=== PATIENT | female | born 1950 | race Caucasian/White ===

== ENCOUNTER → 2017-08-25 | Outpatient (CLI) | payer MEDICARE, OTHER ==
[2017-08-25] MEDS: GADOBUTROL 10 MMOL/10 ML VIAL IV (12:19)
== END | disposition home or self-care (01) ==
LOC: KCIC MRI 11:17
DX: K76.89 Other specified diseases of liver (principal); N28.1 Cyst of kidney, acquired; I51.7 Cardiomegaly; I10 Essential (primary) hypertension
CPT/HCPCS: 74183; A9585

== ENCOUNTER 2018-04-20 06:19 | Emergency (ER) | payer MEDICARE, OTHER ==
[~2018-04-20] VITALS: Ht 165.1 cm; Wt 79.4 kg
[~2018-04-20 06:19] MED LIST: AMLO10TA6 PO; ATOR10TA60 PO
[2018-04-20] MEDS ORDERED: IV NORMAL SALINE 1000ML BAG 1,000 ML IV ONE (07:15)
[2018-04-20] MEDS ORDERED: ONDANSETRON PF 4 MG/2 ML VIAL. IV ONE (07:15)
[2018-04-20] MEDS ORDERED: fentaNYL PF VIAL 100 MCG/2 ML VIAL IV ONE (07:15)
[2018-04-20] MEDS ORDERED: CONTRAST GIVEN. MC PRN (07:15)
[2018-04-20] MEDS ORDERED: IOHEXOL 300 MG/ML 100ML VIAL. IV ONE (07:30)
--- NOTE | 2018-04-20 07:31 | PHYS DOC ---
Past Medical History Past Medical History: Anxiety, Depression, High Cholesterol, Hypertension, Kidney Stone, UTI Past Surgical History: Tonsillectomy, Tubal ligation Additional Past Surgical Histo: kidney stone removal, lacerated ureter Alcohol Use: Rarely Drug Use: None Adult General Chief Complaint Chief Complaint: ABDOMINAL PAIN HPI HPI Patient is a 67 year old female who presents with abdominal pain as well as nausea and vomiting. Initially she had constipation she was prescribed a stool softener however that she began to have diarrhea and her pain moved over more to the left side so she was then being treated for diverticulitis by her primary care doctor she started metronidazole as well as Cipro on April 18 however symptoms seem to be worsening she is still vomiting she has crampy sharp abdominal pain mostly in the periumbilical but mostly left-sided abdominal area. No fever no chest pain symptoms are moderate there slowly worsening with time. Review of Systems Review of Systems Constitutional: Denies fever or chills [] Eyes: Denies change in visual acuity, redness, or eye pain [] HENT: Denies nasal congestion or sore throat [] Respiratory: Denies cough or shortness of breath [] Cardiovascular: No additional information not addressed in HPI [] Neurologic: Denies headache, focal weakness or sensory changes [] All other systems were reviewed and found to be within normal limits, except as documented in this note. Current Medications Current Medications Current Medications Medications (Trade) Dose Ordered Sig/Dakota Start Time Stop Time Status Last Admin Dose Admin Fentanyl Citrate (Fentanyl 2ml Vial) 50 mcg 1X ONCE 04/20/18 07:15 04/20/18 07:16 DC 04/20/18 07:59 50 MCG Info (CONTRAST GIVEN -- Rx MONITORING) 1 each PRN DAILY PRN 04/20/18 07:15 04/22/18 07:14 Iohexol (Omnipaque 300 Mg/ml) 75 ml 1X ONCE 04/20/18 07:30 04/20/18 07:31 DC 04/20/18 08:50 75 ML Magnesium Sulfate/ Dextrose 100 ml @ 100 mls/hr 1X ONCE 04/20/18 08:00 04/20/18 08:59 DC 04/20/18 08:00 100 MLS/HR Ondansetron HCl (Zofran) 4 mg 1X ONCE 04/20/18 07:15 04/20/18 07:39 DC Prochlorperazine Edisylate (Compazine) 10 mg 1X ONCE 04/20/18 08:00 04/20/18 08:01 DC 04/20/18 07:58 10 MG Sodium Chloride 1,000 ml @ 1,000 mls/hr 1X ONCE 04/20/18 07:15 04/20/18 08:14 DC 04/20/18 07:58 1,000 MLS/HR Allergies Allergies Allergies Coded Allergies Type Severity Reaction Last Updated Verified No Known Drug Allergies 08/25/17 No Physical Exam Physical Exam Constitutional: Well developed, well nourished, no acute distress, non-toxic appearance. [] HENT: Normocephalic, atraumatic, bilateral external ears normal, oropharynx moist, no oral exudates, nose normal. [] Eyes: PERRLA, EOMI, conjunctiva normal, no discharge. [] Neck: Normal range of motion, no tenderness, supple, no stridor. [] Cardiovascular:Heart rate regular rhythm, no murmur [] Lungs & Thorax: Bilateral breath sounds clear to auscultation [] Abdomen: Bowel sounds normal, soft, epigastric and left midabdo tenderness, no masses, no pulsatile masses. [] Skin: Warm, dry, no erythema, no rash. [] Back: No tenderness, no CVA tenderness. [] Extremities: No tenderness, no cyanosis, no clubbing, ROM intact, no edema. [] Neurologic: Alert and oriented X 3, normal motor function, normal sensory function, no focal deficits noted. [] Psychologic: Affect normal, judgement normal, mood normal. [] Current Patient Data Vital Signs Vital Signs Date Time Temp Pulse Resp B/P (MAP) Pulse Ox O2 Delivery O2 Flow Rate FiO2 04/20/18 06:48 98.2 72 18 130/72 (91) 96 Room Air 98.2 Lab Values Laboratory Tests Test 04/20/18 07:20 04/20/18 07:30 04/20/18 08:00 Urine Color Yellow Urine Clarity Clear Urine pH 6.0 Urine Specific [place] 1.020 Urine Protein Negative mg/dL (NEG-TRACE) Urine Glucose (UA) Negative mg/dL (NEG) Urine Ketones (Stick) 15 mg/dL (NEG) Urine Blood Negative (NEG) Urine Nitrite Negative (NEG) Urine Bilirubin Negative (NEG) Urine Urobilinogen Dipstick 0.2 mg/dL (0.2 mg/dL) Urine Leukocyte Esterase Small (NEG) Urine RBC Rare /HPF (0-2) Urine WBC 1-4 /HPF (0-4) Urine Squamous Epithelial Cells Occ /LPF Urine Bacteria 0 /HPF (0-FEW) Urine Mucus Slight /LPF White Blood Count 4.0 x10^3/uL (4.0-11.0) Red Blood Count 4.74 x10^6/uL (3.50-5.40) Hemoglobin 12.7 g/dL (12.0-15.5) Hematocrit 38.0 % (36.0-47.0) Mean Corpuscular Volume 80 fL (79-100) Mean Corpuscular Hemoglobin 27 pg (25-35) Mean Corpuscular Hemoglobin Concent 33 g/dL (31-37) Red Cell Distribution Width 16.0 % (11.5-14.5) H Platelet Count 294 x10^3/uL (140-400) Neutrophils (%) (Auto) 61 % (31-73) Lymphocytes (%) (Auto) 25 % (24-48) Monocytes (%) (Auto) 13 % (0-9) H Eosinophils (%) (Auto) 1 % (0-3) Basophils (%) (Auto) 1 % (0-3) Neutrophils # (Auto) 2.4 x10^3uL (1.8-7.7) Lymphocytes # (Auto) 1.0 x10^3/uL (1.0-4.8) Monocytes # (Auto) 0.5 x10^3/uL (0.0-1.1) Eosinophils # (Auto) 0.0 x10^3/uL (0.0-0.7) Basophils # (Auto) 0.0 x10^3/uL (0.0-0.2) Sodium Level 141 mmol/L (136-145) Potassium Level 4.5 mmol/L (3.5-5.1) Chloride Level 104 mmol/L (98-107) Carbon Dioxide Level 24 mmol/L (21-32) Anion Gap 13 (6-14) Blood Urea Nitrogen 9 mg/dL (7-20) Creatinine 0.7 mg/dL (0.6-1.0) Estimated GFR (Cockcroft-Gault) 83.5 BUN/Creatinine Ratio 13 (6-20) Glucose Level 98 mg/dL (70-99) Calcium Level 9.6 mg/dL (8.5-10.1) Total Bilirubin 0.3 mg/dL (0.2-1.0) Aspartate Amino Transferase (AST) 41 U/L (15-37) H Alanine Aminotransferase (ALT) 29 U/L (14-59) Alkaline Phosphatase 95 U/L (46-116) Total Protein 7.0 g/dL (6.4-8.2) Albumin 3.6 g/dL (3.4-5.0) Albumin/Globulin Ratio 1.1 (1.0-1.7) Lipase 133 U/L (73-393) Laboratory Tests 04/20/18 07:30 Laboratory Tests 04/20/18 08:00 EKG EKG EKG shows a normal sinus rhythm rate of 63 no acute ischemic changes noted however there is some nonspecific ST changes noted inferiorly QTC was 518 by computer read but shorter by my read is about 420 i think there is artifact that is making the computer read incorrect. no obvious ST elevation was noted.[ ] Radiology/Procedures Radiology/Procedures [] Impressions: IMPRESSION: 1. No acute intra-abdominal findings. 2. Multiple liver cysts. Electronically signed by: Reagan Garcia MD (04/20/2018 9:08 AM) [id number] Course & Med Decision Making Course & Med Decision Making Pertinent Labs and Imaging studies reviewed. (See chart for details) 67-year-old female who is presenting with initially had vomiting with constipation was treated with MiraLAX then went back and was still having discomfort and then some diarrhea so was prescribed Flagyl and Cipro over last couple of days and she is feeling worse ER workup is negative labs urine CT scan patient feels better in the emergency room after the above treatment she was discharged in stable condition. Return precautions were discussed and she was understanding. Dragon Disclaimer Dragon Disclaimer This electronic medical record was generated, in whole or in part, using a voice recognition dictation system. Departure Departure Impression: Primary Impression: Abdominal pain Disposition: HOME, SELF-CARE Condition: STABLE Referrals: BUD DE DIOS MD (PCP) EDUARDO ROSA MD Apr 20, 2018 07:31
[2018-04-20 07:34] LABS: BILIRUBIN,URINE NEGATIVE (NEG); CLARITY,URINE CLEAR; COLOR,URINE YELLOW; NITRITE,URINE NEGATIVE (NEG); PROTEIN,URINE NEGATIVE (NEG-TRACE); UROBILINOGEN,URINE 0.2 mg/dL (0.2 mg/dL)
[2018-04-20 07:44] LABS: BASO % 1 % (0-3); EOS % 1 % (0-3); HEMOGLOBIN 12.7 g/dL (12.0-15.5); LYMPH % 25 % (24-48); MEAN CORPUSCULAR HEMOGLOBIN 27 pg (25-35); MEAN CORPUSCULAR HGB CONC 33 g/dL (31-37); MEAN CORPUSCULAR VOLUME 80 fL (79-100); MONO # 0.5 x10^3/uL (0.0-1.1); MONO % 13 % (0-9); NEUT # 2.4 x10^3uL (1.8-7.7); NEUT % 61 % (31-73); PLATELET COUNT 294 x10^3/uL (140-400); RED BLOOD COUNT 4.74 x10^6/uL (3.50-5.40)
[2018-04-20 07:46] LABS: BACTERIA,URINE 0 /HPF (0-FEW); RBC,URINE RARE /HPF (0-2); SQUAMOUS EPITHELIAL CELL,UR OCC /LPF
[2018-04-20] MEDS ORDERED: PROCHLORPERAZINE 10 MG/2 ML VIAL. IV ONE (08:00)
[2018-04-20] MEDS ORDERED: MAGNESIUM SULFATE 1GM 100 ML IV ONE (08:00)
[2018-04-20 08:25] LABS: CALCIUM 9.6 mg/dL (8.5-10.1); CREATININE 0.7 mg/dL (0.6-1.0); GFR 83.5
[2018-04-20 08:27] LABS: POTASSIUM 4.5 mmol/L (3.5-5.1)
[2018-04-20 08:31] LABS: ALBUMIN 3.6 g/dL (3.4-5.0); ALBUMIN/GLOBULIN RATIO 1.1 (1.0-1.7); TOTAL BILIRUBIN 0.3 mg/dL (0.2-1.0)
--- NOTE | 2018-04-20 08:40 | EKG ---
[facility] [address] [place] [address] Test Date: 2018-04-20 Test Time: 07:28:49 Pat Name: FRANK BECKWITH Department: Room: Gender: F [employer] In[employer]: NICOLE : 1950 Requested By: EDUARDO ROSA Order Number: [id number] Reading MD: Sunil Ordonez Measurements Intervals [place] Rate: 63 P: 21 CT: 166 QRS: -26 QRSD: 74 T: 24 QT: 502 QTc: 518 Interpretive Statements SINUS RHYTHM LEFTWARD AXIS QRS(T) CONTOUR ABNORMALITY CONSIDER ANTEROSEPTAL MYOCARDIAL DAMAGE INFERIOR Q WAVES PROLONGED QT POSSIBLY ABNORMAL ECG RI6.01 No previous ECG available for comparison Electronically Signed On 04-27-2018 10:59:15 [employer] CAP[employer] by Sunil Ordonez
--- NOTE | 2018-04-20 09:12 | RAD ---
Examination: CT of the abdomen pelvis with IV contrast HISTORY: History of abdominal pain, vomiting COMPARISON: 08/09/2017 TECHNIQUE: Axial CT images of the abdomen pelvis were performed with IV contrast and coronal sagittal reformats are performed. Exposure: One or more of the following individualized dose reduction techniques were utilized for this examination: 1. Automated exposure control 2. Adjustment of the mA and/or kV according to patient size 3. Use of iterative reconstruction technique FINDINGS: Mild bibasilar lung atelectasis. No evidence of free air identified in the abdomen. Multiple cystic structures identified in the liver similar to prior exam likely cysts. The gallbladder is mildly distended. The visualized spleen, adrenals grossly appears unremarkable. The stomach is mildly distended. The visualized pancreas grossly appears unremarkable. The small bowel is nondilated. Feces and gas noted in the colon. The appendix is normal. The bilateral kidneys enhance symmetrically. Urinary bladder is mildly distended moderate degenerative changes lumbar spine. Minimal anterolisthesis of L4 on L5. IMPRESSION: 1. No acute intra-abdominal findings. 2. Multiple liver cysts. Electronically signed by: Reagan Garcia MD (04/20/2018 9:08 AM) [place] [id number]
[2018-04-20 10:00] VITALS: BP 134/77
== END 2018-04-20 10:12 | disposition home or self-care (01) ==
LOC: ER 06:19
DX: R10.13 Epigastric pain (principal); R11.2 Nausea with vomiting, unspecified; R19.7 Diarrhea, unspecified; K76.89 Other specified diseases of liver; I10 Essential (primary) hypertension; E78.00 Pure hypercholesterolemia, unspecified; Z87.440 Personal history of urinary (tract) infections; Z87.442 Personal history of urinary calculi; Z98.51 Tubal ligation status
CPT/HCPCS: 36415; 74177; 80053; 81001; 83690; 84484; 85025; 87086; 93005; 96361; 96365; 96375; 99284; J0780; J3010; J3475; J7030; Q9967

== ENCOUNTER → 2018-11-07 | Outpatient (CLI) | payer MEDICARE, OTHER ==
[~2018-11-07] MED LIST changes: -AMLO10TA6 PO; +AMLO10TA8 PO
--- NOTE | 2018-11-07 12:19 | KCIC ---
Indication:History of nephrolithiasis. Back pain. TECHNIQUE: Grayscale, color Doppler and spectral waveform is of the kidneys obtained. COMPARISON:None FINDINGS: Right kidney measures 11.6 x 4.3 x 5.2 cm without hydronephrosis. IVC is within normal limits. No aortic aneurysm. Left kidney measures 12.2 x 4.7 x 4.8 cm without hydronephrosis. Multiple hepatic cysts are seen, the largest measuring 4.4 cm. Liver measures 17 cm in longest dimension and is normal in size. Main portal vein is patent. Urinary bladder is suboptimally distended. IMPRESSION: 1. No hydronephrosis. 2. No sonographic evidence of renal stones. If concern persists further evaluation with noncontrast CT abdomen pelvis is recommended. Electronically signed by: Christiano Sue DO (11/07/2018 12:17 PM) [facility]
== END | disposition home or self-care (01) ==
LOC: KCIC US 10:22
PROVIDERS: ATTEND Internal Medicine
DX: K76.89 Other specified diseases of liver (principal); N32.89 Other specified disorders of bladder; Z87.442 Personal history of urinary calculi
CPT/HCPCS: 76770

== ENCOUNTER 2019-03-20 10:17 | Emergency (ER) | payer MEDICARE, OTHER ==
[~2019-03-20] VITALS: Ht 165.1 cm; Wt 80.7 kg
[2019-03-20] MEDS ORDERED: IV NORMAL SALINE 1000ML BAG 1,000 ML IV SCH (10:46)
[2019-03-20] MEDS ORDERED: LIDO:MAALOX 1:1 20 ML SINGLE DOSE. SWSW ONE (11:00)
[2019-03-20] MEDS ORDERED: ONDANSETRON PF 4 MG/2 ML VIAL. IVP ONE (11:00)
--- NOTE | 2019-03-20 11:01 | PHYS DOC ---
Past Medical History Past Medical History: Anxiety, Depression, High Cholesterol, Hypertension, Kidney Stone, UTI Additional Past Medical Histor: stomach ulcer Past Surgical History: Tonsillectomy, Tubal ligation Additional Past Surgical Histo: kidney stone removal, lacerated ureter, upper and lower GI scope Alcohol Use: None Drug Use: None Adult General Chief Complaint Chief Complaint: ABDOMINAL PAIN [facility] HPI Patient is a 68-year-old female who presents to the emergency department for evaluation of some generalized abdominal pain, and nausea and vomiting. She states her symptoms have been on and off for several weeks. She saw gastroenterology and had an upper endoscopy in the middle of January, and was diagnosed with a gastric ulcer. She was placed on omeprazole, Carafate, and Zofran. However, she saw her GI doctor last week, and her Carafate was decreased because she felt it was making her worse. She states her symptoms are no better and she is continuing to have some generalized abdominal pain. She has not had any hematemesis, bloody stools, black stools, or diarrhea. She reports being somewhat constipated. She has not had any fevers or chills. She denies any chest pain. There are no alleviating or exacerbating factors to her symptoms otherwise. Review of Systems Review of Systems Constitutional: Denies fever or chills [] Eyes: Denies change in visual acuity, redness, or eye pain [] HENT: Denies nasal congestion or sore throat [] Respiratory: Denies cough or shortness of breath [] Cardiovascular: The patient denies any shortness of breath, chest pain, palpitations, or orthopnea[] GI: No additional information not addressed in HPI [] : Denies dysuria or hematuria [] Musculoskeletal: Denies back pain or joint pain [] Integument: Denies rash or skin lesions [] Neurologic: Denies headache, focal weakness or sensory changes [] Endocrine: Denies polyuria or polydipsia [] All other systems were reviewed and found to be within normal limits, except as documented in this note. Current Medications Current Medications Current Medications Medications (Trade) Dose Ordered Sig/Dakota Start Time Stop Time Status Last Admin Dose Admin Info (CONTRAST GIVEN -- Rx MONITORING) 1 each PRN DAILY PRN 03/20/19 11:45 03/22/19 11:44 Iohexol (Omnipaque 300 Mg/ml) 60 ml 1X ONCE 03/20/19 11:45 03/20/19 11:46 DC 03/20/19 11:45 60 ML Lorazepam (Ativan Inj) 0.5 mg 1X ONCE 03/20/19 11:00 03/20/19 11:01 DC 03/20/19 11:53 0.5 MG Multi-Ingredient Mouthwash/Gargle (Gi Cocktail) 20 ml 1X ONCE 03/20/19 11:00 03/20/19 11:01 DC 03/20/19 11:53 20 ML Ondansetron HCl (Zofran) 4 mg 1X ONCE 03/20/19 11:00 03/20/19 11:01 DC 03/20/19 11:53 4 MG Sodium Chloride 1,000 ml @ 1,000 mls/hr Q1H 03/20/19 10:46 03/20/19 11:45 DC 03/20/19 11:53 1,000 MLS/HR Allergies Allergies Allergies Coded Allergies Type Severity Reaction Last Updated Verified No Known Drug Allergies 08/25/17 No Physical Exam Physical Exam PHYSICAL EXAM: CONSTITUTIONAL: Well developed, well nourished HEAD: normocephalic, atraumatic EENT: PERRL, EOMI. Conjunctivae normal color, sclerae non-icteric; moist mucous membranes. NECK: Supple, non-tender; no meningismus. LUNGS: Lungs CTA, breathing even and unlabored. Normal air movement. HEART: Regular rate and rhythm, no murmur CHEST: No deformity; non-tender ABDOMEN: The abdomen is soft, there is mild diffuse tenderness to palpation to the entire abdomen without focal tenderness, rebound, or guarding, normal bowel sounds are present, no masses or bruits. EXTREM: Normal ROM; no deformity, no calf tenderness. Normal pulses palpable in all extremities. There is no pedal edema. SKIN: No rash; no diaphoresis NEURO: Alert; normal speech and cognition; CN's grossly intact; strength grossly intact without focal deficit. BACK: No CVA TTP. Current Patient Data Vital Signs Vital Signs Date Time Temp Pulse Resp B/P (MAP) Pulse Ox O2 Delivery O2 Flow Rate FiO2 03/20/19 13:06 72 153/79 (103) 95 Room Air 03/20/19 12:00 16 Lab Values Laboratory Tests Test 03/20/19 11:10 White Blood Count 5.1 x10^3/uL (4.0-11.0) Red Blood Count 4.86 x10^6/uL (3.50-5.40) Hemoglobin 14.4 g/dL (12.0-15.5) Hematocrit 42.8 % (36.0-47.0) Mean Corpuscular Volume 88 fL (79-100) Mean Corpuscular Hemoglobin 30 pg (25-35) Mean Corpuscular Hemoglobin Concent 34 g/dL (31-37) Red Cell Distribution Width 13.7 % (11.5-14.5) Platelet Count 320 x10^3/uL (140-400) Neutrophils (%) (Auto) 66 % (31-73) Lymphocytes (%) (Auto) 26 % (24-48) Monocytes (%) (Auto) 7 % (0-9) Eosinophils (%) (Auto) 1 % (0-3) Basophils (%) (Auto) 1 % (0-3) Neutrophils # (Auto) 3.3 x10^3/uL (1.8-7.7) Lymphocytes # (Auto) 1.3 x10^3/uL (1.0-4.8) Monocytes # (Auto) 0.3 x10^3/uL (0.0-1.1) Eosinophils # (Auto) 0.0 x10^3/uL (0.0-0.7) Basophils # (Auto) 0.1 x10^3/uL (0.0-0.2) Urine Collection Type Unknown Urine Color Yellow Urine Clarity Clear Urine pH 6.5 Urine Specific [place] 1.010 Urine Protein Negative mg/dL (NEG-TRACE) Urine Glucose (UA) Negative mg/dL (NEG) Urine Ketones (Stick) Negative mg/dL (NEG) Urine Blood Negative (NEG) Urine Nitrite Negative (NEG) Urine Bilirubin Negative (NEG) Urine Urobilinogen Dipstick 0.2 mg/dL (0.2 mg/dL) Urine Leukocyte Esterase Negative (NEG) Urine RBC 0 /HPF (0-2) Urine WBC 0 /HPF (0-4) Urine Squamous Epithelial Cells Few /LPF Urine Bacteria 0 /HPF (0-FEW) Urine Mucus Slight /LPF Sodium Level 141 mmol/L (136-145) Potassium Level 3.9 mmol/L (3.5-5.1) Chloride Level 104 mmol/L (98-107) Carbon Dioxide Level 27 mmol/L (21-32) Anion Gap 10 (6-14) Blood Urea Nitrogen 11 mg/dL (7-20) Creatinine 1.0 mg/dL (0.6-1.0) Estimated GFR (Cockcroft-Gault) 55.1 BUN/Creatinine Ratio 11 (6-20) Glucose Level 103 mg/dL (70-99) H Calcium Level 9.9 mg/dL (8.5-10.1) Total Bilirubin 0.4 mg/dL (0.2-1.0) Aspartate Amino Transferase (AST) 20 U/L (15-37) Alanine Aminotransferase (ALT) 15 U/L (14-59) Alkaline Phosphatase 85 U/L (46-116) Troponin I Quantitative < 0.017 ng/mL (0.000-0.055) Total Protein 7.6 g/dL (6.4-8.2) Albumin 4.0 g/dL (3.4-5.0) Albumin/Globulin Ratio 1.1 (1.0-1.7) Lipase 168 U/L (73-393) Laboratory Tests 03/20/19 11:10 Laboratory Tests 03/20/19 11:10 EKG EKG Normal sinus rhythm at a rate of 72 beats for minute, [] leftward axis, normal intervals, there are no acute ischemic ST/T changes. There is a rare PVC p resent. Radiology/Procedures Radiology/Procedures PROCEDURE: CT ABD PELV W/ IV CONTRST ONLY PQRS Compliance statement: One or more of the following individualized dose reduction techniques were utilized for this examination: 1. Automated exposure control. 2. Adjustment of the mA and/or kV according to patient size. 3. Use of iterative reconstruction technique. Indication: Abdominal pain. TECHNIQUE: CT abdomen and pelvis with IV contrast with multiplanar reformats. COMPARISON: 04/20/2018 FINDINGS: Heart is normal in size. No pericardial or pleural effusion. Clear lung bases. Multiple low attenuating liver lesions, the largest in segment 8 measuring 4 cm compatible with simple cysts. Spleen, gallbladder, pancreas, adrenals within normal limits. No nephrolithiasis or hydronephrosis. No free pelvic fluid or ascites. No enlarged retroperitoneal or pelvic adenopathy. No bowel obstruction. Normal appendix. Uterus is present. Urinary bladder demonstrates no radiopaque stone. No pneumoperitoneum. No suspicious bony lesion. IMPRESSION: No acute findings.[] PROCEDURE: ABDOMEN LTD ABDOMEN LTD History: Upper abdominal pain Comparison: CT exam the same day Findings: Multiple sonographic images of the abdomen are submitted. There is no abnormality of the pancreas. There is segmental visualization of the inferior vena cava. Abdominal aortic caliber is within normal limits up to 2.5 cm proximally. There are several hypoechoic foci of the liver, largest of the right lobe about 4.5 cm, overall sonographic features of cysts. There is mild coarsening of the echotexture of the liver, possible mild hepatic steatosis. Right lobe of the liver measured 16.6 cm longitudinal. Common bile duct is within normal limits about 0.5 cm. Gallbladder is present without intraluminal abnormality, wall thickening, pericholecystic fluid. Right kidney measured 10.5 x 4.4 x 4.4 cm, no hydronephrosis. Impression: 1. There are hepatic cysts. There may be mild hepatic steatosis. There is no abnormality of the gallbladder. Course & Med Decision Making Course & Med Decision Making Patient remains stable. I discussed test results, the need for close follow-up, and return precautions. Pertinent Labs and Imaging studies reviewed. (See chart for details) []2:40 PM: Prior to being discharged, the patient called her GI doctors office, and was told that she was originally sent here for an ultrasound, which was obtained. I spoke with Dr. Wong, the patient's GI, and I discussed the test results with him. He felt that given the absence of any critical findings at this time, the patient was appropriate to follow up as an outpatient. Test results were reviewed with the patient and return precautions in detail were discussed. Dragon Disclaimer Dragon Disclaimer This electronic medical record was generated, in whole or in part, using a voice recognition dictation system. Departure Departure Impression: Primary Impression: Abdominal pain Disposition: HOME, SELF-CARE Condition: STABLE Referrals: SANTI العراقي MD (PCP) LINDSAY JUDD MD Patient Instructions: Abdominal Pain, Peptic Ulcer Disease BOZENA CASTAÑEDA MD Mar 20, 2019 11:01
[2019-03-20 11:17] LABS: BASO # 0.1 x10^3/uL (0.0-0.2); BASO % 1 % (0-3); EOS % 1 % (0-3); HEMATOCRIT 42.8 % (36.0-47.0); HEMOGLOBIN 14.4 g/dL (12.0-15.5); LYMPH # 1.3 x10^3/uL (1.0-4.8); LYMPH % 26 % (24-48); MEAN CORPUSCULAR HEMOGLOBIN 30 pg (25-35); MEAN CORPUSCULAR HGB CONC 34 g/dL (31-37); MEAN CORPUSCULAR VOLUME 88 fL (79-100); MONO # 0.3 x10^3/uL (0.0-1.1); MONO % 7 % (0-9); NEUT # 3.3 x10^3/uL (1.8-7.7); NEUT % 66 % (31-73); PLATELET COUNT 320 x10^3/uL (140-400); RED BLOOD COUNT 4.86 x10^6/uL (3.50-5.40); RED CELL DISTRIBUTION WIDTH 13.7 % (11.5-14.5); WHITE BLOOD COUNT 5.1 x10^3/uL (4.0-11.0)
[2019-03-20 11:19] LABS: BILIRUBIN,URINE NEGATIVE (NEG); CLARITY,URINE CLEAR; COLOR,URINE YELLOW; NITRITE,URINE NEGATIVE (NEG); PH,URINE 6.5; PROTEIN,URINE NEGATIVE (NEG-TRACE); UROBILINOGEN,URINE 0.2 mg/dL (0.2 mg/dL)
[2019-03-20 11:25] LABS: SQUAMOUS EPITHELIAL CELL,UR FEW /LPF
[2019-03-20 11:26] LABS: BACTERIA,URINE 0 /HPF (0-FEW); RBC,URINE 0 /HPF (0-2); WBC,URINE 0 /HPF (0-4)
[2019-03-20 11:31] LABS: CALCIUM 9.9 mg/dL (8.5-10.1); GFR 55.1; POTASSIUM 3.9 mmol/L (3.5-5.1)
[2019-03-20 11:37] LABS: ALBUMIN/GLOBULIN RATIO 1.1 (1.0-1.7); TOTAL BILIRUBIN 0.4 mg/dL (0.2-1.0); TOTAL PROTEIN 7.6 g/dL (6.4-8.2)
[2019-03-20] MEDS ORDERED: CONTRAST GIVEN. MC PRN (11:45)
[2019-03-20] MEDS ORDERED: IOHEXOL 300 MG/ML 100ML VIAL. IV ONE (11:45)
--- NOTE | 2019-03-20 12:55 | RAD ---
PQRS Compliance statement: One or more of the following individualized dose reduction techniques were utilized for this examination: 1. Automated exposure control. 2. Adjustment of the mA and/or kV according to patient size. 3. Use of iterative reconstruction technique. Indication: Abdominal pain. TECHNIQUE: CT abdomen and pelvis with IV contrast with multiplanar reformats. COMPARISON: 04/20/2018 FINDINGS: Heart is normal in size. No pericardial or pleural effusion. Clear lung bases. Multiple low attenuating liver lesions, the largest in segment 8 measuring 4 cm compatible with simple cysts. Spleen, gallbladder, pancreas, adrenals within normal limits. No nephrolithiasis or hydronephrosis. No free pelvic fluid or ascites. No enlarged retroperitoneal or pelvic adenopathy. No bowel obstruction. Normal appendix. Uterus is present. Urinary bladder demonstrates no radiopaque stone. No pneumoperitoneum. No suspicious bony lesion. IMPRESSION: No acute findings. Electronically signed by: Christiano Sue DO (03/20/2019 12:51 PM) [id number]
[2019-03-20 13:06] VITALS: BP 153/79
--- NOTE | 2019-03-20 13:53 | EKG ---
[facility] [address] [place] [address] Test Date: 2019-03-20 Test Time: 11:05:58 Pat Name: FRANK BECKWITH Department: Room: Gender: F [employer]: : 1950 Requested By: BOZENA CASTAÑEDA Order Number: [id number] Reading MD: Orestes Adams Measurements Intervals [place] Rate: 72 P: NE: QRS: -24 QRSD: 74 T: 21 QT: 374 QTc: 411 Interpretive Statements SINUS RHTYHM VENTRICULAR PREMATURE COMPLEX(ES) LEFTWARD AXIS QRS(T) CONTOUR ABNORMALITY CONSISTENT WITH INFERIOR INFARCT PROBABLY OLD ABNORMAL ECG Electronically Signed On 03-20-2019 13:59:10 [employer]OWEL DISTRIBUT[employer] by Orestes Adams
--- NOTE | 2019-03-20 14:17 | RAD ---
ABDOMEN LTD History: Upper abdominal pain Comparison: CT exam the same day Findings: Multiple sonographic images of the abdomen are submitted. There is no abnormality of the pancreas. There is segmental visualization of the inferior vena cava. Abdominal aortic caliber is within normal limits up to 2.5 cm proximally. There are several hypoechoic foci of the liver, largest of the right lobe about 4.5 cm, overall sonographic features of cysts. There is mild coarsening of the echotexture of the liver, possible mild hepatic steatosis. Right lobe of the liver measured 16.6 cm longitudinal. Common bile duct is within normal limits about 0.5 cm. Gallbladder is present without intraluminal abnormality, wall thickening, pericholecystic fluid. Right kidney measured 10.5 x 4.4 x 4.4 cm, no hydronephrosis. Impression: 1. There are hepatic cysts. There may be mild hepatic steatosis. There is no abnormality of the gallbladder. Electronically signed by: Marco Antonio Claudio MD (03/20/2019 2:14 PM) [id number]
== END 2019-03-20 14:48 | disposition home or self-care (01) ==
LOC: ER 10:17
DX: R10.84 Generalized abdominal pain (principal); R11.2 Nausea with vomiting, unspecified; E78.00 Pure hypercholesterolemia, unspecified; I10 Essential (primary) hypertension; Z87.442 Personal history of urinary calculi; Z87.440 Personal history of urinary (tract) infections; Z98.51 Tubal ligation status; Z87.19 Personal history of other diseases of the digestive system
CPT/HCPCS: 99285; J2060; J2405; J7030; Q9967; 36415; 74177; 76705; 80053; 81001; 83690; 84484; 85025; 93005; 96361; 96374; 96375

== ENCOUNTER 2019-03-23 09:54 | Inpatient (IN) | payer MEDICARE, OTHER ==
[~2019-03-23] VITALS: Ht 165.1 cm; Wt 81.3 kg
[2019-03-23] MEDS ORDERED: ONDANSETRON PF 4 MG/2 ML VIAL. IV ONE (10:45)
[2019-03-23] MEDS ORDERED: IV NORMAL SALINE 1000ML BAG 1,000 ML IV ONE (10:45)
--- NOTE | 2019-03-23 10:52 | PHYS DOC ---
Past Medical History Past Medical History: Anxiety, Depression, High Cholesterol, Hypertension, Kidney Stone, UTI Additional Past Medical Histor: stomach ulcer Past Surgical History: Tonsillectomy, Tubal ligation Additional Past Surgical Histo: kidney stone removal, lacerated ureter, upper and lower GI scope Alcohol Use: None Drug Use: None Adult General Chief Complaint Chief Complaint: BLOODY STOOL HPI HPI Patient is a 68 year old female who presents with 1 week of nausea, vomiting, abdominal pain. Patient states today she had a bowel movement in there was some red blood in the stool. Patient states there is no clots. Patient states she's never seen that much blood in her stool. Patient states the stool was soft and she is not constipated. Patient was here on March 20, 2019 for the same symptoms except for she was not having the blood in the stool. At this time she had a abdomen pelvis CT with IV contrast and an ultrasound and both were negative for any acute findings. Patient states that she took Zofran at 6:00 this morning along with her Carafate, omeprazole Review of Systems Review of Systems Constitutional: fever or chills [] GI: Generalized abdominal pain, nausea, vomiting, bloody stools or denies diarrhea [] Neurologic: Lightheadedness. Denies headache, focal weakness or sensory changes [] All other systems were reviewed and found to be within normal limits, except as documented in this note. Current Medications Current Medications Current Medications Medications (Trade) Dose Ordered Sig/Dakota Start Time Stop Time Status Last Admin Dose Admin Fentanyl Citrate (Fentanyl 2ml Vial) 50 mcg 1X ONCE 03/23/19 12:30 03/23/19 12:31 UNV Ondansetron HCl (Zofran) 4 mg 1X ONCE 03/23/19 10:45 03/23/19 10:46 DC 03/23/19 10:51 4 MG Prochlorperazine Edisylate (Compazine) 10 mg 1X ONCE 03/23/19 12:30 03/23/19 12:31 UNV Sodium Chloride 1,000 ml @ 1,000 mls/hr 1X ONCE 03/23/19 10:45 03/23/19 11:44 DC 03/23/19 10:51 1,000 MLS/HR Allergies Allergies Allergies Coded Allergies Type Severity Reaction Last Updated Verified No Known Drug Allergies 08/25/17 No Physical Exam Physical Exam Constitutional: Well developed, well nourished, no acute distress, non-toxic appearance. [] HENT: Normocephalic, atraumatic, bilateral external ears normal, oropharynx moist, no oral exudates, nose normal. [] Eyes: PERRLA, EOMI, conjunctiva normal, no discharge. [] Neck: Normal range of motion, no tenderness, supple, no stridor. [] Cardiovascular:Heart rate regular rhythm, no murmur [] Lungs & Thorax: Bilateral breath sounds clear to auscultation [] Abdomen: Bowel sounds normal, soft, no tenderness, no masses, no pulsatile masses. [] Skin: Warm, dry, no erythema, no rash. [] Back: No tenderness, no CVA tenderness. [] Extremities: No tenderness, no cyanosis, no clubbing, ROM intact, no edema. [] Neurologic: Alert and oriented X 3, normal motor function, normal sensory function, no focal deficits noted. [] Psychologic: Affect normal, judgement normal, mood normal. [] Current Patient Data Vital Signs Vital Signs Date Time Temp Pulse Resp B/P (MAP) Pulse Ox O2 Delivery O2 Flow Rate FiO2 03/23/19 11:00 62 152/65 (94) 97 03/23/19 10:50 Room Air 03/23/19 10:30 98.6 18 98.6 Lab Values Laboratory Tests Test 03/23/19 10:28 03/23/19 10:35 03/23/19 10:45 03/23/19 11:10 Urine Collection Type Unknown Urine Color Yellow Urine Clarity Clear Urine pH 7.0 Urine Specific [place] 1.015 Urine Protein Negative mg/dL (NEG-TRACE) Urine Glucose (UA) Negative mg/dL (NEG) Urine Ketones (Stick) 15 mg/dL (NEG) Urine Blood Small (NEG) Urine Nitrite Negative (NEG) Urine Bilirubin Negative (NEG) Urine Urobilinogen Dipstick 0.2 mg/dL (0.2 mg/dL) Urine Leukocyte Esterase Negative (NEG) Urine RBC Occ /HPF (0-2) Urine WBC Occ /HPF (0-4) Urine Squamous Epithelial Cells Mod /LPF Urine Bacteria 0 /HPF (0-FEW) Urine Mucus Slight /LPF Stool Occult Blood Positive (NEG) White Blood Count 4.6 x10^3/uL (4.0-11.0) Red Blood Count 4.92 x10^6/uL (3.50-5.40) Hemoglobin 14.7 g/dL (12.0-15.5) Hematocrit 43.3 % (36.0-47.0) Mean Corpuscular Volume 88 fL (79-100) Mean Corpuscular Hemoglobin 30 pg (25-35) Mean Corpuscular Hemoglobin Concent 34 g/dL (31-37) Red Cell Distribution Width 13.8 % (11.5-14.5) Platelet Count 293 x10^3/uL (140-400) Neutrophils (%) (Auto) 70 % (31-73) Lymphocytes (%) (Auto) 21 % (24-48) L Monocytes (%) (Auto) 8 % (0-9) Eosinophils (%) (Auto) 0 % (0-3) Basophils (%) (Auto) 1 % (0-3) Neutrophils # (Auto) 3.2 x10^3/uL (1.8-7.7) Lymphocytes # (Auto) 1.0 x10^3/uL (1.0-4.8) Monocytes # (Auto) 0.3 x10^3/uL (0.0-1.1) Eosinophils # (Auto) 0.0 x10^3/uL (0.0-0.7) Basophils # (Auto) 0.0 x10^3/uL (0.0-0.2) Sodium Level 140 mmol/L (136-145) Potassium Level 4.4 mmol/L (3.5-5.1) Chloride Level 104 mmol/L (98-107) Carbon Dioxide Level 29 mmol/L (21-32) Anion Gap 7 (6-14) Blood Urea Nitrogen 12 mg/dL (7-20) Creatinine 0.9 mg/dL (0.6-1.0) Estimated GFR (Cockcroft-Gault) 62.3 BUN/Creatinine Ratio 13 (6-20) Glucose Level 100 mg/dL (70-99) H Calcium Level 9.3 mg/dL (8.5-10.1) Total Bilirubin 0.5 mg/dL (0.2-1.0) Aspartate Amino Transferase (AST) 21 U/L (15-37) Alanine Aminotransferase (ALT) 18 U/L (14-59) Alkaline Phosphatase 76 U/L (46-116) Troponin I Quantitative < 0.017 ng/mL (0.000-0.055) Total Protein 6.8 g/dL (6.4-8.2) Albumin 3.8 g/dL (3.4-5.0) Albumin/Globulin Ratio 1.3 (1.0-1.7) Laboratory Tests 03/23/19 10:45 Laboratory Tests 03/23/19 11:10 EKG EKG Sinus Rhythm and no STEMI[] Interpretation Time: [address] Silva Radiology/Procedures Radiology/Procedures [] Course & Med Decision Making Course & Med Decision Making Patient states she does not really have any pain but she is uncomfortable states she she's very nauseated. Patient states she kept her medicine and applesauce down. Patient states she did vomit once this morning and was bile. Patient's generalized abdominal tenderness with palpation. Abdomen is soft. Alert and oriented. Ambulatory with a steady gait. Vital signs within normal limits. Speaks in full clear sentences. Skin pink warm and dry. Patient states she called Dr. Hull this morning and that he stated she did not need to go to the emergency room at this time. Patient states at times she will get dizzy but that has been going on all week. She states she's also gets chills that come and go but that it this has also been going on for the last week. Patient rates her generalized discomfort a 7 out of 10. 1223: Patient is still having nausea with dry heaves. Patient is having right lower back pain that wraps around to the right lower abdomen pain. Patient states she would like to stay because she does not want to go home alone and the blood in the dizziness is scaring her. He shouldn't states that she feels like her symptoms are getting worse or she over this last week. I am currently waiting on Dr. Hull to call me back and that I will let him know. 1228: I have spoken to and he states to admit her and I will consult him. Rectal Exam: Normal tone, left outer rectal nontender, non thrombosed, nonbleeding, hemorrhoids, no inner masses, Positive control Stool: Brown Guaiac: Positive Dragon Disclaimer Dragon Disclaimer This electronic medical record was generated, in whole or in part, using a voice recognition dictation system. Departure Departure Impression: Primary Impression: Bloody stool Additional Impressions: Abdominal pain Nausea & vomiting Disposition: 09 ADMITTED INPATIENT Admitting Physician: NOREEN MCGUIRE) Condition: STABLE Referrals: SANTI العراقي MD (PCP) Problem Qualifiers Additional Impressions: Abdominal pain Abdominal location: generalized Qualified Codes: R10.84 - Generalized ab dominal pain Nausea & vomiting Vomiting type: unspecified Vomiting Intractability: non-intractable Qualified Codes: R11.2 - Nausea with vomiting, unspecified LAILA GRIMM [employer] Mar 23, 2019 10:52
[2019-03-23 10:58] LABS: BASO % 1 % (0-3); EOS % 0 % (0-3); HEMATOCRIT 43.3 % (36.0-47.0); HEMOGLOBIN 14.7 g/dL (12.0-15.5); LYMPH % 21 % (24-48); MEAN CORPUSCULAR HEMOGLOBIN 30 pg (25-35); MEAN CORPUSCULAR HGB CONC 34 g/dL (31-37); MEAN CORPUSCULAR VOLUME 88 fL (79-100); MONO # 0.3 x10^3/uL (0.0-1.1); MONO % 8 % (0-9); NEUT # 3.2 x10^3/uL (1.8-7.7); NEUT % 70 % (31-73); PLATELET COUNT 293 x10^3/uL (140-400); RED BLOOD COUNT 4.92 x10^6/uL (3.50-5.40); RED CELL DISTRIBUTION WIDTH 13.8 % (11.5-14.5); WHITE BLOOD COUNT 4.6 x10^3/uL (4.0-11.0)
[2019-03-23 11:15] LABS: FECAL OB PT POSITIVE (NEG)
[2019-03-23 11:30] LABS: CALCIUM 9.3 mg/dL (8.5-10.1); CREATININE 0.9 mg/dL (0.6-1.0); GFR 62.3; POTASSIUM 4.4 mmol/L (3.5-5.1)
[2019-03-23 11:36] LABS: ALBUMIN 3.8 g/dL (3.4-5.0); ALBUMIN/GLOBULIN RATIO 1.3 (1.0-1.7); TOTAL BILIRUBIN 0.5 mg/dL (0.2-1.0); TOTAL PROTEIN 6.8 g/dL (6.4-8.2)
[2019-03-23 11:44] LABS: BACTERIA,URINE 0 /HPF (0-FEW); BILIRUBIN,URINE NEGATIVE (NEG); CLARITY,URINE CLEAR; COLOR,URINE YELLOW; NITRITE,URINE NEGATIVE (NEG); PROTEIN,URINE NEGATIVE (NEG-TRACE); RBC,URINE OCC /HPF (0-2); SQUAMOUS EPITHELIAL CELL,UR MOD /LPF; UROBILINOGEN,URINE 0.2 mg/dL (0.2 mg/dL); WBC,URINE OCC /HPF (0-4)
[2019-03-23] MEDS ORDERED: fentaNYL PF VIAL 100 MCG/2 ML VIAL IVP ONE (12:30)
[2019-03-23] MEDS ORDERED: PROCHLORPERAZINE 10 MG/2 ML VIAL. IV ONE (12:30)
[2019-03-23] MEDS ORDERED: ONDANSETRON PF 4 MG/2 ML VIAL. IV PRN ×2 (13:00→22:45)
[2019-03-23] MEDS ORDERED: fentaNYL PF VIAL 100 MCG/2 ML VIAL IV PRN (13:00)
[2019-03-23] MEDS: IV NORMAL SALINE 1000ML BAG 1,000 ML IV SCH ×2 (13:05→21:46)
[2019-03-23 15:00] VITALS: BP 149/66
[2019-03-23 19:00] VITALS: BP 139/63
[2019-03-23] MEDS: ACETAMINOPHEN 325 MG TABLET. PO PRN ×2 (19:50→23:15)
--- NOTE | 2019-03-23 22:40 | PDOC1 ---
History and Physical Date of Admission Date of Admission DATE: 03/23/19 TIME: 22:18 Identification/Chief Complaint Chief Complaint Lower GI bleeding Source Source: Patient History of Present Illness History of Present Illness Ms Liz is a 68 yo F w/ PMHx Anxiety, Depression, High Cholesterol, Hypertension, Kidney Stone (previous lacerated ureter), PUD who presents to the emergency department for evaluation of some generalized abdominal pain, and nausea and vomiting. She states her symptoms have been on and off for several weeks. She saw gastroenterology and had an upper endoscopy in the middle of January, and was diagnosed with a gastric ulcer. She was placed on omeprazole, Carafate, and Zofran. However, she saw her GI doctor last week, and her Carafate was decreased because she felt it was making her worse. She states her symptoms are no better and she is continuing to have some generalized abdominal pain. She has not had any hematemesis, but now she notes bloody stools, black stools. She reports being somewhat constipated. She has not had any fevers or chills. She denies any chest pain. There are no alleviating or exacerbating factors to her symptoms otherwise. She had an ED visit on 03/20 for similar symptoms, imaging was essentially negative at that time, now she has been vomiting daily since then and having more blood in her stools. Past Medical History Cardiovascular: HTN, Hyperlipidemia Pulmonary: No pertinent hx GI: Peptic Ulcer disease Heme/Onc: No pertinent hx Hepatobiliary: No pertinent hx Psych: Anxiety, Depression Rheumatologic: No pertinent hx Infectious disease: No pertinent hx ENT: No pertinent hx Renal/: No pertinent hx Endocrine: No pertinent hx Dermatology: No pertinent hx Past Surgical History Past Surgical History kidney stone removal, lacerated ureter, upper and lower GI scope Past Surgical History: Tubal Ligation, Tonsillectomy Family History Family History: High Cholestrol, Hypertension Social History Smoke: No ALCOHOL: none Drugs: None Current Problem List Problem List Problems Medical Problems: (1) Abdominal pain Status: Acute (2) Bloody stool Status: Acute (3) Nausea & vomiting Status: Acute Current Medications Current Medications Current Medications Sodium Chloride 1,000 ml @ 1,000 mls/hr 1X ONCE IV Last administered on 03/23/19at 10:51; Start 03/23/19 at 10:45; Stop 03/23/19 at 11:44; Status DC Ondansetron HCl (Zofran) 4 mg 1X ONCE IV Last administered on 03/23/19at 10:51; Start 03/23/19 at 10:45; Stop 03/23/19 at 10:46; Status DC Prochlorperazine Edisylate (Compazine) 10 mg 1X ONCE IV Last administered on 03/23/19at 12:40; Start 03/23/19 at 12:30; Stop 03/23/19 at 12:31; Status DC Fentanyl Citrate (Fentanyl 2ml Vial) 50 mcg 1X ONCE IVP Last administered on 03/23/19at 12:41; Start 03/23/19 at 12:30; Stop 03/23/19 at 12:31; Status DC Ondansetron HCl (Zofran) 4 mg PRN Q8HRS PRN IV NAUSEA/VOMITING Last administered on 03/23/19at 19:54; Start 03/23/19 at 13:00; Stop 03/24/19 at 12:59 Fentanyl Citrate (Fentanyl 2ml Vial) 50 mcg PRN Q1HR PRN IV PAIN; Start 03/23/19 at 13:00; Stop 03/24/19 at 12:59 Sodium Chloride 1,000 ml @ 100 mls/hr Q10H IV Last administered on 03/23/19at 21:46; Start 03/23/19 at 12:58; Stop 03/24/19 at 12:57 Acetaminophen (Tylenol) 650 mg PRN Q6HRS PRN PO pain Last administered on 03/23/19at 19:50; Start 03/23/19 at 19:45 Active Scripts Active Reported Atorvastatin Calcium 10 Mg Tablet 10 Mg PO HS Amlodipine Besylate 10 Mg Tablet 10 Mg PO DAILY Allergies Allergies: Coded Allergies: No Known Drug Allergies (Unverified , 08/25/17) ROS General: YES: Fatigue, Malaise; No: Chills, Night Sweats, Appetite, Other PSYCHOLOGICAL ROS: No: Anxiety, Behavioral Disorder, Concentration difficultie, Decreased libido, Depression, Disorientation, Hallucinations, Hostility, Irritablity, Memory difficulties, Mood Swings, Obsessive thoughts, Physical abuse, Sexual abuse, Sleep disturbances, Suicidal ideation, Other Eyes: No Blurry vision, No Decreased vision, No Double vision, No Dry eyes, No Excessive tearing, No Eye Pain, No Itchy Eyes, No Loss of vision, No Photophobia, No Scotomata, No Uses contacts, No Uses glasses, No Other HEENT: No: Heacaches, Visual Changes, Hearing change, Nasal congestion, Nasal discharge, Oral lesions, Sinus pain, Sore Throat, Epistaxis, Sneezing, Snoring, Tinnitus, Vertigo, Vocal changes, Other ALLERGY AND IMMUNOLOGY: No: Hives, Insect Bite Sensitivity, Itchy/Watery Eyes, Nasal Congestion, Post Nasal Drip, Seasonal Allergies, Other Hematological and Lymphatic: No: Bleeding Problems, Blood Clots, Blood Transfusions, Brusing, Night Sweats, Pallor, Swollen Lymph Nodes, Other ENDOCRINE: No: Breast Changes, Galactorrhea, Hair Pattern Changes, Hot Flashes, Malaise/lethargy, Mood Swings, Palpitations, Polydipsia/polyuria, Skin Changes, Temperature Intolerance, Unexpected Weight Changes, Other Breast: No New/Changing Breast Lumps, No Nipple changes, No Nipple discharge, No Other Respiratory: No: Cough, Hemoptysis, Orthopnea, Pleuritic Pain, Shortness of breath, SOB with excertion, Sputum Changes, Stridor, Tachypnea, Wheezing, Other Cardiovascular: No Chest Pain, No Palpitations, No Orthopnea, No Paroxysmal Noc. Dyspnea, No Edema, No Lt Headedness, No Other Gastrointestinal: Yes Nausea, Yes Vomiting, Yes Abdominal Pain, Yes Constipation, Yes Melena; No Diarrhea, No Hematochezia, No Other Genitourinary: No Dysuria, No Frequency, No Incontinence, No Hematuria, No Retention, No Discharge, No Urgency, No Pain, No Flank Pain, No Other, No , No , No , No , No , No , No Musculoskeletal: No Gait Disturbance, No Joint Pain, No Joint Stiffness, No Joint Swelling, No Muscle Pain, No Muscular Weakness, No Pain In:, No Swelling In:, No Other Neurological: No Behavorial Changes, No Bowel/Bladder ControlChng, No Confusion, No Dizziness, No Gait Disturbance, No Headaches, No Impaired Coord/balance, No Memory Loss, No Numbness/Tingling, No Seizures, No Speech Problems, No Tremors, No Visual Changes, No Weakness, No Other Skin: No Dry Skin, No Eczema, No Hair Changes, No Lumps, No Mole Changes, No Mottling, No Nail Changes, No Pruritus, No Rash, No Skin Lesion Changes, No Other, No Acne Physical Exam General: Alert, Oriented X3, Cooperative, No acute distress HEENT: Atraumatic, PERRLA, EOMI, Mucous membr. moist/pink Lungs: Clear to auscultation, Normal air movement Heart: S1S2, RRR, no thrills, no rubs Abdomen: Normal bowel sounds, Soft, No hepatosplenomegaly, No masses, Other (Epigastric tender) Rectal Exam: not examined Extremities: No clubbing, No cyanosis, No edema, Normal pulses, No tenderness/swelling Skin: No rashes, No breakdown, No significant lesion Neuro: Normal gait, Normal speech, Strength at 5/5 X4 ext, Normal tone, Sensation intact, Cranial nerves 3-12 NL, Reflexes 2+ Psych/Mental Status: Mental status NL, Mood NL Vitals Vitals Vital Signs Date Time Temp Pulse Resp B/P (MAP) Pulse Ox O2 Delivery O2 Flow Rate FiO2 03/23/19 20:00 Room Air 03/23/19 19:00 97.6 62 18 139/63 (88) 95 97.6 Labs Labs Laboratory Tests Test 03/23/19 10:28 03/23/19 10:35 03/23/19 10:45 03/23/19 11:10 Urine Collection Type Unknown Urine Color Yellow Urine Clarity Clear Urine pH 7.0 Urine Specific [place] 1.015 Urine Protein Negative mg/dL (NEG-TRACE) Urine Glucose (UA) Negative mg/dL (NEG) Urine Ketones (Stick) 15 mg/dL (NEG) Urine Blood Small (NEG) Urine Nitrite Negative (NEG) Urine Bilirubin Negative (NEG) Urine Urobilinogen Dipstick 0.2 mg/dL (0.2 mg/dL) Urine Leukocyte Esterase Negative (NEG) Urine RBC Occ /HPF (0-2) Urine WBC Occ /HPF (0-4) Urine Squamous Epithelial Cells Mod /LPF Urine Bacteria 0 /HPF (0-FEW) Urine Mucus Slight /LPF Stool Occult Blood Positive (NEG) White Blood Count 4.6 x10^3/uL (4.0-11.0) Red Blood Count 4.92 x10^6/uL (3.50-5.40) Hemoglobin 14.7 g/dL (12.0-15.5) Hematocrit 43.3 % (36.0-47.0) Mean Corpuscular Volume 88 fL (79-100) Mean Corpuscular Hemoglobin 30 pg (25-35) Mean Corpuscular Hemoglobin Concent 34 g/dL (31-37) Red Cell Distribution Width 13.8 % (11.5-14.5) Platelet Count 293 x10^3/uL (140-400) Neutrophils (%) (Auto) 70 % (31-73) Lymphocytes (%) (Auto) 21 % (24-48) Monocytes (%) (Auto) 8 % (0-9) Eosinophils (%) (Auto) 0 % (0-3) Basophils (%) (Auto) 1 % (0-3) Neutrophils # (Auto) 3.2 x10^3/uL (1.8-7.7) Lymphocytes # (Auto) 1.0 x10^3/uL (1.0-4.8) Monocytes # (Auto) 0.3 x10^3/uL (0.0-1.1) Eosinophils # (Auto) 0.0 x10^3/uL (0.0-0.7) Basophils # (Auto) 0.0 x10^3/uL (0.0-0.2) Sodium Level 140 mmol/L (136-145) Potassium Level 4.4 mmol/L (3.5-5.1) Chloride Level 104 mmol/L (98-107) Carbon Dioxide Level 29 mmol/L (21-32) Anion Gap 7 (6-14) Blood Urea Nitrogen 12 mg/dL (7-20) Creatinine 0.9 mg/dL (0.6-1.0) Estimated GFR (Cockcroft-Gault) 62.3 BUN/Creatinine Ratio 13 (6-20) Glucose Level 100 mg/dL (70-99) Calcium Level 9.3 mg/dL (8.5-10.1) Total Bilirubin 0.5 mg/dL (0.2-1.0) Aspartate Amino Transf (AST/SGOT) 21 U/L (15-37) Alanine Aminotransferase (ALT/SGPT) 18 U/L (14-59) Alkaline Phosphatase 76 U/L (46-116) Troponin I Quantitative < 0.017 ng/mL (0.000-0.055) Total Protein 6.8 g/dL (6.4-8.2) Albumin 3.8 g/dL (3.4-5.0) Albumin/Globulin Ratio 1.3 (1.0-1.7) Lipase 151 U/L (73-393) Laboratory Tests Test 03/23/19 10:28 03/23/19 10:35 03/23/19 10:45 03/23/19 11:10 Urine Collection Type Unknown Urine Color Yellow Urine Clarity Clear Urine pH 7.0 Urine Specific [place] 1.015 Urine Protein Negative mg/dL (NEG-TRACE) Urine Glucose (UA) Negative mg/dL (NEG) Urine Ketones (Stick) 15 mg/dL (NEG) Urine Blood Small (NEG) Urine Nitrite Negative (NEG) Urine Bilirubin Negative (NEG) Urine Urobilinogen Dipstick 0.2 mg/dL (0.2 mg/dL) Urine Leukocyte Esterase Negative (NEG) Urine RBC Occ /HPF (0-2) Urine WBC Occ /HPF (0-4) Urine Squamous Epithelial Cells Mod /LPF Urine Bacteria 0 /HPF (0-FEW) Urine Mucus Slight /LPF Stool Occult Blood Positive (NEG) White Blood Count 4.6 x10^3/uL (4.0-11.0) Red Blood Count 4.92 x10^6/uL (3.50-5.40) Hemoglobin 14.7 g/dL (12.0-15.5) Hematocrit 43.3 % (36.0-47.0) Mean Corpuscular Volume 88 fL (79-100) Mean Corpuscular Hemoglobin 30 pg (25-35) Mean Corpuscular Hemoglobin Concent 34 g/dL (31-37) Red Cell Distribution Width 13.8 % (11.5-14.5) Platelet Count 293 x10^3/uL (140-400) Neutrophils (%) (Auto) 70 % (31-73) Lymphocytes (%) (Auto) 21 % (24-48) Monocytes (%) (Auto) 8 % (0-9) Eosinophils (%) (Auto) 0 % (0-3) Basophils (%) (Auto) 1 % (0-3) Neutrophils # (Auto) 3.2 x10^3/uL (1.8-7.7) Lymphocytes # (Auto) 1.0 x10^3/uL (1.0-4.8) Monocytes # (Auto) 0.3 x10^3/uL (0.0-1.1) Eosinophils # (Auto) 0.0 x10^3/uL (0.0-0.7) Basophils # (Auto) 0.0 x10^3/uL (0.0-0.2) Sodium Level 140 mmol/L (136-145) Potassium Level 4.4 mmol/L (3.5-5.1) Chloride Level 104 mmol/L (98-107) Carbon Dioxide Level 29 mmol/L (21-32) Anion Gap 7 (6-14) Blood Urea Nitrogen 12 mg/dL (7-20) Creatinine 0.9 mg/dL (0.6-1.0) Estimated GFR (Cockcroft-Gault) 62.3 BUN/Creatinine Ratio 13 (6-20) Glucose Level 100 mg/dL (70-99) Calcium Level 9.3 mg/dL (8.5-10.1) Total Bilirubin 0.5 mg/dL (0.2-1.0) Aspartate Amino Transf (AST/SGOT) 21 U/L (15-37) Alanine Aminotransferase (ALT/SGPT) 18 U/L (14-59) Alkaline Phosphatase 76 U/L (46-116) Troponin I Quantitative < 0.017 ng/mL (0.000-0.055) Total Protein 6.8 g/dL (6.4-8.2) Albumin 3.8 g/dL (3.4-5.0) Albumin/Globulin Ratio 1.3 (1.0-1.7) Lipase 151 U/L (73-393) Images Images Abdominal US - Fatty liver, hepatic cysts CT abdomen/pelvis - Heart is normal in size. No pericardial or pleural effusion. Clear lung bases. Multiple low attenuating liver lesions, the largest in segment 8 measuring 4 cm compatible with simple cysts. Spleen, gallbladder, pancreas, adrenals within normal limits. No nephrolithiasis or hydronephrosis. No free pelvic fluid or ascites. No enlarged retroperitoneal or pelvic adenopathy. No bowel obstruction. Normal appendix. Uterus is present. Urinary bladder demonstrates no radiopaque stone. No pneumoperitoneum. No suspicious bony lesion. VTE Prophylaxis Ordered VTE Prophylaxis Devices: No VTE Pharmacological Prophylaxi: Contraindicated Assessment/Plan Assessment/Plan A/P: Intractable nausea and vomiting - possibly gastroenteritis. No hematemesis. Will keep on IV anti-emetics. NPO, IVF, consult GI Blood in stool - has been experiencing constipation, likely having diverticular bleeding, however with recent peptic ulcer diagnosis this may need further investigation Anxiety, Depression - cont meds High Cholesterol - cont statin Hypertension - cont meds PUD - cont PPI FEN - NPO PPX - SCDs FULL CODE Dispo - inpatient for nausea and vomiting GHISLAINE BARNETT MD Mar 23, 2019 22:40
[2019-03-23 23:00] VITALS: BP 133/60
[2019-03-23] MEDS: PANTOPRAZOLE IV PUSH 40 MG VIAL. IVP SCH (23:22)
[2019-03-24] MEDS: ACETAMINOPHEN 325 MG TABLET. PO PRN ×3 (02:35→20:43)
[2019-03-24 03:00] VITALS: BP 128/59
[2019-03-24] MEDS: PROCHLORPERAZINE 10 MG/2 ML VIAL. IV PRN ×2 (05:59→13:50)
[2019-03-24 07:00] VITALS: BP 134/61
[2019-03-24] MEDS: IV NORMAL SALINE 1000ML BAG 1,000 ML IV SCH (07:51)
[2019-03-24] MEDS: PANTOPRAZOLE IV PUSH 40 MG VIAL. IVP SCH (07:51)
--- NOTE | 2019-03-24 07:51 | PDOC ---
PROGRESS NOTES History of Present Illness History of Present Illness Images Images Abdominal US - Fatty liver, hepatic cysts CT abdomen/pelvis - Heart is normal in size. No pericardial or pleural effusion. Clear lung bases. Multiple low attenuating liver lesions, the largest in segment 8 measuring 4 cm compatible with simple cysts. Spleen, gallbladder, pancreas, adrenals within normal limits. No nephrolithiasis or hydronephrosis. No free pelvic fluid or ascites. No enlarged retroperitoneal or pelvic adenopathy. No bowel obstruction. Normal appendix. Uterus is present. Urinary bladder demonstrates no radiopaque stone. No pneumoperitoneum. No suspicious bony lesion. VTE Prophylaxis Ordered VTE Prophylaxis Devices: No VTE Pharmacological Prophylaxi: Contraindicated Assessment/Plan Assessment/Plan A/P: Intractable nausea and vomiting - possibly gastroenteritis. No hematemesis. Will keep on IV anti-emetics. NPO, IVF, consult GI Blood in stool - has been experiencing constipation, likely having diverticular bleeding, however with recent peptic ulcer diagnosis this may need further investigation Anxiety, Depression - cont meds High Cholesterol - cont statin Hypertension - cont meds PUD - cont PPI FEN - NPO PPX - SCDs FULL CODE Dispo - inpatient for nausea and vomiting Vitals Vitals Vital Signs Date Time Temp Pulse Resp B/P (MAP) Pulse Ox O2 Delivery O2 Flow Rate FiO2 03/24/19 03:00 98.3 73 18 128/59 (82) 93 Room Air 98.3 Physical Exam General: Alert, Oriented X3, Cooperative, No acute distress Abdomen: Normal bowel sounds, Soft, No hepatosplenomegaly, No masses, Other (Epigastric tender) Extremities: No clubbing, No cyanosis, No edema, Normal pulses, No tenderness/swelling Skin: No rashes, No breakdown, No significant lesion Labs LABS Laboratory Tests Test 03/23/19 10:28 03/23/19 10:35 03/23/19 10:45 03/23/19 11:10 Urine Collection Type Unknown Urine Color Yellow Urine Clarity Clear Urine pH 7.0 Urine Specific [place] 1.015 Urine Protein Negative mg/dL (NEG-TRACE) Urine Glucose (UA) Negative mg/dL (NEG) Urine Ketones (Stick) 15 mg/dL (NEG) Urine Blood Small (NEG) Urine Nitrite Negative (NEG) Urine Bilirubin Negative (NEG) Urine Urobilinogen Dipstick 0.2 mg/dL (0.2 mg/dL) Urine Leukocyte Esterase Negative (NEG) Urine RBC Occ /HPF (0-2) Urine WBC Occ /HPF (0-4) Urine Squamous Epithelial Cells Mod /LPF Urine Bacteria 0 /HPF (0-FEW) Urine Mucus Slight /LPF Stool Occult Blood Positive (NEG) White Blood Count 4.6 x10^3/uL (4.0-11.0) Red Blood Count 4.92 x10^6/uL (3.50-5.40) Hemoglobin 14.7 g/dL (12.0-15.5) Hematocrit 43.3 % (36.0-47.0) Mean Corpuscular Volume 88 fL (79-100) Mean Corpuscular Hemoglobin 30 pg (25-35) Mean Corpuscular Hemoglobin Concent 34 g/dL (31-37) Red Cell Distribution Width 13.8 % (11.5-14.5) Platelet Count 293 x10^3/uL (140-400) Neutrophils (%) (Auto) 70 % (31-73) Lymphocytes (%) (Auto) 21 % (24-48) Monocytes (%) (Auto) 8 % (0-9) Eosinophils (%) (Auto) 0 % (0-3) Basophils (%) (Auto) 1 % (0-3) Neutrophils # (Auto) 3.2 x10^3/uL (1.8-7.7) Lymphocytes # (Auto) 1.0 x10^3/uL (1.0-4.8) Monocytes # (Auto) 0.3 x10^3/uL (0.0-1.1) Eosinophils # (Auto) 0.0 x10^3/uL (0.0-0.7) Basophils # (Auto) 0.0 x10^3/uL (0.0-0.2) Sodium Level 140 mmol/L (136-145) Potassium Level 4.4 mmol/L (3.5-5.1) Chloride Level 104 mmol/L (98-107) Carbon Dioxide Level 29 mmol/L (21-32) Anion Gap 7 (6-14) Blood Urea Nitrogen 12 mg/dL (7-20) Creatinine 0.9 mg/dL (0.6-1.0) Estimated GFR (Cockcroft-Gault) 62.3 BUN/Creatinine Ratio 13 (6-20) Glucose Level 100 mg/dL (70-99) Calcium Level 9.3 mg/dL (8.5-10.1) Total Bilirubin 0.5 mg/dL (0.2-1.0) Aspartate Amino Transf (AST/SGOT) 21 U/L (15-37) Alanine Aminotransferase (ALT/SGPT) 18 U/L (14-59) Alkaline Phosphatase 76 U/L (46-116) Troponin I Quantitative < 0.017 ng/mL (0.000-0.055) Total Protein 6.8 g/dL (6.4-8.2) Albumin 3.8 g/dL (3.4-5.0) Albumin/Globulin Ratio 1.3 (1.0-1.7) Lipase 151 U/L (73-393) Assessment and Plan Assessmemt and Plan Problems Medical Problems: (1) Abdominal pain Status: Acute (2) Bloody stool Status: Acute (3) Nausea & vomiting Status: Acute Comment Review of Relevant I have reviewed the following items kasey (where applicable) has been applied. Labs Laboratory Tests Test 03/23/19 10:28 03/23/19 10:35 03/23/19 10:45 03/23/19 11:10 Urine Collection Type Unknown Urine Color Yellow Urine Clarity Clear Urine pH 7.0 Urine Specific [place] 1.015 Urine Protein Negative mg/dL (NEG-TRACE) Urine Glucose (UA) Negative mg/dL (NEG) Urine Ketones (Stick) 15 mg/dL (NEG) Urine Blood Small (NEG) Urine Nitrite Negative (NEG) Urine Bilirubin Negative (NEG) Urine Urobilinogen Dipstick 0.2 mg/dL (0.2 mg/dL) Urine Leukocyte Esterase Negative (NEG) Urine RBC Occ /HPF (0-2) Urine WBC Occ /HPF (0-4) Urine Squamous Epithelial Cells Mod /LPF Urine Bacteria 0 /HPF (0-FEW) Urine Mucus Slight /LPF Stool Occult Blood Positive (NEG) White Blood Count 4.6 x10^3/uL (4.0-11.0) Red Blood Count 4.92 x10^6/uL (3.50-5.40) Hemoglobin 14.7 g/dL (12.0-15.5) Hematocrit 43.3 % (36.0-47.0) Mean Corpuscular Volume 88 fL (79-100) Mean Corpuscular Hemoglobin 30 pg (25-35) Mean Corpuscular Hemoglobin Concent 34 g/dL (31-37) Red Cell Distribution Width 13.8 % (11.5-14.5) Platelet Count 293 x10^3/uL (140-400) Neutrophils (%) (Auto) 70 % (31-73) Lymphocytes (%) (Auto) 21 % (24-48) Monocytes (%) (Auto) 8 % (0-9) Eosinophils (%) (Auto) 0 % (0-3) Basophils (%) (Auto) 1 % (0-3) Neutrophils # (Auto) 3.2 x10^3/uL (1.8-7.7) Lymphocytes # (Auto) 1.0 x10^3/uL (1.0-4.8) Monocytes # (Auto) 0.3 x10^3/uL (0.0-1.1) Eosinophils # (Auto) 0.0 x10^3/uL (0.0-0.7) Basophils # (Auto) 0.0 x10^3/uL (0.0-0.2) Sodium Level 140 mmol/L (136-145) Potassium Level 4.4 mmol/L (3.5-5.1) Chloride Level 104 mmol/L (98-107) Carbon Dioxide Level 29 mmol/L (21-32) Anion Gap 7 (6-14) Blood Urea Nitrogen 12 mg/dL (7-20) Creatinine 0.9 mg/dL (0.6-1.0) Estimated GFR (Cockcroft-Gault) 62.3 BUN/Creatinine Ratio 13 (6-20) Glucose Level 100 mg/dL (70-99) Calcium Level 9.3 mg/dL (8.5-10.1) Total Bilirubin 0.5 mg/dL (0.2-1.0) Aspartate Amino Transf (AST/SGOT) 21 U/L (15-37) Alanine Aminotransferase (ALT/SGPT) 18 U/L (14-59) Alkaline Phosphatase 76 U/L (46-116) Troponin I Quantitative < 0.017 ng/mL (0.000-0.055) Total Protein 6.8 g/dL (6.4-8.2) Albumin 3.8 g/dL (3.4-5.0) Albumin/Globulin Ratio 1.3 (1.0-1.7) Lipase 151 U/L (73-393) Laboratory Tests Test 03/23/19 10:28 03/23/19 10:35 03/23/19 10:45 03/23/19 11:10 Urine Collection Type Unknown Urine Color Yellow Urine Clarity Clear Urine pH 7.0 Urine Specific [place] 1.015 Urine Protein Negative mg/dL (NEG-TRACE) Urine Glucose (UA) Negative mg/dL (NEG) Urine Ketones (Stick) 15 mg/dL (NEG) Urine Blood Small (NEG) Urine Nitrite Negative (NEG) Urine Bilirubin Negative (NEG) Urine Urobilinogen Dipstick 0.2 mg/dL (0.2 mg/dL) Urine Leukocyte Esterase Negative (NEG) Urine RBC Occ /HPF (0-2) Urine WBC Occ /HPF (0-4) Urine Squamous Epithelial Cells Mod /LPF Urine Bacteria 0 /HPF (0-FEW) Urine Mucus Slight /LPF Stool Occult Blood Positive (NEG) White Blood Count 4.6 x10^3/uL (4.0-11.0) Red Blood Count 4.92 x10^6/uL (3.50-5.40) Hemoglobin 14.7 g/dL (12.0-15.5) Hematocrit 43.3 % (36.0-47.0) Mean Corpuscular Volume 88 fL (79-100) Mean Corpuscular Hemoglobin 30 pg (25-35) Mean Corpuscular Hemoglobin Concent 34 g/dL (31-37) Red Cell Distribution Width 13.8 % (11.5-14.5) Platelet Count 293 x10^3/uL (140-400) Neutrophils (%) (Auto) 70 % (31-73) Lymphocytes (%) (Auto) 21 % (24-48) Monocytes (%) (Auto) 8 % (0-9) Eosinophils (%) (Auto) 0 % (0-3) Basophils (%) (Auto) 1 % (0-3) Neutrophils # (Auto) 3.2 x10^3/uL (1.8-7.7) Lymphocytes # (Auto) 1.0 x10^3/uL (1.0-4.8) Monocytes # (Auto) 0.3 x10^3/uL (0.0-1.1) Eosinophils # (Auto) 0.0 x10^3/uL (0.0-0.7) Basophils # (Auto) 0.0 x10^3/uL (0.0-0.2) Sodium Level 140 mmol/L (136-145) Potassium Level 4.4 mmol/L (3.5-5.1) Chloride Level 104 mmol/L (98-107) Carbon Dioxide Level 29 mmol/L (21-32) Anion Gap 7 (6-14) Blood Urea Nitrogen 12 mg/dL (7-20) Creatinine 0.9 mg/dL (0.6-1.0) Estimated GFR (Cockcroft-Gault) 62.3 BUN/Creatinine Ratio 13 (6-20) Glucose Level 100 mg/dL (70-99) Calcium Level 9.3 mg/dL (8.5-10.1) Total Bilirubin 0.5 mg/dL (0.2-1.0) Aspartate Amino Transf (AST/SGOT) 21 U/L (15-37) Alanine Aminotransferase (ALT/SGPT) 18 U/L (14-59) Alkaline Phosphatase 76 U/L (46-116) Troponin I Quantitative < 0.017 ng/mL (0.000-0.055) Total Protein 6.8 g/dL (6.4-8.2) Albumin 3.8 g/dL (3.4-5.0) Albumin/Globulin Ratio 1.3 (1.0-1.7) Lipase 151 U/L (73-393) Medications Current Medications Sodium Chloride 1,000 ml @ 1,000 mls/hr 1X ONCE IV Last administered on 03/23/19at 10:51; Start 03/23/19 at 10:45; Stop 03/23/19 at 11:44; Status DC Ondansetron HCl (Zofran) 4 mg 1X ONCE IV Last administered on 03/23/19at 10:51; Start 03/23/19 at 10:45; Stop 03/23/19 at 10:46; Status DC Prochlorperazine Edisylate (Compazine) 10 mg 1X ONCE IV Last administered on 03/23/19at 12:40; Start 03/23/19 at 12:30; Stop 03/23/19 at 12:31; Status DC Fentanyl Citrate (Fentanyl 2ml Vial) 50 mcg 1X ONCE IVP Last administered on 03/23/19 12:41; Start 03/23/19 at 12:30; Stop 03/23/19 at 12:31; Status DC Ondansetron HCl (Zofran) 4 mg PRN Q8HRS PRN IV NAUSEA/VOMITING Last administered on 03/23/19 19:54; Start 03/23/19 at 13:00; Stop 03/23/19 at 22:42; Status DC Fentanyl Citrate (Fentanyl 2ml Vial) 50 mcg PRN Q1HR PRN IV PAIN; Start 03/23/19 at 13:00; Stop 03/24/19 at 12:59 Sodium Chloride 1,000 ml @ 100 mls/hr Q10H IV Last administered on 03/23/19 21:46; Start 03/23/19 at 12:58; Stop 03/24/19 at 12:57 Acetaminophen (Tylenol) 650 mg PRN Q6HRS PRN PO pain Last administered on 03/24/19at 02:35; Start 03/23/19 at 19:45 Ondansetron HCl (Zofran) 4 mg PRN Q6HRS PRN IV NAUSEA/VOMITING Last administered on 03/24/19 02:27; Start 03/23/19 at 22:45 Amlodipine Besylate (Norvasc) 10 mg DAILY PO ; Start 03/24/19 at 09:00 Atorvastatin Calcium (Lipitor) 10 mg HS PO ; Start 03/24/19 at 21:00 Pantoprazole Sodium (PROTONIX VIAL for IV PUSH) 40 mg DAILYAC IVP Last administered on 03/23/19at 23:22; Start 03/23/19 at 23:00 Prochlorperazine Edisylate (Compazine) 10 mg PRN Q6HRS PRN IV NAUSEA/VOMITING Last administered on 03/24/19 05:59; Start 03/24/19 at 05:30 Active Scripts Active Reported Atorvastatin Calcium 10 Mg Tablet 10 Mg PO HS Amlodipine Besylate 10 Mg Tablet 10 Mg PO DAILY Vitals/I & O Vital Sign - Last 24 Hours 03/23/19 03/23/19 03/23/19 03/23/19 10:30 10:31 10:50 10:55 Temp 98.6 98.6 Pulse 76 74 68 80 Resp 18 B/P (MAP) 141/65 (90) 141/65 (90) 140/65 (90) 131/58 (82) Pulse Ox 96 98 O2 Delivery Room Air Room Air 03/23/19 03/23/19 03/23/19 03/23/19 11:00 11:30 12:22 12:39 Pulse 62 72 70 77 B/P (MAP) 152/65 (94) 140/66 (90) 162/67 (98) 149/71 (97) Pulse Ox 97 98 97 03/23/19 03/23/19 03/23/19 03/23/19 12:41 12:52 15:00 18:41 Temp 97.9 97.9 Pulse 72 62 Resp 15 18 B/P (MAP) 131/61 (84) 149/66 (93) Pulse Ox 96 96 O2 Delivery Room Air Room Air Room Air 03/23/19 03/23/19 03/23/19 03/24/19 19:00 20:00 23:00 03:00 Temp 97.6 98.4 98.3 97.6 98.4 98.3 Pulse 62 68 73 Resp 18 18 18 B/P (MAP) 139/63 (88) 133/60 (84) 128/59 (82) Pulse Ox 95 94 93 O2 Delivery Room Air Room Air Room Air Room Air Intake and Output 03/23/19 03/23/19 03/24/19 14:59 22:59 06:59 Intake Total 1000 ml 0 ml Balance 1000 ml 0 ml MAGO HUMPHREYS MD Mar 24, 2019 07:51
[2019-03-24] MEDS: amLODIPine BESYLATE 10 MG TABLET PO SCH (08:01)
--- NOTE | 2019-03-24 10:11 | EKG ---
[facility] [address] [place] [address] Test Date: 2019-03-23 Test Time: 11:02:59 Pat Name: FRANK BECKWITH Department: Room: Gender: F Formwork Carpenter: : 1950 Requested By: LAILA GRIMM Order Number: [id number] Reading MD: Measurements Intervals [place] Rate: 61 P: 18 DC: 164 QRS: -23 QRSD: 74 T: 22 QT: 436 QTc: 444 Interpretive Statements SINUS RHYTHM LEFT ATRIAL ABNORMALITY LEFTWARD AXIS QRS(T) CONTOUR ABNORMALITY CANNOT RULE OUT INFERIOR MYOCARDIAL DAMAGE ABNORMAL ECG No previous ECG available for comparison
[2019-03-24 11:00] VITALS: BP 148/70
[2019-03-24 12:09] LABS: BASO % 1 % (0-3); EOS % 0 % (0-3); HEMATOCRIT 40.5 % (36.0-47.0); HEMOGLOBIN 13.4 g/dL (12.0-15.5); LYMPH # 1.1 x10^3/uL (1.0-4.8); LYMPH % 21 % (24-48); MEAN CORPUSCULAR HEMOGLOBIN 29 pg (25-35); MEAN CORPUSCULAR HGB CONC 33 g/dL (31-37); MEAN CORPUSCULAR VOLUME 88 fL (79-100); MONO # 0.4 x10^3/uL (0.0-1.1); MONO % 8 % (0-9); NEUT # 3.7 x10^3/uL (1.8-7.7); NEUT % 71 % (31-73); PLATELET COUNT 267 x10^3/uL (140-400); RED BLOOD COUNT 4.59 x10^6/uL (3.50-5.40); RED CELL DISTRIBUTION WIDTH 13.7 % (11.5-14.5); WHITE BLOOD COUNT 5.3 x10^3/uL (4.0-11.0)
[2019-03-24 12:16] LABS: CALCIUM 9.1 mg/dL (8.5-10.1); CREATININE 0.8 mg/dL (0.6-1.0); GFR 71.3; POTASSIUM 3.9 mmol/L (3.5-5.1)
--- NOTE | 2019-03-24 13:31 | PDOC2 ---
CONSULT Date of Consult Date of Consult DATE: 03/24/19 TIME: 13:29 Reason for Consult Reason for Consult: Intractable Nausea/vomiting Past Medical History Cardiovascular: HTN, Hyperlipidemia Pulmonary: No pertinent hx GI: Peptic Ulcer disease Heme/Onc: No pertinent hx Hepatobiliary: No pertinent hx Psych: Anxiety, Depression Rheumatologic: No pertinent hx Infectious disease: No pertinent hx ENT: No pertinent hx Renal/: No pertinent hx Endocrine: No pertinent hx Dermatology: No pertinent hx Past Surgical History Past Surgical History: Tubal Ligation, Tonsillectomy Family History Family History: High Cholestrol, Hypertension Social History No ALCOHOL: none Drugs: None Current Problem List Problem List Problems Medical Problems: (1) Abdominal pain Status: Acute (2) Bloody stool Status: Acute (3) Nausea & vomiting Status: Acute Current Medications Current Medications Current Medications Sodium Chloride 1,000 ml @ 1,000 mls/hr 1X ONCE IV Last administered on 03/23/19at 10:51; Start 03/23/19 at 10:45; Stop 03/23/19 at 11:44; Status DC Ondansetron HCl (Zofran) 4 mg 1X ONCE IV Last administered on 03/23/19at 10:51; Start 03/23/19 at 10:45; Stop 03/23/19 at 10:46; Status DC Prochlorperazine Edisylate (Compazine) 10 mg 1X ONCE IV Last administered on 03/23/19at 12:40; Start 03/23/19 at 12:30; Stop 03/23/19 at 12:31; Status DC Fentanyl Citrate (Fentanyl 2ml Vial) 50 mcg 1X ONCE IVP Last administered on 03/23/19at 12:41; Start 03/23/19 at 12:30; Stop 03/23/19 at 12:31; Status DC Ondansetron HCl (Zofran) 4 mg PRN Q8HRS PRN IV NAUSEA/VOMITING Last administered on 03/23/19at 19:54; Start 03/23/19 at 13:00; Stop 03/23/19 at 22:42; Status DC Fentanyl Citrate (Fentanyl 2ml Vial) 50 mcg PRN Q1HR PRN IV PAIN; Start 03/23/19 at 13:00; Stop 03/24/19 at 12:59; Status DC Sodium Chloride 1,000 ml @ 100 mls/hr Q10H IV Last administered on 03/24/19 07:51; Start 03/23/19 at 12:58; Stop 03/24/19 at 12:57; Status DC Acetaminophen (Tylenol) 650 mg PRN Q6HRS PRN PO pain Last administered on 03/24/19 10:24; Start 03/23/19 at 19:45 Ondansetron HCl (Zofran) 4 mg PRN Q6HRS PRN IV NAUSEA/VOMITING Last administered on 03/24/19 02:27; Start 03/23/19 at 22:45 Amlodipine Besylate (Norvasc) 10 mg DAILY PO Last administered on 03/24/19 08:01; Start 03/24/19 at 09:00 Atorvastatin Calcium (Lipitor) 10 mg HS PO ; Start 03/24/19 at 21:00 Pantoprazole Sodium (PROTONIX VIAL for IV PUSH) 40 mg DAILYAC IVP Last adminis tered on 03/24/19 07:51; Start 03/23/19 at 23:00 Prochlorperazine Edisylate (Compazine) 10 mg PRN Q6HRS PRN IV NAUSEA/VOMITING Last administered on 03/24/19 05:59; Start 03/24/19 at 05:30 Active Scripts Active Reported Atorvastatin Calcium 10 Mg Tablet 10 Mg PO HS Amlodipine Besylate 10 Mg Tablet 10 Mg PO DAILY Allergies Allergies: Coded Allergies: No Known Drug Allergies (Unverified , 08/25/17) Vitals VITALS Vital Signs Date Time Temp Pulse Resp B/P (MAP) Pulse Ox O2 Delivery O2 Flow Rate FiO2 03/24/19 11:00 98.5 69 14 148/70 (96) 95 Room Air 98.5 Labs Labs Laboratory Tests Test 03/23/19 10:28 03/23/19 10:35 03/23/19 10:45 03/23/19 11:10 Urine Collection Type Unknown Urine Color Yellow Urine Clarity Clear Urine pH 7.0 Urine Specific [place] 1.015 Urine Protein Negative mg/dL (NEG-TRACE) Urine Glucose (UA) Negative mg/dL (NEG) Urine Ketones (Stick) 15 mg/dL (NEG) Urine Blood Small (NEG) Urine Nitrite Negative (NEG) Urine Bilirubin Negative (NEG) Urine Urobilinogen Dipstick 0.2 mg/dL (0.2 mg/dL) Urine Leukocyte Esterase Negative (NEG) Urine RBC Occ /HPF (0-2) Urine WBC Occ /HPF (0-4) Urine Squamous Epithelial Cells Mod /LPF Urine Bacteria 0 /HPF (0-FEW) Urine Mucus Slight /LPF Stool Occult Blood Positive (NEG) White Blood Count 4.6 x10^3/uL (4.0-11.0) Red Blood Count 4.92 x10^6/uL (3.50-5.40) Hemoglobin 14.7 g/dL (12.0-15.5) Hematocrit 43.3 % (36.0-47.0) Mean Corpuscular Volume 88 fL (79-100) Mean Corpuscular Hemoglobin 30 pg (25-35) Mean Corpuscular Hemoglobin Concent 34 g/dL (31-37) Red Cell Distribution Width 13.8 % (11.5-14.5) Platelet Count 293 x10^3/uL (140-400) Neutrophils (%) (Auto) 70 % (31-73) Lymphocytes (%) (Auto) 21 % (24-48) Monocytes (%) (Auto) 8 % (0-9) Eosinophils (%) (Auto) 0 % (0-3) Basophils (%) (Auto) 1 % (0-3) Neutrophils # (Auto) 3.2 x10^3/uL (1.8-7.7) Lymphocytes # (Auto) 1.0 x10^3/uL (1.0-4.8) Monocytes # (Auto) 0.3 x10^3/uL (0.0-1.1) Eosinophils # (Auto) 0.0 x10^3/uL (0.0-0.7) Basophils # (Auto) 0.0 x10^3/uL (0.0-0.2) Sodium Level 140 mmol/L (136-145) Potassium Level 4.4 mmol/L (3.5-5.1) Chloride Level 104 mmol/L (98-107) Carbon Dioxide Level 29 mmol/L (21-32) Anion Gap 7 (6-14) Blood Urea Nitrogen 12 mg/dL (7-20) Creatinine 0.9 mg/dL (0.6-1.0) Estimated GFR (Cockcroft-Gault) 62.3 BUN/Creatinine Ratio 13 (6-20) Glucose Level 100 mg/dL (70-99) Calcium Level 9.3 mg/dL (8.5-10.1) Total Bilirubin 0.5 mg/dL (0.2-1.0) Aspartate Amino Transf (AST/SGOT) 21 U/L (15-37) Alanine Aminotransferase (ALT/SGPT) 18 U/L (14-59) Alkaline Phosphatase 76 U/L (46-116) Troponin I Quantitative < 0.017 ng/mL (0.000-0.055) Total Protein 6.8 g/dL (6.4-8.2) Albumin 3.8 g/dL (3.4-5.0) Albumin/Globulin Ratio 1.3 (1.0-1.7) Lipase 151 U/L (73-393) Test 03/24/19 11:58 White Blood Count 5.3 x10^3/uL (4.0-11.0) Red Blood Count 4.59 x10^6/uL (3.50-5.40) Hemoglobin 13.4 g/dL (12.0-15.5) Hematocrit 40.5 % (36.0-47.0) Mean Corpuscular Volume 88 fL (79-100) Mean Corpuscular Hemoglobin 29 pg (25-35) Mean Corpuscular Hemoglobin Concent 33 g/dL (31-37) Red Cell Distribution Width 13.7 % (11.5-14.5) Platelet Count 267 x10^3/uL (140-400) Neutrophils (%) (Auto) 71 % (31-73) Lymphocytes (%) (Auto) 21 % (24-48) Monocytes (%) (Auto) 8 % (0-9) Eosinophils (%) (Auto) 0 % (0-3) Basophils (%) (Auto) 1 % (0-3) Neutrophils # (Auto) 3.7 x10^3/uL (1.8-7.7) Lymphocytes # (Auto) 1.1 x10^3/uL (1.0-4.8) Monocytes # (Auto) 0.4 x10^3/uL (0.0-1.1) Eosinophils # (Auto) 0.0 x10^3/uL (0.0-0.7) Basophils # (Auto) 0.0 x10^3/uL (0.0-0.2) Sodium Level 141 mmol/L (136-145) Potassium Level 3.9 mmol/L (3.5-5.1) Chloride Level 104 mmol/L (98-107) Carbon Dioxide Level 26 mmol/L (21-32) Anion Gap 11 (6-14) Blood Urea Nitrogen 7 mg/dL (7-20) Creatinine 0.8 mg/dL (0.6-1.0) Estimated GFR (Cockcroft-Gault) 71.3 Glucose Level 88 mg/dL (70-99) Calcium Level 9.1 mg/dL (8.5-10.1) Laboratory Tests Test 03/24/19 11:58 White Blood Count 5.3 x10^3/uL (4.0-11.0) Red Blood Count 4.59 x10^6/uL (3.50-5.40) Hemoglobin 13.4 g/dL (12.0-15.5) Hematocrit 40.5 % (36.0-47.0) Mean Corpuscular Volume 88 fL (79-100) Mean Corpuscular Hemoglobin 29 pg (25-35) Mean Corpuscular Hemoglobin Concent 33 g/dL (31-37) Red Cell Distribution Width 13.7 % (11.5-14.5) Platelet Count 267 x10^3/uL (140-400) Neutrophils (%) (Auto) 71 % (31-73) Lymphocytes (%) (Auto) 21 % (24-48) Monocytes (%) (Auto) 8 % (0-9) Eosinophils (%) (Auto) 0 % (0-3) Basophils (%) (Auto) 1 % (0-3) Neutrophils # (Auto) 3.7 x10^3/uL (1.8-7.7) Lymphocytes # (Auto) 1.1 x10^3/uL (1.0-4.8) Monocytes # (Auto) 0.4 x10^3/uL (0.0-1.1) Eosinophils # (Auto) 0.0 x10^3/uL (0.0-0.7) Basophils # (Auto) 0.0 x10^3/uL (0.0-0.2) Sodium Level 141 mmol/L (136-145) Potassium Level 3.9 mmol/L (3.5-5.1) Chloride Level 104 mmol/L (98-107) Carbon Dioxide Level 26 mmol/L (21-32) Anion Gap 11 (6-14) Blood Urea Nitrogen 7 mg/dL (7-20) Creatinine 0.8 mg/dL (0.6-1.0) Estimated GFR (Cockcroft-Gault) 71.3 Glucose Level 88 mg/dL (70-99) Calcium Level 9.1 mg/dL (8.5-10.1) Assessment/Plan Assessment/Plan N/V- intractable, with position al component, differential includes: worsening of her gastric ulcer disease, gastroparesis, chronic cholecystitis, Addisions disease, and/or increased REIMBURSEMENT ANALYST pressure Plan HIDA EF fasting cortisol level CT head/interval EGD and GES if above unrevealing Full note dictated LINDSAY JUDD MD Mar 24, 2019 13:31
[2019-03-24 15:00] VITALS: BP 130/70
--- NOTE | 2019-03-24 15:38 | CONS ---
DATE OF CONSULTATION: 03/24/2019 GI CONSULTATION REASON FOR CONSULTATION: Intractable nausea and vomiting. HISTORY OF PRESENT ILLNESS: This is a 68-year-old female with past medical history significant for depression, hyperlipidemia, hypertension, nephrolithiasis, status post tonsillectomy, tubal ligation, is admitted to [facility] with intractable nausea and vomiting. Previous imaging and endoscopy did reveal gastric ulcers. Ultrasound is unrevealing for stones. CT scan unrevealing for mass or malignancy within the intra-abdominal cavity. The patient states she has been unable to maintain her p.o. intake, has been admitted for intractable symptoms. She states there is a positional component, raising the question of possible increased intracranial pressure. No family history of gallbladder disease was encountered. A PIPIDA scan and CT scan of the head would be pursued as well as cortisol levels. PAST MEDICAL HISTORY: Gastric ulcers, depression, hyperlipidemia, hypertension, nephrolithiasis. ALLERGIES: None. MEDICATIONS: Include atorvastatin, amlodipine, pantoprazole, ondansetron. SOCIAL HISTORY: She is . Does not drink or smoke at this time. FAMILY HISTORY: Noncontributory. REVIEW OF SYSTEMS: Per records. PHYSICAL EXAMINATION: GENERAL: Reveals a thin, ill-appearing female. VITAL SIGNS: Temperature 96.5, pulse 59, respirations 14, blood pressure is 145/70. HEENT: Normocephalic, atraumatic head. Pupils and extraocular muscles are not tested. Sclerae anicteric. NECK: Supple. LUNGS: Clear. CARDIOVASCULAR: Reveals an S1, S2 without S3, S4 or appreciable murmur. ABDOMEN: Reveals a soft abdomen with epigastric tenderness to deep palpation without appreciable hepatosplenomegaly. EXTREMITIES: Reveals no cyanosis, clubbing or edema. LABORATORY STUDIES: Sodium 141, potassium 3.9, chloride 104, bicarbonate 26, BUN 7, creatinine 0.8, glucose is 88, calcium 9.1, total bilirubin 0.5, AST of 20, ALT of 16, alkaline phosphatase 76, total protein 6.5, albumin 3.5, lipase is 151. Hemoglobin is 13.4, hematocrit 46.5, white count 5.3, platelet count is 267,000. Previous imaging was unrevealing. IMPRESSION: Intractable nausea and vomiting, etiology to be determined. Differential does include gastric obstruction with healing of gastric ulcers, gastroparesis, chronic cholecystitis, Lukas's disease, increasing intracranial pressure. Therefore, we recommend a HIDA scan with ejection fraction and cortisol level, CT scan of the head, gastric emptying study and upper endoscopy, interval, if symptoms do not improve with the above workup. LINDSAY JUDD MD DR: BEATRIS/monique JOB#: [id number] / [id number]
[2019-03-24 19:00] VITALS: BP 127/57
[2019-03-24] MEDS: ATORVASTATIN CALCIUM 10 MG TABLET. PO SCH (20:43)
[2019-03-24 23:04] VITALS: BP 136/61
[2019-03-25] MEDS: ACETAMINOPHEN 325 MG TABLET. PO PRN ×3 (01:59→20:45)
[2019-03-25 03:05] VITALS: BP 132/55
[2019-03-25] MEDS: PROCHLORPERAZINE 10 MG/2 ML VIAL. IV PRN ×3 (06:33→18:41)
[2019-03-25 07:00] VITALS: BP 134/70
[2019-03-25] MEDS: PANTOPRAZOLE IV PUSH 40 MG VIAL. IVP SCH (07:30)
--- NOTE | 2019-03-25 08:34 | PDOC ---
PROGRESS NOTES History of Present Illness History of Present Illness Images Images Abdominal US - Fatty liver, hepatic cysts CT abdomen/pelvis - Heart is normal in size. No pericardial or pleural effusion. Clear lung bases. Multiple low attenuating liver lesions, the largest in segment 8 measuring 4 cm compatible with simple cysts. Spleen, gallbladder, pancreas, adrenals within normal limits. No nephrolithiasis or hydronephrosis. No free pelvic fluid or ascites. No enlarged retroperitoneal or pelvic adenopathy. No bowel obstruction. Normal appendix. Uterus is present. Urinary bladder demonstrates no radiopaque stone. No pneumoperitoneum. No suspicious bony lesion. VTE Prophylaxis Ordered VTE Prophylaxis Devices: No VTE Pharmacological Prophylaxi: Contraindicated Assessment/Plan Assessment/Plan A/P: Intractable nausea and vomiting - possibly gastroenteritis. No hematemesis. Will keep on IV anti-emetics. NPO, IVF, GI FOLLOWING Blood in stool - has been experiencing constipation, likely having diverticular bleeding, however with recent peptic ulcer diagnosis this may need further investigation Anxiety, Depression - cont meds High Cholesterol - cont statin Hypertension - cont meds PUD - cont PPI FEN - NPO PPX - SCDs FULL CODE Dispo - inpatient for nausea and vomiting HIDA SCAN Vitals Vitals Vital Signs Date Time Temp Pulse Resp B/P (MAP) Pulse Ox O2 Delivery O2 Flow Rate FiO2 03/25/19 07:00 98.3 74 18 134/70 (91) 94 Room Air 98.3 Physical Exam General: Alert, Oriented X3, Cooperative, No acute distress Lungs: Clear Abdomen: Normal bowel sounds, Soft, No hepatosplenomegaly, No masses, Other (Epigastric tender) Extremities: No clubbing, No cyanosis, No edema, Normal pulses, No tend erness/swelling Skin: No rashes, No breakdown, No significant lesion Labs LABS PQRS Compliance statement: One or more of the following individualized dose reduction techniques were utilized for this examination: 1. Automated exposure control. 2. Adjustment of the mA and/or kV according to patient size. 3. Use of iterative reconstruction technique. Indication: Abdominal pain. TECHNIQUE: CT abdomen and pelvis with IV contrast with multiplanar reformats. COMPARISON: 04/20/2018 FINDINGS: Heart is normal in size. No pericardial or pleural effusion. Clear lung bases. Multiple low attenuating liver lesions, the largest in segment 8 measuring 4 cm compatible with simple cysts. Spleen, gallbladder, pancreas, adrenals within normal limits. No nephrolithiasis or hydronephrosis. No free pelvic fluid or ascites. No enlarged retroperitoneal or pelvic adenopathy. No bowel obstruction. Normal appendix. Uterus is present. Urinary bladder demonstrates no radiopaque stone. No pneumoperitoneum. No suspicious bony lesion. IMPRESSION: No acute findings. Electronically signed by: Christiano Temple DO (03/20/2019 12:51 PM) [facility] [email or web address] DICTATED and SIGNED BY: CHRISTIANO TEMPLE DO DATE: 03/20/19 1251 Laboratory Tests Test 03/24/19 11:58 White Blood Count 5.3 x10^3/uL (4.0-11.0) Red Blood Count 4.59 x10^6/uL (3.50-5.40) Hemoglobin 13.4 g/dL (12.0-15.5) Hematocrit 40.5 % (36.0-47.0) Mean Corpuscular Volume 88 fL (79-100) Mean Corpuscular Hemoglobin 29 pg (25-35) Mean Corpuscular Hemoglobin Concent 33 g/dL (31-37) Red Cell Distribution Width 13.7 % (11.5-14.5) Platelet Count 267 x10^3/uL (140-400) Neutrophils (%) (Auto) 71 % (31-73) Lymphocytes (%) (Auto) 21 % (24-48) Monocytes (%) (Auto) 8 % (0-9) Eosinophils (%) (Auto) 0 % (0-3) Basophils (%) (Auto) 1 % (0-3) Neutrophils # (Auto) 3.7 x10^3/uL (1.8-7.7) Lymphocytes # (Auto) 1.1 x10^3/uL (1.0-4.8) Monocytes # (Auto) 0.4 x10^3/uL (0.0-1.1) Eosinophils # (Auto) 0.0 x10^3/uL (0.0-0.7) Basophils # (Auto) 0.0 x10^3/uL (0.0-0.2) Sodium Level 141 mmol/L (136-145) Potassium Level 3.9 mmol/L (3.5-5.1) Chloride Level 104 mmol/L (98-107) Carbon Dioxide Level 26 mmol/L (21-32) Anion Gap 11 (6-14) Blood Urea Nitrogen 7 mg/dL (7-20) Creatinine 0.8 mg/dL (0.6-1.0) Estimated GFR (Cockcroft-Gault) 71.3 Glucose Level 88 mg/dL (70-99) Calcium Level 9.1 mg/dL (8.5-10.1) Assessment and Plan Assessmemt and Plan Problems Medical Problems: (1) Abdominal pain Status: Acute (2) Bloody stool Status: Acute (3) Nausea & vomiting Status: Acute Comment Review of Relevant I have reviewed the following items kasey (where applicable) has been applied. Labs Laboratory Tests Test 03/23/19 10:28 03/23/19 10:35 03/23/19 10:45 03/23/19 11:10 Urine Collection Type Unknown Urine Color Yellow Urine Clarity Clear Urine pH 7.0 Urine Specific [place] 1.015 Urine Protein Negative mg/dL (NEG-TRACE) Urine Glucose (UA) Negative mg/dL (NEG) Urine Ketones (Stick) 15 mg/dL (NEG) Urine Blood Small (NEG) Urine Nitrite Negative (NEG) Urine Bilirubin Negative (NEG) Urine Urobilinogen Dipstick 0.2 mg/dL (0.2 mg/dL) Urine Leukocyte Esterase Negative (NEG) Urine RBC Occ /HPF (0-2) Urine WBC Occ /HPF (0-4) Urine Squamous Epithelial Cells Mod /LPF Urine Bacteria 0 /HPF (0-FEW) Urine Mucus Slight /LPF Stool Occult Blood Positive (NEG) White Blood Count 4.6 x10^3/uL (4.0-11.0) Red Blood Count 4.92 x10^6/uL (3.50-5.40) Hemoglobin 14.7 g/dL (12.0-15.5) Hematocrit 43.3 % (36.0-47.0) Mean Corpuscular Volume 88 fL (79-100) Mean Corpuscular Hemoglobin 30 pg (25-35) Mean Corpuscular Hemoglobin Concent 34 g/dL (31-37) Red Cell Distribution Width 13.8 % (11.5-14.5) Platelet Count 293 x10^3/uL (140-400) Neutrophils (%) (Auto) 70 % (31-73) Lymphocytes (%) (Auto) 21 % (24-48) Monocytes (%) (Auto) 8 % (0-9) Eosinophils (%) (Auto) 0 % (0-3) Basophils (%) (Auto) 1 % (0-3) Neutrophils # (Auto) 3.2 x10^3/uL (1.8-7.7) Lymphocytes # (Auto) 1.0 x10^3/uL (1.0-4.8) Monocytes # (Auto) 0.3 x10^3/uL (0.0-1.1) Eosinophils # (Auto) 0.0 x10^3/uL (0.0-0.7) Basophils # (Auto) 0.0 x10^3/uL (0.0-0.2) Sodium Level 140 mmol/L (136-145) Potassium Level 4.4 mmol/L (3.5-5.1) Chloride Level 104 mmol/L (98-107) Carbon Dioxide Level 29 mmol/L (21-32) Anion Gap 7 (6-14) Blood Urea Nitrogen 12 mg/dL (7-20) Creatinine 0.9 mg/dL (0.6-1.0) Estimated GFR (Cockcroft-Gault) 62.3 BUN/Creatinine Ratio 13 (6-20) Glucose Level 100 mg/dL (70-99) Calcium Level 9.3 mg/dL (8.5-10.1) Total Bilirubin 0.5 mg/dL (0.2-1.0) Aspartate Amino Transf (AST/SGOT) 21 U/L (15-37) Alanine Aminotransferase (ALT/SGPT) 18 U/L (14-59) Alkaline Phosphatase 76 U/L (46-116) Troponin I Quantitative < 0.017 ng/mL (0.000-0.055) Total Protein 6.8 g/dL (6.4-8.2) Albumin 3.8 g/dL (3.4-5.0) Albumin/Globulin Ratio 1.3 (1.0-1.7) Lipase 151 U/L (73-393) Test 03/24/19 11:58 White Blood Count 5.3 x10^3/uL (4.0-11.0) Red Blood Count 4.59 x10^6/uL (3.50-5.40) Hemoglobin 13.4 g/dL (12.0-15.5) Hematocrit 40.5 % (36.0-47.0) Mean Corpuscular Volume 88 fL (79-100) Mean Corpuscular Hemoglobin 29 pg (25-35) Mean Corpuscular Hemoglobin Concent 33 g/dL (31-37) Red Cell Distribution Width 13.7 % (11.5-14.5) Platelet Count 267 x10^3/uL (140-400) Neutrophils (%) (Auto) 71 % (31-73) Lymphocytes (%) (Auto) 21 % (24-48) Monocytes (%) (Auto) 8 % (0-9) Eosinophils (%) (Auto) 0 % (0-3) Basophils (%) (Auto) 1 % (0-3) Neutrophils # (Auto) 3.7 x10^3/uL (1.8-7.7) Lymphocytes # (Auto) 1.1 x10^3/uL (1.0-4.8) Monocytes # (Auto) 0.4 x10^3/uL (0.0-1.1) Eosinophils # (Auto) 0.0 x10^3/uL (0.0-0.7) Basophils # (Auto) 0.0 x10^3/uL (0.0-0.2) Sodium Level 141 mmol/L (136-145) Potassium Level 3.9 mmol/L (3.5-5.1) Chloride Level 104 mmol/L (98-107) Carbon Dioxide Level 26 mmol/L (21-32) Anion Gap 11 (6-14) Blood Urea Nitrogen 7 mg/dL (7-20) Creatinine 0.8 mg/dL (0.6-1.0) Estimated GFR (Cockcroft-Gault) 71.3 Glucose Level 88 mg/dL (70-99) Calcium Level 9.1 mg/dL (8.5-10.1) Laboratory Tests Test 03/24/19 11:58 White Blood Count 5.3 x10^3/uL (4.0-11.0) Red Blood Count 4.59 x10^6/uL (3.50-5.40) Hemoglobin 13.4 g/dL (12.0-15.5) Hematocrit 40.5 % (36.0-47.0) Mean Corpuscular Volume 88 fL (79-100) Mean Corpuscular Hemoglobin 29 pg (25-35) Mean Corpuscular Hemoglobin Concent 33 g/dL (31-37) Red Cell Distribution Width 13.7 % (11.5-14.5) Platelet Count 267 x10^3/uL (140-400) Neutrophils (%) (Auto) 71 % (31-73) Lymphocytes (%) (Auto) 21 % (24-48) Monocytes (%) (Auto) 8 % (0-9) Eosinophils (%) (Auto) 0 % (0-3) Basophils (%) (Auto) 1 % (0-3) Neutrophils # (Auto) 3.7 x10^3/uL (1.8-7.7) Lymphocytes # (Auto) 1.1 x10^3/uL (1.0-4.8) Monocytes # (Auto) 0.4 x10^3/uL (0.0-1.1) Eosinophils # (Auto) 0.0 x10^3/uL (0.0-0.7) Basophils # (Auto) 0.0 x10^3/uL (0.0-0.2) Sodium Level 141 mmol/L (136-145) Potassium Level 3.9 mmol/L (3.5-5.1) Chloride Level 104 mmol/L (98-107) Carbon Dioxide Level 26 mmol/L (21-32) Anion Gap 11 (6-14) Blood Urea Nitrogen 7 mg/dL (7-20) Creatinine 0.8 mg/dL (0.6-1.0) Estimated GFR (Cockcroft-Gault) 71.3 Glucose Level 88 mg/dL (70-99) Calcium Level 9.1 mg/dL (8.5-10.1) Medications Current Medications Sodium Chloride 1,000 ml @ 1,000 mls/hr 1X ONCE IV Last administered on 03/23/19at 10:51; Start 03/23/19 at 10:45; Stop 03/23/19 at 11:44; Status DC Ondansetron HCl (Zofran) 4 mg 1X ONCE IV Last administered on 03/23/19at 10:51; Start 03/23/19 at 10:45; Stop 03/23/19 at 10:46; Status DC Prochlorperazine Edisylate (Compazine) 10 mg 1X ONCE IV Last administered on 03/23/19 12:40; Start 03/23/19 at 12:30; Stop 03/23/19 at 12:31; Status DC Fentanyl Citrate (Fentanyl 2ml Vial) 50 mcg 1X ONCE IVP Last administered on 03/23/19 12:41; Start 03/23/19 at 12:30; Stop 03/23/19 at 12:31; Status DC Ondansetron HCl (Zofran) 4 mg PRN Q8HRS PRN IV NAUSEA/VOMITING Last administered on 03/23/19 19:54; Start 03/23/19 at 13:00; Stop 03/23/19 at 22:42; Status DC Fentanyl Citrate (Fentanyl 2ml Vial) 50 mcg PRN Q1HR PRN IV PAIN; Start 03/23/19 at 13:00; Stop 03/24/19 at 12:59; Status DC Sodium Chloride 1,000 ml @ 100 mls/hr Q10H IV Last administered on 03/24/19 07:51; Start 03/23/19 at 12:58; Stop 03/24/19 at 12:57; Status DC Acetaminophen (Tylenol) 650 mg PRN Q6HRS PRN PO pain Last administered on 03/25/19 01:59; Start 03/23/19 at 19:45 Ondansetron HCl (Zofran) 4 mg PRN Q6HRS PRN IV NAUSEA/VOMITING Last administered on 03/24/19 02:27; Start 03/23/19 at 22:45 Amlodipine Besylate (Norvasc) 10 mg DAILY PO Last administered on 03/24/19 08:01; Start 03/24/19 at 09:00 Atorvastatin Calcium (Lipitor) 10 mg HS PO Last administered on 03/24/19 20:43; Start 03/24/19 at 21:00 Pantoprazole Sodium (PROTONIX VIAL for IV PUSH) 40 mg DAILYAC IVP Last a dministered on 03/24/19 07:51; Start 03/23/19 at 23:00 Prochlorperazine Edisylate (Compazine) 10 mg PRN Q6HRS PRN IV NAUSEA/VOMITING Last administered on 03/25/19 06:33; Start 03/24/19 at 05:30 Active Scripts Active Reported Atorvastatin Calcium 10 Mg Tablet 10 Mg PO HS Amlodipine Besylate 10 Mg Tablet 10 Mg PO DAILY Vitals/I & O Vital Sign - Last 24 Hours 03/24/19 03/24/19 03/24/19 03/24/19 11:00 15:00 19:00 19:59 Temp 98.5 97.9 98.6 98.5 97.9 98.6 Pulse 69 71 73 Resp 14 16 18 B/P (MAP) 148/70 (96) 130/70 (90) 127/57 (80) Pulse Ox 95 95 94 O2 Delivery Room Air Room Air Room Air Room Air 03/24/19 03/25/19 03/25/19 23:04 03:05 07:00 Temp 98.7 98.2 98.3 98.7 98.2 98.3 Pulse 69 61 74 Resp 18 16 18 B/P (MAP) 136/61 (86) 132/55 (80) 134/70 (91) Pulse Ox 95 94 94 O2 Delivery Room Air Room Air Room Air Intake and Output 03/24/19 03/24/19 03/25/19 15:00 23:00 07:00 Intake Total 0 ml 240 ml Balance 0 ml 240 ml MAGO HUMPHREYS MD Mar 25, 2019 08:34
[2019-03-25] MEDS: amLODIPine BESYLATE 10 MG TABLET PO SCH ×2 (08:43→12:37)
[2019-03-25] MEDS ORDERED: SINCALIDE 1.63 MCG in IV NORMAL SALINE 50ML 30 ML IV ONE (10:30)
[2019-03-25 11:30] VITALS: BP 132/75
[2019-03-25] MEDS ORDERED: LIDO:MAALOX 1:1 20 ML SINGLE DOSE. PO PRN (14:00)
--- NOTE | 2019-03-25 14:03 | PDOC ---
G I PROGRESS NOTE Subjective AM nausea; otherwise OK. Physical Exam Lungs clear. RRR Abdomen soft, not tender. Review of Relevant I have reviewed the following items kasey (where applicable) has been applied. Labs Laboratory Tests Test 03/24/19 11:58 White Blood Count 5.3 x10^3/uL (4.0-11.0) Red Blood Count 4.59 x10^6/uL (3.50-5.40) Hemoglobin 13.4 g/dL (12.0-15.5) Hematocrit 40.5 % (36.0-47.0) Mean Corpuscular Volume 88 fL (79-100) Mean Corpuscular Hemoglobin 29 pg (25-35) Mean Corpuscular Hemoglobin Concent 33 g/dL (31-37) Red Cell Distribution Width 13.7 % (11.5-14.5) Platelet Count 267 x10^3/uL (140-400) Neutrophils (%) (Auto) 71 % (31-73) Lymphocytes (%) (Auto) 21 % (24-48) Monocytes (%) (Auto) 8 % (0-9) Eosinophils (%) (Auto) 0 % (0-3) Basophils (%) (Auto) 1 % (0-3) Neutrophils # (Auto) 3.7 x10^3/uL (1.8-7.7) Lymphocytes # (Auto) 1.1 x10^3/uL (1.0-4.8) Monocytes # (Auto) 0.4 x10^3/uL (0.0-1.1) Eosinophils # (Auto) 0.0 x10^3/uL (0.0-0.7) Basophils # (Auto) 0.0 x10^3/uL (0.0-0.2) Sodium Level 141 mmol/L (136-145) Potassium Level 3.9 mmol/L (3.5-5.1) Chloride Level 104 mmol/L (98-107) Carbon Dioxide Level 26 mmol/L (21-32) Anion Gap 11 (6-14) Blood Urea Nitrogen 7 mg/dL (7-20) Creatinine 0.8 mg/dL (0.6-1.0) Estimated GFR (Cockcroft-Gault) 71.3 Glucose Level 88 mg/dL (70-99) Calcium Level 9.1 mg/dL (8.5-10.1) Vitals/I & O Vital Sign - Last 24 Hours 03/24/19 03/24/19 03/24/19 03/24/19 15:00 19:00 19:59 23:04 Temp 97.9 98.6 98.7 97.9 98.6 98.7 Pulse 71 73 69 Resp 16 18 18 B/P (MAP) 130/70 (90) 127/57 (80) 136/61 (86) Pulse Ox 95 94 95 O2 Delivery Room Air Room Air Room Air Room Air 03/25/19 03/25/19 03/25/19 03/25/19 03:05 07:00 08:00 11:30 Temp 98.2 98.3 98.2 98.2 98.3 98.2 Pulse 61 74 75 Resp 16 18 14 B/P (MAP) 132/55 (80) 134/70 (91) 132/75 (94) Pulse Ox 94 94 94 O2 Delivery Room Air Room Air Room Air Room Air 03/25/19 12:37 Pulse 75 B/P (MAP) 132/75 Intake and Output 03/24/19 03/24/19 03/25/19 15:00 23:00 07:00 Intake Total 0 ml 240 ml Balance 0 ml 240 ml Images GBEF 86% Problem List Problems Medical Problems: (1) Abdominal pain Status: Acute (2) Bloody stool Status: Acute (3) Nausea & vomiting Status: Acute Assessment Atypical GERD? Bleeding likely benign local anal source a la hemorrhoids. Plan of Care Note Po PPI BID. try diet GI cocktail prn. SARAH DOCKERY MD Mar 25, 2019 14:03
[2019-03-25 15:00] VITALS: BP 124/65
--- NOTE | 2019-03-25 15:05 | RAD ---
HEPATOBILIARY SCAN WITH EJECTION FRACTION History: Abdominal pain Procedure: Serial static images are obtained of the liver and biliary system in the frontal projection following IV administration of 5.5 mCi of Technetium 99m Choletec. After filling of the gallbladder, 1.6 mcg of Sincalide were infused over 30 minutes and dynamic imaging continued over this period. The gallbladder ejection fraction was calculated. Findings: There is prompt hepatic clearance of tracer from the blood pool. There is homogeneous distribution throughout the liver. There is normal filling of the gallbladder and normal emptying into the biliary system and small bowel. The gallbladder ejection fraction measures 86% (normal gallbladder EF is 35% or greater). IMPRESSION: 1. The cystic duct and common bile duct are patent. Negative for acute cholecystitis. 2. The gallbladder ejection fraction is normal Electronically signed by: Marco Antonio Angeles MD (03/25/2019 3:02 PM) [facility]
[2019-03-25] MEDS: PANTOPRAZOLE 40 MG TABLET.DR. PO SCH (16:58)
[2019-03-25 19:00] VITALS: BP 113/53
[2019-03-25] MEDS: ATORVASTATIN CALCIUM 10 MG TABLET. PO SCH (20:45)
[2019-03-25 23:00] VITALS: BP 125/66
[2019-03-26 03:00] VITALS: BP 118/65
[2019-03-26] MEDS: PROCHLORPERAZINE 10 MG/2 ML VIAL. IV PRN ×2 (04:09→11:40)
[2019-03-26] MEDS: ACETAMINOPHEN 325 MG TABLET. PO PRN ×2 (04:15→11:40)
[2019-03-26 05:29] LABS: BASO % 1 % (0-3); EOS # 0.1 x10^3/uL (0.0-0.7); EOS % 2 % (0-3); HEMATOCRIT 41.6 % (36.0-47.0); HEMOGLOBIN 13.8 g/dL (12.0-15.5); LYMPH # 1.2 x10^3/uL (1.0-4.8); LYMPH % 24 % (24-48); MEAN CORPUSCULAR HEMOGLOBIN 30 pg (25-35); MEAN CORPUSCULAR HGB CONC 33 g/dL (31-37); MEAN CORPUSCULAR VOLUME 89 fL (79-100); MONO # 0.5 x10^3/uL (0.0-1.1); MONO % 9 % (0-9); NEUT # 3.2 x10^3/uL (1.8-7.7); NEUT % 64 % (31-73); PLATELET COUNT 265 x10^3/uL (140-400); RED BLOOD COUNT 4.68 x10^6/uL (3.50-5.40); RED CELL DISTRIBUTION WIDTH 13.5 % (11.5-14.5)
[2019-03-26 05:39] LABS: ALBUMIN 3.5 g/dL (3.4-5.0); ALBUMIN/GLOBULIN RATIO 1.1 (1.0-1.7); CALCIUM 9.1 mg/dL (8.5-10.1); CREATININE 0.8 mg/dL (0.6-1.0); GFR 71.3; POTASSIUM 3.9 mmol/L (3.5-5.1); TOTAL BILIRUBIN 0.6 mg/dL (0.2-1.0); TOTAL PROTEIN 6.7 g/dL (6.4-8.2)
[2019-03-26 07:00] VITALS: BP 134/65
--- NOTE | 2019-03-26 08:46 | PDOC ---
PROGRESS NOTES History of Present Illness History of Present Illness Images Images Abdominal US - Fatty liver, hepatic cysts CT abdomen/pelvis - Heart is normal in size. No pericardial or pleural effusion. Clear lung bases. Multiple low attenuating liver lesions, the largest in segment 8 measuring 4 cm compatible with simple cysts. Spleen, gallbladder, pancreas, adrenals within normal limits. No nephrolithiasis or hydronephrosis. No free pelvic fluid or ascites. No enlarged retroperitoneal or pelvic adenopathy. No bowel obstruction. Normal appendix. Uterus is present. Urinary bladder demonstrates no radiopaque stone. No pneumoperitoneum. No suspicious bony lesion. VTE Prophylaxis Ordered VTE Prophylaxis Devices: No VTE Pharmacological Prophylaxi: Contraindicated Assessment/Plan Assessment/Plan A/P: Intractable nausea and vomiting - possibly gastroenteritis. No hematemesis. Will keep on IV anti-emetics. NPO, IVF, GI FOLLOWING Blood in stool - has been experiencing constipation, likely having diverticular bleeding, however with recent peptic ulcer diagnosis this may need further investigation Anxiety, Depression - cont meds High Cholesterol - cont statin Hypertension - cont meds PUD - cont PPI FEN - SOFT DIET PPX - SCDs FULL CODE Dispo - inpatient for nausea and vomiting HIDA SCAN The cystic duct and common bile duct are patent. Negative for acute cholecystitis. The gallbladder ejection fraction is normal D/C TODAY 03/26 ED SOFT DIET, SEE gi one week Vitals Vitals Vital Signs Date Time Temp Pulse Resp B/P (MAP) Pulse Ox O2 Delivery O2 Flow Rate FiO2 03/26/19 07:00 97.7 71 17 134/65 (88) 95 Room Air 97.7 Physical Exam General: Alert, Oriented X3, Cooperative, No acute distress Heart: Regular rate, Normal S1 Lungs: Clear Abdomen: Normal bowel sounds, Soft, No hepatosplenomegaly, No masses, Other (Epigastric tender) Extremities: No clubbing, No cyanosis, No edema, Normal pulses, No tenderness/swelling Skin: No rashes, No breakdown, No significant lesion Labs LABS HEPATOBILIARY SCAN WITH EJECTION FRACTION History: Abdominal pain Procedure: Serial static images are obtained of the liver and biliary system in the frontal projection following IV administration of 5.5 mCi of Technetium 99m Choletec. After filling of the gallbladder, 1.6 mcg of Sincalide were infused over 30 minutes and dynamic imaging continued over this period. The gallbladder ejection fraction was calculated. Findings: There is prompt hepatic clearance of tracer from the blood pool. There is homogeneous distribution throughout the liver. There is normal filling of the gallbladder and normal emptying into the biliary system and small bowel. The gallbladder ejection fraction measures 86% (normal gallbladder EF is 35% or greater). IMPRESSION: 1. The cystic duct and common bile duct are patent. Negative for acute cholecystitis. 2. The gallbladder ejection fraction is normal Electronically signed by: Marco Antonio Angeles MD (03/25/2019 3:02 PM) [facility] Laboratory Tests Test 03/26/19 04:45 White Blood Count 5.0 x10^3/uL (4.0-11.0) Red Blood Count 4.68 x10^6/uL (3.50-5.40) Hemoglobin 13.8 g/dL (12.0-15.5) Hematocrit 41.6 % (36.0-47.0) Mean Corpuscular Volume 89 fL (79-100) Mean Corpuscular Hemoglobin 30 pg (25-35) Mean Corpuscular Hemoglobin Concent 33 g/dL (31-37) Red Cell Distribution Width 13.5 % (11.5-14.5) Platelet Count 265 x10^3/uL (140-400) Neutrophils (%) (Auto) 64 % (31-73) Lymphocytes (%) (Auto) 24 % (24-48) Monocytes (%) (Auto) 9 % (0-9) Eosinophils (%) (Auto) 2 % (0-3) Basophils (%) (Auto) 1 % (0-3) Neutrophils # (Auto) 3.2 x10^3/uL (1.8-7.7) Lymphocytes # (Auto) 1.2 x10^3/uL (1.0-4.8) Monocytes # (Auto) 0.5 x10^3/uL (0.0-1.1) Eosinophils # (Auto) 0.1 x10^3/uL (0.0-0.7) Basophils # (Auto) 0.0 x10^3/uL (0.0-0.2) Sodium Level 139 mmol/L (136-145) Potassium Level 3.9 mmol/L (3.5-5.1) Chloride Level 104 mmol/L (98-107) Carbon Dioxide Level 27 mmol/L (21-32) Anion Gap 8 (6-14) Blood Urea Nitrogen 13 mg/dL (7-20) Creatinine 0.8 mg/dL (0.6-1.0) Estimated GFR (Cockcroft-Gault) 71.3 BUN/Creatinine Ratio 16 (6-20) Glucose Level 98 mg/dL (70-99) Calcium Level 9.1 mg/dL (8.5-10.1) Total Bilirubin 0.6 mg/dL (0.2-1.0) Aspartate Amino Transf (AST/SGOT) 16 U/L (15-37) Alanine Aminotransferase (ALT/SGPT) 11 U/L (14-59) Alkaline Phosphatase 75 U/L (46-116) Total Protein 6.7 g/dL (6.4-8.2) Albumin 3.5 g/dL (3.4-5.0) Albumin/Globulin Ratio 1.1 (1.0-1.7) Assessment and Plan Assessmemt and Plan Problems Medical Problems: (1) Abdominal pain Status: Acute (2) Bloody stool Status: Acute (3) Nausea & vomiting Status: Acute Comment Review of Relevant I have reviewed the following items kasey (where applicable) has been applied. Labs Laboratory Tests Test 03/24/19 11:58 03/26/19 04:45 White Blood Count 5.3 x10^3/uL (4.0-11.0) 5.0 x10^3/uL (4.0-11.0) Red Blood Count 4.59 x10^6/uL (3.50-5.40) 4.68 x10^6/uL (3.50-5.40) Hemoglobin 13.4 g/dL (12.0-15.5) 13.8 g/dL (12.0-15.5) Hematocrit 40.5 % (36.0-47.0) 41.6 % (36.0-47.0) Mean Corpuscular Volume 88 fL (79-100) 89 fL (79-100) Mean Corpuscular Hemoglobin 29 pg (25-35) 30 pg (25-35) Mean Corpuscular Hemoglobin Concent 33 g/dL (31-37) 33 g/dL (31-37) Red Cell Distribution Width 13.7 % (11.5-14.5) 13.5 % (11.5-14.5) Platelet Count 267 x10^3/uL (140-400) 265 x10^3/uL (140-400) Neutrophils (%) (Auto) 71 % (31-73) 64 % (31-73) Lymphocytes (%) (Auto) 21 % (24-48) 24 % (24-48) Monocytes (%) (Auto) 8 % (0-9) 9 % (0-9) Eosinophils (%) (Auto) 0 % (0-3) 2 % (0-3) Basophils (%) (Auto) 1 % (0-3) 1 % (0-3) Neutrophils # (Auto) 3.7 x10^3/uL (1.8-7.7) 3.2 x10^3/uL (1.8-7.7) Lymphocytes # (Auto) 1.1 x10^3/uL (1.0-4.8) 1.2 x10^3/uL (1.0-4.8) Monocytes # (Auto) 0.4 x10^3/uL (0.0-1.1) 0.5 x10^3/uL (0.0-1.1) Eosinophils # (Auto) 0.0 x10^3/uL (0.0-0.7) 0.1 x10^3/uL (0.0-0.7) Basophils # (Auto) 0.0 x10^3/uL (0.0-0.2) 0.0 x10^3/uL (0.0-0.2) Sodium Level 141 mmol/L (136-145) 139 mmol/L (136-145) Potassium Level 3.9 mmol/L (3.5-5.1) 3.9 mmol/L (3.5-5.1) Chloride Level 104 mmol/L (98-107) 104 mmol/L (98-107) Carbon Dioxide Level 26 mmol/L (21-32) 27 mmol/L (21-32) Anion Gap 11 (6-14) 8 (6-14) Blood Urea Nitrogen 7 mg/dL (7-20) 13 mg/dL (7-20) Creatinine 0.8 mg/dL (0.6-1.0) 0.8 mg/dL (0.6-1.0) Estimated GFR (Cockcroft-Gault) 71.3 71.3 Glucose Level 88 mg/dL (70-99) 98 mg/dL (70-99) Calcium Level 9.1 mg/dL (8.5-10.1) 9.1 mg/dL (8.5-10.1) BUN/Creatinine Ratio 16 (6-20) Total Bilirubin 0.6 mg/dL (0.2-1.0) Aspartate Amino Transf (AST/SGOT) 16 U/L (15-37) Alanine Aminotransferase (ALT/SGPT) 11 U/L (14-59) Alkaline Phosphatase 75 U/L (46-116) Total Protein 6.7 g/dL (6.4-8.2) Albumin 3.5 g/dL (3.4-5.0) Albumin/Globulin Ratio 1.1 (1.0-1.7) Laboratory Tests Test 03/26/19 04:45 White Blood Count 5.0 x10^3/uL (4.0-11.0) Red Blood Count 4.68 x10^6/uL (3.50-5.40) Hemoglobin 13.8 g/dL (12.0-15.5) Hematocrit 41.6 % (36.0-47.0) Mean Corpuscular Volume 89 fL (79-100) Mean Corpuscular Hemoglobin 30 pg (25-35) Mean Corpuscular Hemoglobin Concent 33 g/dL (31-37) Red Cell Distribution Width 13.5 % (11.5-14.5) Platelet Count 265 x10^3/uL (140-400) Neutrophils (%) (Auto) 64 % (31-73) Lymphocytes (%) (Auto) 24 % (24-48) Monocytes (%) (Auto) 9 % (0-9) Eosinophils (%) (Auto) 2 % (0-3) Basophils (%) (Auto) 1 % (0-3) Neutrophils # (Auto) 3.2 x10^3/uL (1.8-7.7) Lymphocytes # (Auto) 1.2 x10^3/uL (1.0-4.8) Monocytes # (Auto) 0.5 x10^3/uL (0.0-1.1) Eosinophils # (Auto) 0.1 x10^3/uL (0.0-0.7) Basophils # (Auto) 0.0 x10^3/uL (0.0-0.2) Sodium Level 139 mmol/L (136-145) Potassium Level 3.9 mmol/L (3.5-5.1) Chloride Level 104 mmol/L (98-107) Carbon Dioxide Level 27 mmol/L (21-32) Anion Gap 8 (6-14) Blood Urea Nitrogen 13 mg/dL (7-20) Creatinine 0.8 mg/dL (0.6-1.0) Estimated GFR (Cockcroft-Gault) 71.3 BUN/Creatinine Ratio 16 (6-20) Glucose Level 98 mg/dL (70-99) Calcium Level 9.1 mg/dL (8.5-10.1) Total Bilirubin 0.6 mg/dL (0.2-1.0) Aspartate Amino Transf (AST/SGOT) 16 U/L (15-37) Alanine Aminotransferase (ALT/SGPT) 11 U/L (14-59) Alkaline Phosphatase 75 U/L (46-116) Total Protein 6.7 g/dL (6.4-8.2) Albumin 3.5 g/dL (3.4-5.0) Albumin/Globulin Ratio 1.1 (1.0-1.7) Medications Current Medications Sodium Chloride 1,000 ml @ 1,000 mls/hr 1X ONCE IV Last administered on 03/23/19at 10:51; Start 03/23/19 at 10:45; Stop 03/23/19 at 11:44; Status DC Ondansetron HCl (Zofran) 4 mg 1X ONCE IV Last administered on 03/23/19at 10:51; Start 03/23/19 at 10:45; Stop 03/23/19 at 10:46; Status DC Prochlorperazine Edisylate (Compazine) 10 mg 1X ONCE IV Last administered on 03/23/19at 12:40; Start 03/23/19 at 12:30; Stop 03/23/19 at 12:31; Status DC Fentanyl Citrate (Fentanyl 2ml Vial) 50 mcg 1X ONCE IVP Last administered on 03/23/19at 12:41; Start 03/23/19 at 12:30; Stop 03/23/19 at 12:31; Status DC Ondansetron HCl (Zofran) 4 mg PRN Q8HRS PRN IV NAUSEA/VOMITING Last administered on 03/23/19 19:54; Start 03/23/19 at 13:00; Stop 03/23/19 at 22:42; Status DC Fentanyl Citrate (Fentanyl 2ml Vial) 50 mcg PRN Q1HR PRN IV PAIN; Start 03/23/19 at 13:00; Stop 03/24/19 at 12:59; Status DC Sodium Chloride 1,000 ml @ 100 mls/hr Q10H IV Last administered on 03/24/19 07:51; Start 03/23/19 at 12:58; Stop 03/24/19 at 12:57; Status DC Acetaminophen (Tylenol) 650 mg PRN Q6HRS PRN PO pain Last administered on 03/26/19 04:15; Start 03/23/19 at 19:45 Ondansetron HCl (Zofran) 4 mg PRN Q6HRS PRN IV NAUSEA/VOMITING Last administered on 03/24/19 02:27; Start 03/23/19 at 22:45 Amlodipine Besylate (Norvasc) 10 mg DAILY PO Last administered on 03/25/19 12:37; Start 03/24/19 at 09:00 Atorvastatin Calcium (Lipitor) 10 mg HS PO Last administered on 03/25/19 20:45; Start 03/24/19 at 21:00 Pantoprazole Sodium (PROTONIX VIAL for IV PUSH) 40 mg DAILYAC IVP Last administered on 03/24/19 07:51; Start 03/23/19 at 23:00; Stop 03/25/19 at 14:00; Status DC Prochlorperazine Edisylate (Compazine) 10 mg PRN Q6HRS PRN IV NAUSEA/VOMITING Last administered on 03/26/19 04:09; Start 03/24/19 at 05:30 Sincalide 1.63 mcg/Sodium Chloride 30 ml @ 120 mls/hr 1X ONCE IV Last administered on 03/25/19 10:30; Start 03/25/19 at 10:30; Stop 03/25/19 at 10:44; Status DC Pantoprazole Sodium (Protonix) 40 mg BIDAC PO Last administered on 11/30/19at 16:58; Start 03/25/19 at 16:30 Multi-Ingredient Mouthwash/Gargle (Gi Cocktail) 20 ml PRN QID PRN PO DYSPEPSIA; Start 03/25/19 at 14:00 Active Scripts Active Reported Atorvastatin Calcium 10 Mg Tablet 10 Mg PO HS Amlodipine Besylate 10 Mg Tablet 10 Mg PO DAILY Vitals/I & O Vital Sign - Last 24 Hours 03/25/19 03/25/19 03/25/19 03/25/19 11:30 12:37 15:00 19:00 Temp 98.2 98.0 98.0 98.2 98.0 98.0 Pulse 75 75 78 66 Resp 14 16 16 B/P (MAP) 132/75 (94) 132/75 124/65 (84) 113/53 (73) Pulse Ox 94 93 91 O2 Delivery Room Air Room Air 03/25/19 03/25/19 03/26/19 03/26/19 20:00 23:00 03:00 07:00 Temp 98.2 97.8 97.7 98.2 97.8 97.7 Pulse 80 61 71 Resp 16 16 17 B/P (MAP) 125/66 (85) 118/65 (82) 134/65 (88) Pulse Ox 93 94 95 O2 Delivery Room Air Room Air Room Air Intake and Output 03/25/19 03/25/19 03/26/19 15:00 23:00 07:00 Intake Total 100 ml Balance 100 ml MAGO HUMPHREYS MD Mar 26, 2019 08:46
[2019-03-26] MEDS: PANTOPRAZOLE 40 MG TABLET.DR. PO SCH (08:54)
[2019-03-26] MEDS: amLODIPine BESYLATE 10 MG TABLET PO SCH (08:54)
[2019-03-26 11:04] VITALS: BP 137/68
--- NOTE | 2019-03-26 11:25 | PDOC3 ---
Discharge Summary Date of Admission: Mar 23, 2019 Date of Discharge: Mar 26, 2019 Follow-Up: 3-5 days Admitting Diagnosis comment: VTE Prophylaxis Ordered VTE Prophylaxis Devices: No VTE Pharmacological Prophylaxi: Contraindicated discharge dx Assessment/Plan A/P: Intractable nausea and vomiting - possibly gastroenteritis. No hematemesis. GI FOLLOWING Blood in stool - has been experiencing constipation, likely having diverticular bleeding, however with recent peptic ulcer diagnosis this may need further investigation Anxiety, Depression - cont meds High Cholesterol - cont statin Hypertension - cont meds PUD - cont PPI FEN - SOFT DIET PPX - SCDs FULL CODE Dispo - inpatient for nausea and vomiting HIDA SCAN The cystic duct and common bile duct are patent. Negative for acute cholecystitis. The gallbladder ejection fraction is normal D/C TODAY 03/26 ED SOFT DIET, SEE gi one week if not improved Vitals Vitals Vital Signs Date Time Temp Pulse Resp B/P (MAP) Pulse Ox O2 Delivery O2 Flow Rate FiO2 03/26/19 07:00 97.7 71 17 134/65 (88) 95 Room Air 97.7 Physical Exam General: Alert, Oriented X3, Cooperative, No acute distress Heart: Regular rate, Normal S1 Lungs: Clear Abdomen: Normal bowel sounds, Soft, No hepatosplenomegaly, No masses, Other (Epigastric tender) Extremities: No clubbing, No cyanosis, No edema, Normal pulses, No tenderness/swelling Skin: No rashes, No breakdown, No significant lesion Labs LABS HEPATOBILIARY SCAN WITH EJECTION FRACTION History: Abdominal pain Procedure: Serial static images are obtained of the liver and biliary system in the frontal projection following IV administration of 5.5 mCi of Technetium 99m Choletec. After filling of the gallbladder, 1.6 mcg of Sincalide were infused over 30 minutes and dynamic imaging continued over this period. The gallbladder ejection fraction was calculated. Findings: There is prompt hepatic clearance of tracer from the blood pool. There is homogeneous distribution throughout the liver. There is normal filling of the gallbladder and normal emptying into the biliary system and small bowel. The gallbladder ejection fraction measures 86% (normal gallbladder EF is 35% or greater). IMPRESSION: 1. The cystic duct and common bile duct are patent. Negative for acute cholecystitis. 2. The gallbladder ejection fraction is normal Electronically signed by: Marco Antonio Angeles MD (03/25/2019 3:02 PM) [facility] FINAL DIAGNOSIS Problems Medical Problems: (1) Abdominal pain Status: Acute (2) Bloody stool Status: Acute (3) Nausea & vomiting Status: Acute Brief Hospital Course Ms. Liz is a 68 old [sex] who presented with [intractable vomiting ] CONDITION AT DISCHARGE: Improved Discharge Medications Current Medications Sodium Chloride 1,000 ml @ 1,000 mls/hr 1X ONCE IV Last administered on 03/23/19at 10:51; Start 03/23/19 at 10:45; Stop 03/23/19 at 11:44; Status DC Ondansetron HCl (Zofran) 4 mg 1X ONCE IV Last administered on 03/23/19at 10:51; Start 03/23/19 at 10:45; Stop 03/23/19 at 10:46; Status DC Prochlorperazine Edisylate (Compazine) 10 mg 1X ONCE IV Last administered on 03/23/19at 12:40; Start 03/23/19 at 12:30; Stop 03/23/19 at 12:31; Status DC Fentanyl Citrate (Fentanyl 2ml Vial) 50 mcg 1X ONCE IVP Last administered on 03/23/19at 12:41; Start 03/23/19 at 12:30; Stop 03/23/19 at 12:31; Status DC Ondansetron HCl (Zofran) 4 mg PRN Q8HRS PRN IV NAUSEA/VOMITING Last administered on 03/23/19at 19:54; Start 03/23/19 at 13:00; Stop 03/23/19 at 22:42; Status DC Fentanyl Citrate (Fentanyl 2ml Vial) 50 mcg PRN Q1HR PRN IV PAIN; Start 03/23/19 at 13:00; Stop 03/24/19 at 12:59; Status DC Sodium Chloride 1,000 ml @ 100 mls/hr Q10H IV Last administered on 03/24/19at 07:51; Start 03/23/19 at 12:58; Stop 03/24/19 at 12:57; Status DC Acetaminophen (Tylenol) 650 mg PRN Q6HRS PRN PO pain Last administered on 03/26/19at 04:15; Start 03/23/19 at 19:45 Ondansetron HCl (Zofran) 4 mg PRN Q6HRS PRN IV NAUSEA/VOMITING Last administered on 03/24/19 02:27; Start 03/23/19 at 22:45 Amlodipine Besylate (Norvasc) 10 mg DAILY PO Last administered on 03/26/19 08:54; Start 03/24/19 at 09:00 Atorvastatin Calcium (Lipitor) 10 mg HS PO Last administered on 03/25/19at 20:45; Start 03/24/19 at 21:00 Pantoprazole Sodium (PROTONIX VIAL for IV PUSH) 40 mg DAILYAC IVP Last administered on 03/24/19 07:51; Start 03/23/19 at 23:00; Stop 03/25/19 at 14:00; Status DC Prochlorperazine Edisylate (Compazine) 10 mg PRN Q6HRS PRN IV NAUSEA/VOMITING Last administered on 03/26/19 04:09; Start 03/24/19 at 05:30 Sincalide 1.63 mcg/Sodium Chloride 30 ml @ 120 mls/hr 1X ONCE IV Last administered on 03/25/19at 10:30; Start 03/25/19 at 10:30; Stop 03/25/19 at 10:44; Status DC Pantoprazole Sodium (Protonix) 40 mg BIDAC PO Last administered on 03/26/19 08:54; Start 03/25/19 at 16:30 Multi-Ingredient Mouthwash/Gargle (Gi Cocktail) 20 ml PRN QID PRN PO DYSPEPSIA; Start 03/25/19 at 14:00 Active Scripts Active Reported Atorvastatin Calcium 10 Mg Tablet 10 Mg PO HS Amlodipine Besylate 10 Mg Tablet 10 Mg PO DAILY Vital Signs Vital Signs Date Time Temp Pulse Resp B/P (MAP) Pulse Ox O2 Delivery O2 Flow Rate FiO2 03/26/19 11:04 98.2 73 17 137/68 (91) 94 Room Air 98.2 Labs Laboratory Tests Test 03/24/19 11:58 03/26/19 04:45 White Blood Count 5.3 x10^3/uL (4.0-11.0) 5.0 x10^3/uL (4.0-11.0) Red Blood Count 4.59 x10^6/uL (3.50-5.40) 4.68 x10^6/uL (3.50-5.40) Hemoglobin 13.4 g/dL (12.0-15.5) 13.8 g/dL (12.0-15.5) Hematocrit 40.5 % (36.0-47.0) 41.6 % (36.0-47.0) Mean Corpuscular Volume 88 fL (79-100) 89 fL (79-100) Mean Corpuscular Hemoglobin 29 pg (25-35) 30 pg (25-35) Mean Corpuscular Hemoglobin Concent 33 g/dL (31-37) 33 g/dL (31-37) Red Cell Distribution Width 13.7 % (11.5-14.5) 13.5 % (11.5-14.5) Platelet Count 267 x10^3/uL (140-400) 265 x10^3/uL (140-400) Neutrophils (%) (Auto) 71 % (31-73) 64 % (31-73) Lymphocytes (%) (Auto) 21 % (24-48) 24 % (24-48) Monocytes (%) (Auto) 8 % (0-9) 9 % (0-9) Eosinophils (%) (Auto) 0 % (0-3) 2 % (0-3) Basophils (%) (Auto) 1 % (0-3) 1 % (0-3) Neutrophils # (Auto) 3.7 x10^3/uL (1.8-7.7) 3.2 x10^3/uL (1.8-7.7) Lymphocytes # (Auto) 1.1 x10^3/uL (1.0-4.8) 1.2 x10^3/uL (1.0-4.8) Monocytes # (Auto) 0.4 x10^3/uL (0.0-1.1) 0.5 x10^3/uL (0.0-1.1) Eosinophils # (Auto) 0.0 x10^3/uL (0.0-0.7) 0.1 x10^3/uL (0.0-0.7) Basophils # (Auto) 0.0 x10^3/uL (0.0-0.2) 0.0 x10^3/uL (0.0-0.2) Sodium Level 141 mmol/L (136-145) 139 mmol/L (136-145) Potassium Level 3.9 mmol/L (3.5-5.1) 3.9 mmol/L (3.5-5.1) Chloride Level 104 mmol/L (98-107) 104 mmol/L (98-107) Carbon Dioxide Level 26 mmol/L (21-32) 27 mmol/L (21-32) Anion Gap 11 (6-14) 8 (6-14) Blood Urea Nitrogen 7 mg/dL (7-20) 13 mg/dL (7-20) Creatinine 0.8 mg/dL (0.6-1.0) 0.8 mg/dL (0.6-1.0) Estimated GFR (Cockcroft-Gault) 71.3 71.3 Glucose Level 88 mg/dL (70-99) 98 mg/dL (70-99) Calcium Level 9.1 mg/dL (8.5-10.1) 9.1 mg/dL (8.5-10.1) BUN/Creatinine Ratio 16 (6-20) Total Bilirubin 0.6 mg/dL (0.2-1.0) Aspartate Amino Transf (AST/SGOT) 16 U/L (15-37) Alanine Aminotransferase (ALT/SGPT) 11 U/L (14-59) Alkaline Phosphatase 75 U/L (46-116) Total Protein 6.7 g/dL (6.4-8.2) Albumin 3.5 g/dL (3.4-5.0) Albumin/Globulin Ratio 1.1 (1.0-1.7) Laboratory Tests Test 03/26/19 04:45 White Blood Count 5.0 x10^3/uL (4.0-11.0) Red Blood Count 4.68 x10^6/uL (3.50-5.40) Hemoglobin 13.8 g/dL (12.0-15.5) Hematocrit 41.6 % (36.0-47.0) Mean Corpuscular Volume 89 fL (79-100) Mean Corpuscular Hemoglobin 30 pg (25-35) Mean Corpuscular Hemoglobin Concent 33 g/dL (31-37) Red Cell Distribution Width 13.5 % (11.5-14.5) Platelet Count 265 x10^3/uL (140-400) Neutrophils (%) (Auto) 64 % (31-73) Lymphocytes (%) (Auto) 24 % (24-48) Monocytes (%) (Auto) 9 % (0-9) Eosinophils (%) (Auto) 2 % (0-3) Basophils (%) (Auto) 1 % (0-3) Neutrophils # (Auto) 3.2 x10^3/uL (1.8-7.7) Lymphocytes # (Auto) 1.2 x10^3/uL (1.0-4.8) Monocytes # (Auto) 0.5 x10^3/uL (0.0-1.1) Eosinophils # (Auto) 0.1 x10^3/uL (0.0-0.7) Basophils # (Auto) 0.0 x10^3/uL (0.0-0.2) Sodium Level 139 mmol/L (136-145) Potassium Level 3.9 mmol/L (3.5-5.1) Chloride Level 104 mmol/L (98-107) Carbon Dioxide Level 27 mmol/L (21-32) Anion Gap 8 (6-14) Blood Urea Nitrogen 13 mg/dL (7-20) Creatinine 0.8 mg/dL (0.6-1.0) Estimated GFR (Cockcroft-Gault) 71.3 BUN/Creatinine Ratio 16 (6-20) Glucose Level 98 mg/dL (70-99) Calcium Level 9.1 mg/dL (8.5-10.1) Total Bilirubin 0.6 mg/dL (0.2-1.0) Aspartate Amino Transf (AST/SGOT) 16 U/L (15-37) Alanine Aminotransferase (ALT/SGPT) 11 U/L (14-59) Alkaline Phosphatase 75 U/L (46-116) Total Protein 6.7 g/dL (6.4-8.2) Albumin 3.5 g/dL (3.4-5.0) Albumin/Globulin Ratio 1.1 (1.0-1.7) Allergies Allergies Coded Allergies Type Severity Reaction Last Updated Verified No Known Drug Allergies 08/25/17 No Disposition/Orders: D/C to Home MAGO HUMPHREYS MD Mar 26, 2019 11:25
[2019-03-26] MEDS ORDERED: PANT40TA77 PO (11:28)
[2019-03-26] MEDS ORDERED: PROC10TA57 PO (11:28)
[2019-03-26] MEDS ORDERED: ACET325T9 PO (11:28)
--- NOTE | 2019-03-26 11:29 | DISCH ---
DISCHARGE INSTRUCTIONS Condition on Discharge Condition on Discharge: Stable Activity After Discharge Activity Instructions for Disc: Activity as tolerated Lifting Instructions after Dis: No heavy lifting, No pulling or pushing Exercise Instruction after Dis: Walk 10 min, 3 x per day Driving Instructions after Dis: Do not drive today Diet after Discharge Diet after Discharge: Regular Liquid Texture: Thin Liquid Checks after Discharge Checks after discharge: Check blood press - daily Contacting the DR. after DC Call your doctor for: If your condition worsens Warfarin Follow-Up Warfarin Follow UP: see gi in one week if not improving MAGO HUMPHREYS MD Mar 26, 2019 11:29
--- NOTE | 2019-03-26 13:48 | NUR ---
Discharge Note: FRANK BECKWITH Discharge instructions and discharge home medications reviewed with Patient and a copy given. All questions have been answered and understanding verbalized. The following instructions and handouts were given: Diet for Gastroesophageal Reflux Disease, Adult; Nausea and Vomiting; Abdominal Pain; Gastroesophageal Reflux Disease, Adult, Bloody Stools Discontinued lines and drains: peripheral IVs in right FA and left AC removed. Patient discharged to home with self-care via ambulation to private vehicle. This nurse spoke with GI MD. MD stated ok to [place].
== END 2019-03-26 13:30 | disposition home or self-care (01) | DRG 391 ==
LOC: ER 09:54 → 5 SOUTH 12:36
PROVIDERS: ADMIT Internal Medicine; ATTEND Internal Medicine
DX: K52.9 Noninfective gastroenteritis and colitis, unspecified (principal); K57.91 Diverticulosis of intestine, part unspecified, without perforation or abscess with bleeding; E78.00 Pure hypercholesterolemia, unspecified; E78.5 Hyperlipidemia, unspecified; F32.9 Major depressive disorder, single episode, unspecified; F41.9 Anxiety disorder, unspecified; I10 Essential (primary) hypertension; K59.00 Constipation, unspecified; K64.9 Unspecified hemorrhoids; K76.0 Fatty (change of) liver, not elsewhere classified; K76.89 Other specified diseases of liver; Z82.49 Family history of ischemic heart disease and other diseases of the circulatory system; Z87.11 Personal history of peptic ulcer disease; Z87.442 Personal history of urinary calculi; Z90.49 Acquired absence of other specified parts of digestive tract
CPT/HCPCS: 36415; 74177; 76705; 78227; 80048; 80053; 81001; 82274; 82533; 83690; 84484; 85025; 93005; 96361; 96374; 96375; A9537; C9113; J0780; J2405; J2805; J3010; J7030; 99285-25; G0378

== ENCOUNTER → 2019-04-05 | Outpatient (CLI) | payer MEDICARE, OTHER ==
[2019-03-26 11:04] VITALS: BP 137/68
[~2019-04-05] MED LIST changes: +ACET325T9 PO; +PANT40TA77 PO; +PROC10TA57 PO
--- NOTE | 2019-04-05 12:40 | RAD ---
Gastric Emptying Study Indication: Nausea and vomiting x2 months. Abdominal tenderness. Procedure: Anterior and posterior projection static images are obtained over the stomach following oral administration of 2 mCi of 99 M technetium sulfur colloid in a solid meal (egg and toast). Time points include an immediate baseline, and 1, 2, 3, and 4 hours post ingestion. Findings: There is progressive emptying of the stomach on sequential images. Percentage retention at... One hour is 36% (normal 34.8-91%). Two hours 11% (normal 2.7-60%). Three hours 4% (normal 0.5-28%). Four hours 2% (normal 0-10%). Impression: Normal gastric emptying times Consensus Recommendations for Gastric Emptying Scintigraphy: A Joint Report of the [place] [employer] Society and the Society of Nuclear Medicine: J. Nucl. Med. Technol. June 2007 vol. 36 no. 1 44-54 Grading for severity of delayed GE based on the 4-h value: grade 1 (mild): 11?20% retention at 4 h grade 2 (moderate): 21?35% retention at 4 h grade 3 (severe): 36?50% retention at 4 h grade 4 (very severe): >50% retention at 4 h. Electronically signed by: Harinder Silverio MD (04/05/2019 12:37 PM) [id number]
== END | disposition home or self-care (01) ==
LOC: NM 07:45
PROVIDERS: ATTEND Internal Medicine Gastroenterology
DX: R10.817 Generalized abdominal tenderness (principal); R11.2 Nausea with vomiting, unspecified; I10 Essential (primary) hypertension
CPT/HCPCS: 78264; A9541

== ENCOUNTER 2019-04-26 12:23 | Emergency (ER) | payer MEDICARE, OTHER ==
[~2019-04-26] VITALS: Ht 165.1 cm; Wt 81.6 kg
[2019-04-26] MEDS ORDERED: IV NORMAL SALINE 1000ML BAG 1,000 ML IV ONE (13:00)
[2019-04-26] MEDS ORDERED: METOCLOPRAMIDE HCL 10 MG/2 ML VIAL. IVP ONE (13:00)
[2019-04-26] MEDS ORDERED: DEXAMETHASONE 4 MG TABLET PO ONE (13:00)
[2019-04-26] MEDS ORDERED: KETOROLAC 15 MG/ML VIAL. IVP ONE (13:00)
[2019-04-26 13:19] LABS: BASO # 0.1 x10^3/uL (0.0-0.2); BASO % 1 % (0-3); EOS # 0.1 x10^3/uL (0.0-0.7); EOS % 1 % (0-3); HEMOGLOBIN 13.5 g/dL (12.0-15.5); LYMPH # 1.4 x10^3/uL (1.0-4.8); LYMPH % 25 % (24-48); MEAN CORPUSCULAR HEMOGLOBIN 30 pg (25-35); MEAN CORPUSCULAR HGB CONC 34 g/dL (31-37); MEAN CORPUSCULAR VOLUME 89 fL (79-100); MONO # 0.5 x10^3/uL (0.0-1.1); MONO % 9 % (0-9); NEUT # 3.5 x10^3/uL (1.8-7.7); NEUT % 64 % (31-73); PLATELET COUNT 276 x10^3/uL (140-400); RED BLOOD COUNT 4.52 x10^6/uL (3.50-5.40); RED CELL DISTRIBUTION WIDTH 14.1 % (11.5-14.5); WHITE BLOOD COUNT 5.5 x10^3/uL (4.0-11.0)
[2019-04-26 13:28] LABS: CREATININE 0.9 mg/dL (0.6-1.0); GFR 62.3; POTASSIUM 4.1 mmol/L (3.5-5.1)
--- NOTE | 2019-04-26 13:30 | PHYS DOC ---
Past Medical History Past Medical History: Anxiety, Depression, High Cholesterol, Hypertension, Kidney Stone, UTI Additional Past Medical Histor: stomach ulcer Past Surgical History: Tonsillectomy, Tubal ligation Additional Past Surgical Histo: kidney stone removal, lacerated ureter, upper and lower GI scope Additional Information: nonsmoker Alcohol Use: None Drug Use: None Adult General Chief Complaint Chief Complaint: Palpitations HPI HPI Patient is a 68-year-old female with past medical history of high blood pressure, high cholesterol, and anxiety is presenting to the emergency department with palpitations. Patient states for the last 2 weeks she has felt weak and overall just not like herself. She states that she was having a GI procedure done when they noticed that she had an irregular heartbeat on her rhythm strip and she was told to follow up with cardiology and come to the emergency department to be evaluated. Patient denies chest pain, shortness breath, confusion, abdominal pain, constipation, diarrhea, dysuria, increased frequency, increased leg swelling. Patient states that this is never happened before. Patient denies trauma. Review of Systems Review of Systems Constitutional: Denies fever or chills Eyes: Denies redness or eye pain HENT: Denies nasal congestion or sore throat Respiratory: Denies cough or shortness of breath Cardiovascular: Denies chest pain, reports palpitations GI: Denies abdominal pain, nausea, or vomiting : Denies dysuria or hematuria Musculoskeletal: Denies back pain or joint pain Integument: Denies rash or skin lesions Neurologic: Denies focal weakness or sensory changes, reports headache Complete systems were reviewed and found to be within normal limits, except as documented in this note. Current Medications Current Medications Current Medications Medications (Trade) Dose Ordered Sig/Dakota Start Time Stop Time Status Last Admin Dose Admin Dexamethasone (Decadron) 10 mg 1X ONCE 04/26/19 13:00 04/26/19 13:07 DC 04/26/19 13:31 10 MG Ketorolac Tromethamine (Toradol 15mg Vial) 15 mg 1X ONCE 04/26/19 13:00 04/26/19 13:07 DC 04/26/19 13:26 15 MG Metoclopramide HCl (Reglan Vial) 10 mg 1X ONCE 04/26/19 13:00 04/26/19 13:07 DC 04/26/19 13:23 10 MG Sodium Chloride 1,000 ml @ 1,000 mls/hr 1X ONCE 04/26/19 13:00 04/26/19 13:59 DC 04/26/19 13:23 1,000 MLS/HR Allergies Allergies Allergies Coded Allergies Type Severity Reaction Last Updated Verified No Known Drug Allergies 08/25/17 No Physical Exam Physical Exam Constitutional: Well developed, well nourished, no acute distress, non-toxic appearance HENT: Normocephalic, atraumatic, oropharynx moist Eyes: Conjunctiva normal, no discharge Neck: Normal range of motion, no tenderness, supple Cardiovascular: Heart rate normal, regular rhythm Lungs & Thorax: Bilateral breath sounds clear to auscultation, no wheezing Abdomen: Soft, no tenderness Skin: Warm, dry, no erythema, no rash Back: No tenderness, no CVA tenderness Extremities: No tenderness, ROM intact, no edema Neurologic: Alert and oriented X 3, no focal deficits noted Psychologic: Affect normal, judgement normal, mood normal Current Patient Data Vital Signs Vital Signs Date Time Temp Pulse Resp B/P (MAP) Pulse Ox O2 Delivery O2 Flow Rate FiO2 04/26/19 15:06 124/89 (101) 93 Room Air 04/26/19 14:43 75 14 04/26/19 12:35 98.0 98.0 Lab Values Laboratory Tests Test 04/26/19 13:10 04/26/19 13:15 White Blood Count 5.5 x10^3/uL (4.0-11.0) Red Blood Count 4.52 x10^6/uL (3.50-5.40) Hemoglobin 13.5 g/dL (12.0-15.5) Hematocrit 40.0 % (36.0-47.0) Mean Corpuscular Volume 89 fL (79-100) Mean Corpuscular Hemoglobin 30 pg (25-35) Mean Corpuscular Hemoglobin Concent 34 g/dL (31-37) Red Cell Distribution Width 14.1 % (11.5-14.5) Platelet Count 276 x10^3/uL (140-400) Neutrophils (%) (Auto) 64 % (31-73) Lymphocytes (%) (Auto) 25 % (24-48) Monocytes (%) (Auto) 9 % (0-9) Eosinophils (%) (Auto) 1 % (0-3) Basophils (%) (Auto) 1 % (0-3) Neutrophils # (Auto) 3.5 x10^3/uL (1.8-7.7) Lymphocytes # (Auto) 1.4 x10^3/uL (1.0-4.8) Monocytes # (Auto) 0.5 x10^3/uL (0.0-1.1) Eosinophils # (Auto) 0.1 x10^3/uL (0.0-0.7) Basophils # (Auto) 0.1 x10^3/uL (0.0-0.2) Prothrombin Time 13.0 SEC (11.7-14.0) Prothrombin Time INR 1.0 (0.8-1.1) Activated Partial Thromboplast Time 26 SEC (24-38) Sodium Level 143 mmol/L (136-145) Potassium Level 4.1 mmol/L (3.5-5.1) Chloride Level 105 mmol/L (98-107) Carbon Dioxide Level 25 mmol/L (21-32) Anion Gap 13 (6-14) Blood Urea Nitrogen 15 mg/dL (7-20) Creatinine 0.9 mg/dL (0.6-1.0) Estimated GFR (Cockcroft-Gault) 62.3 BUN/Creatinine Ratio 17 (6-20) Glucose Level 103 mg/dL (70-99) H Calcium Level 9.0 mg/dL (8.5-10.1) Magnesium Level 2.4 mg/dL (1.8-2.4) Total Bilirubin 0.3 mg/dL (0.2-1.0) Aspartate Amino Transferase (AST) 17 U/L (15-37) Alanine Aminotransferase (ALT) 17 U/L (14-59) Alkaline Phosphatase 85 U/L (46-116) Creatine Kinase 99 U/L (26-192) Creatine Kinase MB (Mass) 1.5 ng/mL (0.0-3.6) Creatine Kinase MB Relative Index 1.5 % (0-4) Troponin I Quantitative < 0.017 ng/mL (0.000-0.055) LV-Kcx-R-Type Natriuretic Peptide 163 pg/mL (0-124) H Total Protein 7.1 g/dL (6.4-8.2) Albumin 3.9 g/dL (3.4-5.0) Albumin/Globulin Ratio 1.2 (1.0-1.7) Lipase 199 U/L (73-393) Thyroid Stimulating Hormone (TSH) 0.856 uIU/mL (0.358-3.74) Free Thyroxine 1.16 ng/dL (0.76-1.46) Free Triiodothyronine (T3) pg/mL 2.89 pg/mL (2.18-3.98) Urine Collection Type Void Urine Color Yellow Urine Clarity Clear Urine pH 7.5 Urine Specific [place] 1.020 Urine Protein Negative mg/dL (NEG-TRACE) Urine Glucose (UA) Negative mg/dL (NEG) Urine Ketones (Stick) Trace mg/dL (NEG) Urine Blood Negative (NEG) Urine Nitrite Negative (NEG) Urine Bilirubin Negative (NEG) Urine Urobilinogen Dipstick 0.2 mg/dL (0.2 mg/dL) Urine Leukocyte Esterase Small (NEG) Urine RBC Occ /HPF (0-2) Urine WBC 1-4 /HPF (0-4) Urine Squamous Epithelial Cells Mod /LPF Urine Bacteria Few /HPF (0-FEW) Urine Mucus Slight /LPF Laboratory Tests 04/26/19 13:10 Laboratory Tests 04/26/19 13:10 EKG EKG EKG at 1238 that shows sinus rhythm at 40 bpm with periodic PVCs, no ST elevations Radiology/Procedures Radiology/Procedures [] Course & Med Decision Making Course & Med Decision Making Pertinent Labs reviewed. (See chart for details) Patient is a 68-year-old female with a past medical history of high blood pressure, high cholesterol, and anxiety as presents to emergency department with palpitations. Patient was seen and examined at bedside. Physical exam was significant for heart rate regular rhythm, no murmur, lungs clear to auscultation bilaterally. Labs ordered. EKG at 1238 that shows sinus rhythm at 40 bpm with periodic PVCs, no ST elevations. In triage the patient's heart rate was in the 40s but upon moving to the room patient's heart rate improved to 75 bpm. Labs normal, nausea treated. Patient will be discharged home with referral to cardiology for further evaluation of palpitations. Patient stable for discharge with outpatient follow-up with PCP. Discussed findings and plan with patient and family, who acknowledge understanding and agreement. Dragon Disclaimer Dragon Disclaimer This electronic medical record was generated, in whole or in part, using a voice recognition dictation system. Departure Departure Impression: Primary Impression: Palpitations Disposition: 01 HOME, SELF-CARE Condition: STABLE Referrals: SANTI العراقي MD (PCP) CM BELTRAN MD Patient Instructions: Palpkamini, Miqu-oj-Joda SARAH SIDHU DO Apr 26, 2019 13:30
[2019-04-26 13:34] LABS: ALBUMIN 3.9 g/dL (3.4-5.0); ALBUMIN/GLOBULIN RATIO 1.2 (1.0-1.7); MAGNESIUM 2.4 mg/dL (1.8-2.4); TOTAL BILIRUBIN 0.3 mg/dL (0.2-1.0); TOTAL PROTEIN 7.1 g/dL (6.4-8.2)
[2019-04-26 13:39] LABS: BILIRUBIN,URINE NEGATIVE (NEG); COLOR,URINE YELLOW; NITRITE,URINE NEGATIVE (NEG); PH,URINE 7.5; PROTEIN,URINE NEGATIVE (NEG-TRACE); UROBILINOGEN,URINE 0.2 mg/dL (0.2 mg/dL)
[2019-04-26 13:45] LABS: FREE T4 1.16 ng/dL (0.76-1.46); THYROID STIM HORMONE (TSH) 0.856 uIU/mL (0.358-3.74)
[2019-04-26 13:47] LABS: CLARITY,URINE CLEAR
[2019-04-26 13:51] LABS: BACTERIA,URINE FEW /HPF (0-FEW); RBC,URINE OCC /HPF (0-2); SQUAMOUS EPITHELIAL CELL,UR MOD /LPF
[2019-04-26 15:06] VITALS: BP 124/89
--- NOTE | 2019-04-27 06:02 | EKG ---
[facility] [address] [place] [address] Test Date: 2019-04-26 Test Time: 12:38:55 Pat Name: FRANK BECKWITH Department: Room: Gender: F [employer]: : 1950 Requested By: SARAH SIDHU Order Number: [id number] Reading MD: Measurements Intervals [place] Rate: 39 P: MS: QRS: 54 QRSD: 134 T: -109 QT: 510 QTc: 418 Interpretive Statements SECOND OR THIRD DEGREE AV-BLOCK LEFT BUNDLE BRANCH BLOCK ABNORMAL ECG No previous ECG available for comparison
== END 2019-04-26 15:29 | disposition home or self-care (01) ==
LOC: ER 12:23
DX: R00.2 Palpitations (principal); R11.2 Nausea with vomiting, unspecified; I10 Essential (primary) hypertension; E78.00 Pure hypercholesterolemia, unspecified; F41.9 Anxiety disorder, unspecified; G43.909 Migraine, unspecified, not intractable, without status migrainosus; Z98.51 Tubal ligation status; Z87.440 Personal history of urinary (tract) infections; Z87.442 Personal history of urinary calculi
CPT/HCPCS: 36415; 80053; 81001; 82553; 83690; 83735; 83880; 84439; 84443; 84481; 84484; 85025; 85610; 85730; 87086; 93005; 96361; 96374; 96375; 99285; J1885; J2765; J7030; J8540

== ENCOUNTER → 2019-05-09 | Outpatient (CLI) | payer MEDICARE, OTHER ==
[2019-04-26 15:06] VITALS: BP 124/89
[~2019-05-09] MED LIST changes: +GADOTERATE 7.5 MMOL/15ML VIAL. IVP ONE
--- NOTE | 2019-05-09 15:59 | KCIC ---
BRAIN WO/W CONTRAST History: Headaches. Nausea and vomiting. Technique: Multiplanar, multi sequential pre and postcontrast MR imaging was performed of the brain. Comparison: None Findings: No acute infarct. No intracranial hemorrhage. No mass effect. No hydrocephalus. Mild brain parenchymal volume loss. Mild foci of T2/FLAIR hyperintensities within the hemispheric white matter, most often due to chronic microvascular ischemia. Small chronic left cerebellar lacunar infarct. Incidentally noted small right anterior cranial fossa arachnoid cyst measures 1.9 x 1.7 cm.. No evidence of empty sella or slitlike lateral ventricles to suggest intracranial hypertension. Optic nerve sheaths are relatively normal. No pathologic enhancement. Incidentally noted left frontal developmental venous anomaly. Imaged orbits are unremarkable. Imaged paranasal sinuses and mastoid air cells are clear. Impression: 1. No acute intracranial abnormality. No MRI evidence of intracranial hypertension. 2. Mild brain parenchymal volume loss. 3. Small chronic left cerebellar lacunar infarct. Electronically signed by: Storm Finch DO (05/09/2019 3:56 PM) [facility]-KC[facility]
== END | disposition home or self-care (01) ==
LOC: KCIC MRI 13:26
PROVIDERS: ATTEND Nurse Practitioner Family
DX: I63.81 Other cerebral infarction due to occlusion or stenosis of small artery (principal); G93.0 Cerebral cysts
CPT/HCPCS: 70553; A9575

== ENCOUNTER 2020-07-07 14:10 | Emergency (ER) | payer MEDICARE, OTHER ==
[~2020-07-07] VITALS: Ht 165.1 cm; Wt 80.0 kg
[~2020-07-07 14:10] MED LIST changes: +AMLO-187 PO; -AMLO10TA8 PO; -GADOTERATE 7.5 MMOL/15ML VIAL. IVP ONE
[2020-07-07 14:39] LABS: BASO # 0.1 x10^3/uL (0.0-0.2); BASO % 1 % (0-3); EOS # 0.1 x10^3/uL (0.0-0.7); EOS % 1 % (0-3); HEMATOCRIT 43.1 % (36.0-47.0); HEMOGLOBIN 14.6 g/dL (12.0-15.5); LYMPH # 1.6 x10^3/uL (1.0-4.8); LYMPH % 17 % (24-48); MEAN CORPUSCULAR HEMOGLOBIN 30 pg (25-35); MEAN CORPUSCULAR HGB CONC 34 g/dL (31-37); MEAN CORPUSCULAR VOLUME 88 fL (79-100); MONO # 0.6 x10^3/uL (0.0-1.1); MONO % 6 % (0-9); NEUT # 6.9 x10^3/uL (1.8-7.7); NEUT % 75 % (31-73); PLATELET COUNT 334 x10^3/uL (140-400); RED BLOOD COUNT 4.87 x10^6/uL (3.50-5.40); RED CELL DISTRIBUTION WIDTH 13.4 % (11.5-14.5); WHITE BLOOD COUNT 9.3 x10^3/uL (4.0-11.0)
[2020-07-07 14:42] LABS: BILIRUBIN,URINE NEGATIVE (NEG); CLARITY,URINE CLEAR; COLOR,URINE YELLOW; NITRITE,URINE NEGATIVE (NEG); PH,URINE 5.5 (<5.0-8.0); PROTEIN,URINE NEGATIVE (NEG-TRACE); UROBILINOGEN,URINE 0.2 mg/dL (0.2 mg/dL)
--- NOTE | 2020-07-07 14:44 | RAD ---
EXAM: Chest, single view. HISTORY: Coarse breath. COMPARISON: None. FINDINGS: A frontal view of the chest is obtained. There is no infiltrate, pleural effusion or pneumo thorax.. There is a prominent cardiac silhouette, likely accentuated due to portable technique. IMPRESSION: No acute pulmonary finding. Electronically signed by: Meri Sawyer MD (07/07/2020 2:42 PM) [id number]
[2020-07-07 14:51] LABS: CALCIUM 9.8 mg/dL (8.5-10.1); CREATININE 0.8 mg/dL (0.6-1.0); GFR 70.9; POTASSIUM 3.9 mmol/L (3.5-5.1)
[2020-07-07 14:53] LABS: BACTERIA,URINE 0 /HPF (0-FEW); RBC,URINE 0 /HPF (0-2)
[2020-07-07 14:57] LABS: ALBUMIN 3.9 g/dL (3.4-5.0); ALBUMIN/GLOBULIN RATIO 1.2 (1.0-1.7); TOTAL BILIRUBIN 0.3 mg/dL (0.2-1.0); TOTAL PROTEIN 7.2 g/dL (6.4-8.2)
[2020-07-07] MEDS ORDERED: IV NORMAL SALINE 1000ML BAG 1,000 ML IV ONE (15:15)
[2020-07-07] MEDS ORDERED: MECLIZINE HCL 12.5 MG TABLET. PO ONE (15:15)
--- NOTE | 2020-07-07 16:04 | ED.ADGEN ---
Past Medical History Past Medical History: Anxiety, Depression, High Cholesterol, Hypertension, Kidney Stone, UTI Additional Past Medical Histor: stomach ulcer Past Surgical History: Tonsillectomy, Tubal ligation Additional Past Surgical Histo: kidney stone removal, lacerated ureter Smoking Status: Never Smoker Alcohol Use: None Drug Use: None General Adult EDM: Chief Complaint: DIZZY/LIGHT HEADED HPI: HPI: Patient is a 70-year-old female who presents to the emergency room complaining of lightheadedness, feeling generally unwell, and minimal rectal bleeding. Patient states that this morning she woke up with a migraine. She wakes up with migraines often. Her headache felt like all past headaches. She states that it has mostly gone away. She did take Excedrin and right after taking Excedrin she started to having this lightheaded feeling. She states that she had some bright red rectal bleeding this afternoon. She has had rectal bleeding before. She states that this was a small amount. She denies any kind of shortness of breath. She does not have any kind of chest pain. She called her GI physician who recommended that she come to the emergency room for evaluation. She recently saw the route delivery supervisor Dr. Tim due to some lightheaded feelings. She does have an irregular heartbeat and this is unchanged from prior. She states that she got a completely normal work-up from Dr. Tim. Review of Systems: Review of Systems: Complete ROS is negative unless otherwise documented in HPI Current Medications: Current Medications Medications (Trade) Dose Ordered Sig/Dakota Start Time Stop Time Status Last Admin Dose Admin Meclizine HCl (Antivert) 25 mg 1X ONCE 07/07/20 15:15 07/07/20 15:16 DC 07/07/20 15:26 25 MG Sodium Chloride 1,000 ml @ 1,000 mls/hr 1X ONCE 07/07/20 15:15 07/07/20 16:14 DC 07/07/20 15:27 1,000 MLS/HR Allergies: Allergies: Allergies Coded Allergies Type Severity Reaction Last Updated Verified No Known Drug Allergies 08/25/17 No Physical Exam: PE: General: Awake, alert, NAD. Well Nourished, well hydrated. Cooperative HEENT: Atraumatic, EOMI, PERRL, airway patent, moist oral mucosa Neck: Supple, trachea midline Respiratory: CTA bilaterally, normal effort, no wheezing/crackles CV: RRR, no murmur, cap refill <2 GI: Soft, nondistended, nontender, no masses MSK: No obvious deformities Skin: Warm, dry, intact Neuro: A&O x3, speech NL, sensory and motor grossly intact, no focal deficits Psych: Normal affect, normal mood, not suicidal or homicidal Current Patient Data: Labs: Laboratory Tests Test 07/07/20 13:21 07/07/20 14:35 Urine Collection Type Unknown Urine Color Yellow Urine Clarity Clear Urine pH 5.5 (<5.0-8.0) Urine Specific [place] 1.010 (1.000-1.030) Urine Protein Negative mg/dL (NEG-TRACE) Urine Glucose (UA) Negative mg/dL (NEG) Urine Ketones (Stick) Negative mg/dL (NEG) Urine Blood Negative (NEG) Urine Nitrite Negative (NEG) Urine Bilirubin Negative (NEG) Urine Urobilinogen Dipstick 0.2 mg/dL (0.2 mg/dL) Urine Leukocyte Esterase Negative (NEG) Urine RBC 0 /HPF (0-2) Urine WBC 1-4 /HPF (0-4) Urine Squamous Epithelial Cells Few /LPF Urine Bacteria 0 /HPF (0-FEW) White Blood Count 9.3 x10^3/uL (4.0-11.0) Red Blood Count 4.87 x10^6/uL (3.50-5.40) Hemoglobin 14.6 g/dL (12.0-15.5) Hematocrit 43.1 % (36.0-47.0) Mean Corpuscular Volume 88 fL (79-100) Mean Corpuscular Hemoglobin 30 pg (25-35) Mean Corpuscular Hemoglobin Concent 34 g/dL (31-37) Red Cell Distribution Width 13.4 % (11.5-14.5) Platelet Count 334 x10^3/uL (140-400) Neutrophils (%) (Auto) 75 % (31-73) H Lymphocytes (%) (Auto) 17 % (24-48) L Monocytes (%) (Auto) 6 % (0-9) Eosinophils (%) (Auto) 1 % (0-3) Basophils (%) (Auto) 1 % (0-3) Neutrophils # (Auto) 6.9 x10^3/uL (1.8-7.7) Lymphocytes # (Auto) 1.6 x10^3/uL (1.0-4.8) Monocytes # (Auto) 0.6 x10^3/uL (0.0-1.1) Eosinophils # (Auto) 0.1 x10^3/uL (0.0-0.7) Basophils # (Auto) 0.1 x10^3/uL (0.0-0.2) Sodium Level 141 mmol/L (136-145) Potassium Level 3.9 mmol/L (3.5-5.1) Chloride Level 105 mmol/L (98-107) Carbon Dioxide Level 24 mmol/L (21-32) Anion Gap 12 (6-14) Blood Urea Nitrogen 13 mg/dL (7-20) Creatinine 0.8 mg/dL (0.6-1.0) Estimated GFR (Cockcroft-Gault) 70.9 BUN/Creatinine Ratio 16 (6-20) Glucose Level 110 mg/dL (70-99) H Calcium Level 9.8 mg/dL (8.5-10.1) Total Bilirubin 0.3 mg/dL (0.2-1.0) Aspartate Amino Transferase (AST) 25 U/L (15-37) Alanine Aminotransferase (ALT) 28 U/L (14-59) Alkaline Phosphatase 98 U/L (46-116) Troponin I Quantitative < 0.017 ng/mL (0.000-0.055) Total Protein 7.2 g/dL (6.4-8.2) Albumin 3.9 g/dL (3.4-5.0) Albumin/Globulin Ratio 1.2 (1.0-1.7) Laboratory Tests 07/07/20 14:35 Laboratory Tests 07/07/20 14:35 Vital Signs: Vital Signs Date Time Temp Pulse Resp B/P (MAP) Pulse Ox O2 Delivery O2 Flow Rate FiO2 07/07/20 16:56 72 16 157/6 (56) 95 Room Air 07/07/20 14:15 98.6 98.6 EKG: EKG: [] Heart Score: C/O Chest Pain: N/A Risk Factors: Risk Factors: DM, Current or recent (<one month) smoker, HTN, HLP, family h istory of CAD, obesity. Risk Scores: Score 0 - 3: 2.5% MACE over next 6 weeks - Discharge Home Score 4 - 6: 20.3% MACE over next 6 weeks - Admit for Clinical Observation Score 7 - 10: 72.7% MACE over next 6 weeks - Early Invasive Strategies Radiology/Procedures: Radiology/Procedures: [] Course & Med Decision Making: Course & Med Decision Making Pertinent Labs and Imaging studies reviewed. (See chart for details) Patient is a 70-year-old female with a history of hypertension, PVCs who presents to the emergency room complaining of generalized weakness and lightheadedness. History and exam are significant for rectal bleeding. Patient does not have any Given age and history differential for generalized weakness includes dehydration, electrolyte abnormalities, anemia, infection, arrhythmia, medication side effect, rectal bleed. At this time CBC, BMP, EKG, UA, troponin, chest x-ray were ordered to evaluate for causes of weakness. Work-up is unremarkable. Hemoglobin is normal. Patient was given fluids and meclizine. CT and pelvis was ordered due to patient's rectal bleeding. Patient does have colitis. I have discussed the case with Dr. Hogan the on-call GI physician. He states that he does feel that it is safe for the patient to go home. We discussed symptoms that would require her to return. I had a long discussion of risks and benefits of admission versus discharge with the patient. At this time she would like to try to go home. We will place her on Augmentin and give her medications for symptom control. She will return to the emergency room if she has any kind of syncope, worsening rectal bleeding, shortness of breath, chest pain. Patient's test results and vitals while in the ED were fully reviewed and discussed with the patient. Patient is stable and at this time does not need admission to the hospital. We have discussed strict return precautions and the importance of following up with their Primary Care Physician. Patient stated understanding and was given an opportunity to ask any questions. Patient is in agreement with plan. Elyssa Disclaimer: Elyssa Disclaimer: This electronic medical record was generated, in whole or in part, using a voice recognition dictation system. Departure Departure Impression: Primary Impression: Lightheaded Additional Impression: Colitis Disposition: 01 DC HOME SELF CARE/HOMELESS Condition: STABLE Referrals: SANTI العراقي MD (PCP) Patient Instructions: Colitis Scripts Ondansetron (ONDANSETRON ODT) 4 Mg Tab.rapdis 1 TAB PO PRN Q6-8HRS, #16 TAB Prov: JAUN JOAQUIN MD 07/07/20 Hyoscyamine Sulfate (LEVSIN-SL) 0.125 Mg Tab.subl 2-Km TAB SL PRN Q4HRS PRN for pain for 5 Days, #60 TAB 0 Refills Prov: JAUN JOAQUIN MD 07/07/20 Amoxicillin/Potassium Clav (AUGMENTIN 875-125 TABLET) 1 Each Tablet 1 TAB PO Q12HR, #20 TAB Prov: JAUN JOAQUIN MD 07/07/20 Problem Qualifiers JAUN JOAQUIN MD Jul 07, 2020 16:04
[2020-07-07 16:56] VITALS: BP 157/6
--- NOTE | 2020-07-07 16:56 | RAD ---
CT abdomen and pelvis without contrast 07/07/2020. Reason for exam: Pain and rectal bleeding. Helical noncontrast images were performed. Exposure: One or more of the following individualized dose reduction techniques were utilized for this examination: 1. Automated exposure control 2. Adjustme nt of the mA and/or kV according to patient size 3. Use of iterative reconstruction technique. Brennen rison is made with a prior study of 03/20/2019. FINDINGS: The lung bases are clear. The liver again shows several cysts. No new liver lesion is seen. Evaluation of the solid organs is slightly limited by lack of IV contrast. The spleen appears normal . The kidneys show no apparent mass or obstruction. The adrenal glands are not enlarged. The pancreas appears normal. No retroperitoneal or mesenteric adenopathy is seen. There is no apparent abdominal mass. There may be some thickening of the wall the colon near the splenic flexure at the distal trans verse segment, although evaluation is limited by lack of oral contrast and relatively poor distention . A normal appendix is shown arising from the cecum. Scanning in the Images through the pelvis show no abnormality of the distal ureters or bladder. No pelvic or inguinal adenopathy is seen. There is no apparent pelvic soft tissue mass or inflammatory process. IMPRESSION: There are possible findings of segmental colitis in the distal transverse segment. No oth er acute abnormality is seen. Electronically signed by: Sunil Persaud Jr., MD (07/07/2020 4:54 PM) [facility]
[2020-07-07] MEDS ORDERED: AMOX1TAB61 PO (17:39)
[2020-07-07] MEDS ORDERED: ONDA4TAB12 PO (17:39)
[2020-07-07] MEDS ORDERED: HYOS0.1265 SL (17:39)
[2020-07-07] MEDS ORDERED: HYOSCYAMINE 0.125 MG TAB.RAPDIS PO PRN (17:45)
[2020-07-07] MEDS ORDERED: ONDANSETRON PF 4 MG/2 ML VIAL. IVP ONE (17:45)
[2020-07-07] MEDS ORDERED: AMOXICILLIN/K CLAV 875/125MG TABLET. PO ONE (18:15)
--- NOTE | 2020-07-07 19:07 | EKG ---
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
== END 2020-07-07 18:15 | disposition home or self-care (01) ==
LOC: ER 14:10
DX: K52.9 Noninfective gastroenteritis and colitis, unspecified (principal); K62.5 Hemorrhage of anus and rectum; R42 Dizziness and giddiness; F41.9 Anxiety disorder, unspecified; F32.9 Major depressive disorder, single episode, unspecified; E78.00 Pure hypercholesterolemia, unspecified; I10 Essential (primary) hypertension; Z87.442 Personal history of urinary calculi; Z98.51 Tubal ligation status; Z90.89 Acquired absence of other organs
CPT/HCPCS: 36415; 71045; 74176; 80053; 81001; 84484; 85025; 93005; 96361; 96374; 99285; J2405; J7030; J8597

== ENCOUNTER → 2020-07-10 | Outpatient (CLI) | payer MEDICARE, OTHER ==
[2020-07-07 16:56] VITALS: BP 157/6
[~2020-07-10] MED LIST changes: +AMOX1TAB61 PO; +HYOS0.1265 SL; +IOHEXOL 350 MG/ML 100 ML VIAL. IV ONE; +ONDA4TAB12 PO
--- NOTE | 2020-07-10 17:29 | RAD ---
Exam: CT angiogram abdomen and pelvis with intravenous contrast Indication: GI bleed, evaluate for ischemic colitis. Comparison: CT abdomen pelvis 07/07/2020 Technique: Helical CT imaging performed of the abdomen and pelvis after the intravenous administratio n of 90 mL Omnipaque 350 contrast. Sagittal and coronal reformats were obtained. One or more of the following individualized dose reduction techniques were utilized for this examinat ion: 1. Automated exposure control 2. Adjustment of the mA and/or kV according to patient size 3. Use of iterative reconstruction technique. Findings: Vasculature: The abdominal aorta is normal in caliber. No aneurysm or dissection. Minimal scattered c alcifications. The celiac, superior mesenteric, renal, and inferior mesenteric artery origins are nor mal in caliber and patent. The iliac arteries are patent. Other: Lung bases are clear. The heart is mildly enlarged. There are multiple simple cysts in the semaj er, largest 4.1 cm. The gallbladder, bile ducts, pancreas, spleen, and adrenal glands are normal. Kid neys are normal in size and enhancement. No hydronephrosis. Subcentimeter hypodensities in the left k idney are likely simple cyst. Ureters are normal. Bladder is decompressed. Uterus is unremarkable. No adnexal mass. The, small bowel, colon and appendix are normal. Possible wall thickening in the dista l transverse colon has resolved. No free fluid or free air. No lymphadenopathy. Mild levoscoliosis of the lumbar spine. There is grade 1 spondylolisthesis and severe degenerative disc disease at L4-L5. Mild degenerative disc disease at other levels. There is severe facet arthrosis at L4-L5 and L5-S1. Impression: 1. No aortic aneurysm or dissection. No significant atherosclerosis. Patent abdominal aortic branche s. 2. Normal appearance of the bowel. Possible wall thickening in the distal transverse colon on prior exam has resolved. Electronically signed by: Jolanta Haile MD (07/10/2020 5:27 PM) [id number]
== END ==
LOC: CT 12:33
PROVIDERS: ATTEND Internal Medicine
DX: K62.5 Hemorrhage of anus and rectum (principal); I51.7 Cardiomegaly; K76.89 Other specified diseases of liver; M47.817 Spondylosis without myelopathy or radiculopathy, lumbosacral region
CPT/HCPCS: 74174; Q9967

== ENCOUNTER 2020-07-20 07:02 | Emergency (ER) | payer MEDICARE, OTHER ==
[~2020-07-20] VITALS: Ht 170.2 cm; Wt 80.0 kg
[~2020-07-20 07:02] MED LIST changes: -IOHEXOL 350 MG/ML 100 ML VIAL. IV ONE
[2020-07-20 07:05] VITALS: BP 162/76
--- NOTE | 2020-07-20 07:23 | PHYS DOC ---
Past Medical History Past Medical History: Anxiety, Depression, High Cholesterol, Hypertension, Kidney Stone, UTI Additional Past Medical Histor: stomach ulcer Past Surgical History: Tonsillectomy, Tubal ligation Additional Past Surgical Histo: kidney stone removal, lacerated ureter Smoking Status: Never Smoker Alcohol Use: None Drug Use: None General Adult EDM: Chief Complaint: ABDOMINAL PAIN HPI: HPI: This is a pleasant 70-year-old female presented emerge department today with diarrhea over the past 10 to 12 hours. She recently was diagnosed with colitis and has been taking Augmentin and finished a 14-day course. Previously she had abdominal pain with a small amount of diarrhea. She had some blood in her stools also. Her blood in her stools has resolved however over the past 12 hours she has had large-volume diarrhea with cramping of the abdomen that is mild nonradiating and without alleviating factors. She has felt nauseous and had a few episodes of dry heaving without significantly productive emesis. She is no longer having blood in her stools. She denies chest pain shortness of breath fevers or chills. She denies any new rashes. Review of systems negative for chest pain shortness of breath headache fevers chills nausea vomiting or nuchal rigidity. All other review of systems negative ED course: 70-year-old female presenting with cramping in the abdomen and diarrhea. On arrival the patient is afebrile with a normal heart rate. Blood pressure elevated 162/76. Abdominal exam is unremarkable. CBC unremarkable. Chemistry panel unremarkable. Urine analysis unremarkable. CT abdomen pelvis unremarkable for acute pathology. She was unable to provide a specimen for C. difficile sampling. We will discharge patient to follow-up with PCP in 1 to 2 days. She is to return if she has any worsening condition or any other concerns. She understands the need for close follow-up. The patient has been examined and was not found to have an emergency medical condition. The patient was then discharged home in stable condition to follow up with their primary care physician over the next 1-2 days. They were to return if their symptoms worsened or if they were concerned for any reason. They were also instructed to return to the emergency department if they were unable to get the recommended and appropriate follow-up. [id number] discharge instructions and return precautions were given. Patient's questions were answered to their satisfaction. Patient is comfortable with plan. Review of Systems: Review of Systems: Constitutional: Denies fever or chills. [] Eyes: Denies change in visual acuity. [] HENT: Denies nasal congestion or sore throat. [] Respiratory: Denies cough or shortness of breath. [] Cardiovascular: Denies chest pain or edema. [] GI: positive for diarrhea : Denies dysuria. [] Musculoskeletal: Denies back pain or joint pain. [] Integument: Denies rash. [] Neurologic: Denies headache, focal weakness or sensory changes. [] Endocrine: Denies polyuria or polydipsia. [] Lymphatic: Denies swollen glands. [] Psychiatric: Denies depression or anxiety. [] Heart Score: C/O Chest Pain: No Risk Factors: Risk Factors: DM, Current or recent (<one month) smoker, HTN, HLP, family history of CAD, obesity. Risk Scores: Score 0 - 3: 2.5% MACE over next 6 weeks - Discharge Home Score 4 - 6: 20.3% MACE over next 6 weeks - Admit for Clinical Observation Score 7 - 10: 72.7% MACE over next 6 weeks - Early Invasive Strategies Current Medications: Current Medications Medications (Trade) Dose Ordered Sig/Dakota Start Time Stop Time Status Last Admin Dose Admin Metoclopramide HCl (Reglan Vial) 10 mg 1X ONCE 07/20/20 07:30 07/20/20 07:31 UNV Sodium Chloride 1,000 ml @ 1,000 mls/hr 1X ONCE 07/20/20 07:30 07/20/20 08:29 UNV Allergies: Allergies: Allergies Coded Allergies Type Severity Reaction Last Updated Verified tramadol Adverse Reaction Unknown Nausea and Vomiting 07/20/20 Yes Physical Exam: PE: Constitutional: Well developed, well nourished, no acute distress, non-toxic appearance. [] HENT: Normocephalic, atraumatic, bilateral external ears normal, oropharynx moist, no oral exudates, nose normal. [] Eyes: PERRLA, EOMI, conjunctiva normal, no discharge. [] Neck: Normal range of motion, no tenderness, supple, no stridor. [] Cardiovascular:Heart rate regular rhythm, no murmur [] Lungs & Thorax: Bilateral breath sounds clear to auscultation [] Abdomen: Bowel sounds normal, soft, no tenderness, no masses, no pulsatile masses. [] Negative McBurney's point. Negative Latham sign. Nondistended. No rebound tenderness or guarding. Skin: Warm, dry, no erythema, no rash. [] Back: No tenderness, no CVA tenderness. [] Extremities: No tenderness, no cyanosis, no clubbing, ROM intact, no edema. [] Neurologic: Alert and oriented X 3, normal motor function, normal sensory function, no focal deficits noted. [] Psychologic: Affect normal, judgement normal, mood normal. [] EKG: EKG: [] Radiology/Procedures: Radiology/Procedures: [] Course & Med Decision Making: Course & Med Decision Making Pertinent Labs and Imaging studies reviewed. (See chart for details) [] Dragon Disclaimer: Dragon Disclaimer: This electronic medical record was generated, in whole or in part, using a voice recognition dictation system. Departure Departure Impression: Primary Impression: Abdominal pain Disposition: 01 DC HOME SELF CARE/HOMELESS Condition: STABLE Referrals: SANTI العراقي MD (PCP) Patient Instructions: Diarrhea Additional Instructions: EMERGENCY DEPARTMENT GENERAL DISCHARGE INSTRUCTIONS Follow-up with your primary physician in 1 to 2 days for repeat abdominal exam. Return to the emergency department if you have any new or concerning findings. If you are unable to get into the follow-up appointment you will need to return to the emergency department for reexamination. Thank you for coming to [facility] Emergency Department (ED) today and trusting us with you care. We trust that you had a positive experience in our Emergency Department. If you wish to speak to the department management, you may call the Director at [phone]. Follow up is important in emergency/acute care visits. This condition should be evaluated by your primary care physician and any necessary consulting services for continued management within a few days (1-2) after discharge. Return to the emergency department if you have any new or concerning symptoms including but not limited to fever, chills, nausea, vomiting, intractable pain, any new rashes, chest pain, shortness of breath, uncontrolled bleeding, difficulty breathing, and/or vision loss. 1. Do you have a private Doctor? If you do not have a private doctor, please ask for a resource list of physicians or clinics that may be able to assist you with follow up care. 2. If a lab test or culture has been done and does not come back immediately, your results will be reviewed and you will be notified if you need a change in treatment. 3. Your care today has been supervised by a physician who is specially trained in emergency care. Many problems require more than one evaluation for a complete diagnosis and treatment. We recommend that you schedule your follow up appointment as recommended to ensure complete treatment of you illness or injury. If you are unable to obtain follow up care and continue to have a problem, or if your condition worsens, we recommend that you return to the ED. 4. We are not able to safely determine your condition over the phone nor are we able to give sound medical advice over the phone. For these safety reasons, if you call for medical advice we will ask you to come to the ED for further evaluation. IF YOUR SYMPTOMS WORSEN OR NEW SYMPTOMS DEVELOP, OR YOU HAVE CONCERNS ABOUT YOUR CONDITION; OR IF YOUR CONDITION WORSENS WHILE YOU ARE WAITING FOR YOUR FOLLOW UP APPOINTMENT; EITHER CONTACT YOUR PRIMARY CARE DOCTOR, THE PHYSICIAN WHOSE NAME AND NUMBER YOU WERE GIVEN, OR RETURN TO THE ED IMMEDIATELY. RAMONITA MENDIETA MD Jul 20, 2020 07:23
[2020-07-20] MEDS ORDERED: IV NORMAL SALINE 1000ML BAG 1,000 ML IV ONE (07:30)
[2020-07-20] MEDS ORDERED: METOCLOPRAMIDE HCL 10 MG/2 ML VIAL. IVP ONE (07:30)
[2020-07-20] MEDS: fentaNYL PF VIAL 100 MCG/2 ML VIAL IV PRN ×2 (07:52→08:56)
[2020-07-20 08:05] LABS: BASO # 0.1 x10^3/uL (0.0-0.2); BASO % 1 % (0-3); EOS # 0.1 x10^3/uL (0.0-0.7); EOS % 2 % (0-3); LYMPH # 1.1 x10^3/uL (1.0-4.8); LYMPH % 18 % (24-48); MEAN CORPUSCULAR HEMOGLOBIN 30 pg (25-35); MEAN CORPUSCULAR HGB CONC 33 g/dL (31-37); MEAN CORPUSCULAR VOLUME 90 fL (79-100); MONO # 0.3 x10^3/uL (0.0-1.1); MONO % 5 % (0-9); NEUT # 4.5 x10^3/uL (1.8-7.7); NEUT % 74 % (31-73); PLATELET COUNT 316 x10^3/uL (140-400); RED BLOOD COUNT 4.67 x10^6/uL (3.50-5.40); RED CELL DISTRIBUTION WIDTH 13.5 % (11.5-14.5); WHITE BLOOD COUNT 6.1 x10^3/uL (4.0-11.0)
[2020-07-20 08:08] LABS: BILIRUBIN,URINE NEGATIVE (NEG); CLARITY,URINE CLEAR; COLOR,URINE YELLOW; NITRITE,URINE NEGATIVE (NEG); PH,URINE 5.5 (<5.0-8.0); PROTEIN,URINE NEGATIVE (NEG-TRACE); UROBILINOGEN,URINE 0.2 mg/dL (0.2 mg/dL)
[2020-07-20 08:11] LABS: BACTERIA,URINE 0 /HPF (0-FEW); RBC,URINE 0 /HPF (0-2); WBC,URINE 0 /HPF (0-4)
[2020-07-20 08:12] LABS: CALCIUM 9.5 mg/dL (8.5-10.1); CREATININE 0.8 mg/dL (0.6-1.0); GFR 70.9; POTASSIUM 4.2 mmol/L (3.5-5.1)
[2020-07-20 08:19] LABS: ALBUMIN 3.7 g/dL (3.4-5.0); DIRECT BILIRUBIN 0.1 mg/dL (0.0-0.2); TOTAL BILIRUBIN 0.3 mg/dL (0.2-1.0); TOTAL PROTEIN 7.2 g/dL (6.4-8.2)
[2020-07-20] MEDS ORDERED: IOHEXOL 300 MG/ML 100ML VIAL. IV ONE (08:30)
[2020-07-20] MEDS ORDERED: CONTRAST GIVEN. MC PRN (08:30)
--- NOTE | 2020-07-20 08:45 | RAD ---
EXAMINATION: CT ABDOMEN+PELVIS W (CT ABDOMEN/PELVIS WITH IV CONTRAST) CLINICAL HISTORY: Abdominal pain and diarrhea TECHNIQUE: CT of the abdomen and pelvis was performed using standard technique, scanning from just ab ove the dome of the diaphragm to the symphysis pubis following administration of intravenous contrast . CT Dose Reduction Employed: One or more of the following individualized dose reduction techniques wer e utilized for this examination: 1. Automated exposure control 2. Adjustment of the mA and/or kV ac cording to patient size 3. Use of iterative reconstruction technique. COMPARISON: CTA abdomen/pelvis 07/10/2020 FINDINGS: Partially visualized heart and lung bases unremarkable. Multiple hepatic cysts again noted. Gallbladder, pancreas, spleen, adrenal glands, and kidneys unrema rkable. Mildly filled urinary bladder. No significant pelvic free fluid. No bowel dilation or definite wall thickening. Minimal distention of the stomach, small bowel, and co sagar limits evaluation. Normal appendix. Minimal arterial calcification without aneurysm. No new enlarged mesenteric or retroperitoneal lymph nodes. Levoconvex curvature of the lumbar spine. Thoracolumbar degenerative changes. IMPRESSION: No evidence of acute abdominopelvic abnormality or significant interval change. Electronically signed by: Eric Childress DO (07/20/2020 8:43 AM) [id number]
== END 2020-07-20 09:10 | disposition home or self-care (01) ==
LOC: ER 07:02
DX: R10.9 Unspecified abdominal pain (principal); R19.7 Diarrhea, unspecified; E78.00 Pure hypercholesterolemia, unspecified; I10 Essential (primary) hypertension; Z87.442 Personal history of urinary calculi; Z87.440 Personal history of urinary (tract) infections; Z98.51 Tubal ligation status; Z88.6 Allergy status to analgesic agent
CPT/HCPCS: 74177; 80048; 80076; 81001; 83690; 84484; 85025; 87493; 96361; 96374; 96375; 96376; 99285; J2765; J3010; J7030; Q9967

== ENCOUNTER 2020-08-12 11:08 | Outpatient (CLI) | payer MEDICARE, OTHER ==
[~2020-08-12] VITALS: Ht 165.1 cm; Wt 78.9 kg
[2020-08-12] VITALS (9 sets, daily range): BP systolic 104–141; BP diastolic 53–81
[2020-08-12 11:58] LABS: HEMATOCRIT 44.5 % (36.0-47.0); HEMOGLOBIN 15.4 g/dL (12.0-15.5); RED BLOOD COUNT 4.94 x10^6/uL (3.50-5.40); RED CELL DISTRIBUTION WIDTH 13.7 % (11.5-14.5); WHITE BLOOD COUNT 6.5 x10^3/uL (4.0-11.0)
[2020-08-12 12:08] LABS: PROTHROMBIN TIME PATIENT 13.4 SEC (11.7-14.0)
[2020-08-12 12:11] LABS: CALCIUM 10.4 mg/dL (8.5-10.1); GFR 54.8; POTASSIUM 4.1 mmol/L (3.5-5.1)
[2020-08-12] MEDS ORDERED: IODIXANOL 320 MG/ML 100 ML VIAL. ONE ×2 (12:15)
[2020-08-12] MEDS ORDERED: LIDOCAINE 1% PF 2 ML VIAL. ONE (12:19)
[2020-08-12] MEDS ORDERED: nitroglycerin SL (12:45)
[2020-08-12] MEDS ORDERED: ASPI-621 PO (12:45)
[2020-08-12] MEDS ORDERED: BUTA-177 PO (12:45)
[2020-08-12] MEDS ORDERED: POLY119P4 PO (12:45)
[2020-08-12] MEDS ORDERED: ATOR20TA58 PO (12:45)
[2020-08-12] MEDS ORDERED: FAMO-63 PO (12:45)
[2020-08-12] MEDS ORDERED: HEPARIN for IV BOLUS 10,000 UNIT/10 ML VIAL. ONE (12:49)
[2020-08-12] MEDS ORDERED: VERAPAMIL 5 MG/2 ML VIAL. ONE (12:49)
[2020-08-12] MEDS ORDERED: NITROGLYCERIN 200 MCG/2 ML SYRINGE FOR CATH/VASC LAB. ONE ×2 (12:49→13:12)
[2020-08-12] MEDS ORDERED: MIDAZOLAM HCL/PF 2 MG/2 ML VIAL. ONE ×2 (12:49→13:09)
[2020-08-12] MEDS ORDERED: fentaNYL PF VIAL 100 MCG/2 ML VIAL ONE ×2 (12:49→13:12)
--- NOTE | 2020-08-12 12:58 | PDOC ---
MODERATE SEDATION ASSESSMENT RISKS/ALTERNATIVES Risks/Alternatives Risks and alternatives of this type of sedation and procedure discussed with: RISK/ALTERNATIVES: Patient H & P ON CHART H & P H & P on chart and reviewed for co-morbid conditions and appropriate labs. H&P ON CHART: Yes STATUS PREG STATUS ASSESSED: N/A MEDS/ALLERGIES REVIEWED Meds/Allergies Reviewed Medications and Allergies including time and route of recently administered narcotics and sedatives. MEDS/ALLERGIES REVIEWED: Yes ASA RATING ASA RATING: II AIRWAY ASSESSMENT Airway Assessment Airway patency, oral function limitations, presence of caps, crowns, dentures, partials, and ability to extend neck assessed. AIRWAY ASSESSMENT: Yes MALLAMPATI SCORE MALLAMPATI SCORE: II PRE-SEDATION ASSESSMENT PRE-SEDATION ASSESSMENT: Yes CM BELTRAN MD Aug 12, 2020 12:58
[2020-08-12] MEDS ORDERED: LIDOCAINE 1% Multi-Dose 20 ML VIAL. ONE (13:15)
[2020-08-12] MEDS ORDERED: MIDAZOLAM HCL/PF 2 MG/2 ML VIAL. IV ONE (13:30)
[2020-08-12] MEDS ORDERED: IODIXANOL 320 MG/ML 100 ML VIAL. IART ONE (13:30)
[2020-08-12] MEDS ORDERED: HEPARIN for IV BOLUS 10,000 UNIT/10 ML VIAL. IART ONE (13:30)
[2020-08-12] MEDS ORDERED: fentaNYL PF VIAL 100 MCG/2 ML VIAL IV ONE (13:30)
[2020-08-12] MEDS ORDERED: LIDOCAINE 1% Multi-Dose 20 ML VIAL. INJ ONE (13:30)
[2020-08-12] MEDS ORDERED: LIDOCAINE 1% PF 2 ML VIAL. INJ ONE (13:30)
[2020-08-12] MEDS ORDERED: VERAPAMIL 5 MG/2 ML VIAL. IART ONE (13:30)
[2020-08-12] MEDS ORDERED: NITROGLYCERIN 200 MCG/2 ML SYRINGE FOR CATH/VASC LAB. IART ONE (13:30)
[2020-08-12] MEDS ORDERED: CONTRAST GIVEN. MC PRN (14:00)
--- NOTE | 2020-08-12 14:19 | CARD ---
MR#: [id number] Date of Study: 08/12/2020 Ordering Physician: CM TIM, Referring Physician: CM TIM, Tech: RT Lizeth(R)() APPROVED REPORT Technologist: Nial Presley RT(R)() Nurse: Yamel Davis RN Procedure(s) performed: Fluoro Time: 4.7 min Dose: 45 Gycm2 Contrast: 54ml Mod Sed:35 min LHC, Coronary angiography HISTORY : The patient is a 70 year-old female with a history of . INDICATION The indication(s) include : unstable angina , dyspnea. [facility] Clinical Frailty Scale [facility] Clinical Frailty Scale: Moderately Frail Heart Failure Heart Failure: No CASE TECHNIQUE IV conscious sedation was used throughout procedure with appropriate monitoring and was performed in the presence of a registered nurse who was an independent trained observer other than the physician p erforming the procedure. During this case, Fluoroscopy and low osmolar contrast were used for imaging . Specimen(s) Removed: N/A Estimated Blood loss: 15 cc's. PROCEDURE NARRATIVE After explaining the risks and benefits of the procedure and alternatives, informed consent was obtai mena. The patient was brought electively to the cardiac catheterization lab in a fasting state. A sydnee eout was performed confirming the patient's name, date of , procedure, and site of procedure. A ll necessary personnel were wearing the appropriate protective equipment and radiation monitor device s. (See nursing notes for medications administered). The right wrist was prepped in usual sterile f ashion. Under 1% lidocaine local anesthesia, a 6Fr sheath was inserted in the right radial artery wit h the seldinger technique. Multiple attempts to advance a 6Fr TIG, 5Fr TIG, 4fr JR4 were unsuccessful due to significant spasm at the level of the elbow. Therefore, this approach was abandoned. The [facility] t groin was sterilely prepped and draped in the usual fashion. The right groin was infiltrated with 10 mL of 2% lidocaine for subcutaneous anesthesia. A 6 F sheath was inserted into the right femoral artery without difficulty. Right and left coronary angiography was performed using a 4Fr JR4 and JL4 catheter. Left ventricular end diastolic pressure was obtained with a JR4 catheter and pullback was performed . All catheter exchanges and advancements were performed over a guidewire. At case compl etion the right femoral sheath was removed and hemostasis was achieived with manual compression. The right radial sheath was removed and hemostasis was achieved with a radial band inflated to 13mL of ai r. There were no acute complications. HEMODYNAMICS: AO: 130/80 LVEDP 9 mm Hg No gradient on LV to aortic pullback. LEFT VENTRICULOGRAM: Deferred due to known normal EF. CORONARY ANGIOGRAPHY: LM is a large caliber vessel with normal angiographic appearance. LAD is a large caliber vessel with normal angiographic appearance. D1 is a moderate caliber vessel with normal angiographic appearance. LCx is a moderate caliber non-dominant vessel with mild diffuse irregularities of up to 30% OM1 is a moderate caliber vessel with mild diffuse irregularities of up to 30%. RCA is a large caliber dominant vessel with normal angiographic appearance. RPDA is a moderate caliber vessels with normal angiographic appearance. Conclusion 1. Normal left sided filling pressures. 2. No significant coronary disease. Recommendations Continue medical therapy for nausea per GI. Consider other non-cardiac causes. Signed by : Cm Tim, Electronically Approved : 08/12/2020 14:19:11
--- NOTE | 2020-08-12 15:05 | NUR ---
Echo at bedside, pt on L side with pillow support. HASMUKH RN
--- NOTE | 2020-08-12 16:08 | NUR ---
Discharge Note: FRANK BECKWITH Discharge instructions and discharge home medications reviewed with Patient and a copy given. All questions have been answered and understanding verbalized. Dressing to R wrist is clean and dry, armboard in place, dressing to R groin dry and intact The following instructions and handouts were given: angiogram transradial, groin site care, sedation. Discontinued lines and drains: Peripheral IV intact. Patient discharged to Home or Self Care with Friend via Wheelchair HASMUKH RODRIGUEZ Addendum: 08/12/20 at 1611 by NIXON ALATORRE RN Amended: Links added.
--- NOTE | 2020-08-12 16:44 | CARD ---
MR#: [id number] Date of Study: 08/12/2020 Ordering Physician: YANG BELTRAN, Referring Physician: YANG BELTRAN, Tech: Michelle Alston [facility] APPROVED REPORT EXAM: Two-dimensional and M-mode echocardiogram with Doppler and color Doppler. Other Information Quality : Good Technically limited study due to body habitus. INDICATION Dyspnea S/P Cardiac Cath, Unstable Angina 2D DIMENSIONS RVDd2.9 (2.9-3.5cm)Left Atrium(2D)2.3 (1.6-4.0cm) IVSd0.6 (0.7-1.1cm)Aortic Root(2D)3.8 (2.0-3.7cm) LVDd4.7 (3.9-5.9cm)LVOT Diameter2.3 (1.8-2.4cm) PWd0.7 (0.7-1.1cm)LVDs2.9 (2.5-4.0cm) FS (%) 30.0 %LVEF(%)60.0 (>50%) Aortic Valve AoV Peak Rosendo.154.5cm/sAoV VTI28.7cm AO Peak GR.9.5mmHgLVOT VTI 16.27cm AO Mean GR.6mmHgAVA (VTI)2.30cm2 AI P 1/2 [id number] Mitral Valve MV E Anvndljz86.7cm/sMV DECEL [id number] MV A Knmkibhb09.3cm/sE/A Ratio0.6 TDI Lateral E' P. V5.66cm/sMedial E' P. V4.25cm/s E/Lateral E'7.7E/Medial E'10.3 Tricuspid Valve TR P. Dwwaeztm644rm/sRAP UCZEUJIP1tqGl TR Peak Gr.84efNfMTHC42izXw Pulmonary Vein S1 Ctnnyiix60.5cm/sS2 Korelnff53.49cm/s D2 Oqsrdoyd90.5cm/s LEFT VENTRICLE The left ventricle is normal size. There is normal left ventricular wall thickness. The left ventricu lar systolic function is normal and the ejection fraction is within normal range. The Ejection Fracti on is 55-60%. There is normal LV segmental wall motion. Transmitral Doppler flow pattern is Grade I-a bnormal relaxation pattern. RIGHT VENTRICLE The right ventricle is normal size. The right ventricular systolic function is normal. ATRIA The left atrium size is normal. The right atrium size is normal. The interatrial septum is intact wit h no evidence for an atrial septal defect or patent foramen ovale as noted on 2-D or Doppler imaging. AORTIC VALVE The aortic valve is normal in structure and function. Doppler and Color Flow revealed mild to moderat e aortic regurgitation. There is no significant aortic valvular stenosis. MITRAL VALVE The mitral valve is calcified but opens well. There is no evidence of mitral valve prolapse. There is no mitral valve stenosis. Doppler and Color Flow revealed no mitral valve regurgitation noted. TRICUSPID VALVE The tricuspid valve is normal in structure and function. Doppler and Color Flow revealed trace tricus pid regurgitation. The PA pressure was estimated at 38 mmHg. There is no tricuspid valve stenosis. PULMONIC VALVE The pulmonic valve is not well visualized. Doppler and Color Flow revealed no pulmonic valvular regur gitation. There is no pulmonic valvular stenosis. GREAT VESSELS The aortic root is moderately dilated at 3.8 cm. The ascending aorta is moderately dilated at 3.7 cm. The IVC is normal in size and collapses >50% with inspiration. PERICARDIAL EFFUSION There is no evidence of significant pericardial effusion. Critical Notification Critical Value: No <Conclusion> The left ventricular systolic function is normal and the ejection fraction is within normal range. Th e Ejection Fraction is 55-60%. There is normal LV segmental wall motion. Doppler and Color Flow revealed mild to moderate aortic regurgitation. The ascending aorta is moderately dilated at 3.7 cm. The aortic root is moderately dilated at 3.8 cm. Signed by : Yang Beltran, Electronically Approved : 08/12/2020 16:44:24
== END 2020-08-12 16:13 | disposition home or self-care (01) ==
LOC: CCL 11:08
PROVIDERS: ATTEND Internal Medicine Cardiovascular Disease
DX: I20.0 Unstable angina (principal); R06.00 Dyspnea, unspecified; I10 Essential (primary) hypertension; E78.00 Pure hypercholesterolemia, unspecified; K21.9 Gastro-esophageal reflux disease without esophagitis; M19.90 Unspecified osteoarthritis, unspecified site; F41.9 Anxiety disorder, unspecified; F32.9 Major depressive disorder, single episode, unspecified; Z98.51 Tubal ligation status; Z98.890 Other specified postprocedural states; Z79.899 Other long term (current) drug therapy; Z79.82 Long term (current) use of aspirin; Z88.8 Allergy status to other drugs, medicaments and biological substances
CPT/HCPCS: 36415; 80048; 85027; 85610; 87426; 93306; 93458; 99152; 99153; C1769; C1892; J1644; J3010; J3490; Q9967